=== PATIENT | male | born 1970 | race Caucasian/White ===

== ENCOUNTER → 2017-08-19 16:38 | Outpatient (CLI) | payer MEDICAID, SELFPAY ==
[2017-08-19 17:53] LABS: C-Reactive Protein < 0.2 mg/L (0.0-0.9)
[2017-08-19 19:29] LABS: Erythrocyte Sedimentation Rate 5 mm/hr (0-15)
== END ==
PROVIDERS: PCP Emergency Medicine; Visit Provider Orthopaedic Surgery
DX: T84.84XA Pain due to internal orthopedic prosthetic devices, implants and grafts, initial encounter (principal)
CPT/HCPCS: 36415; 85651; 86140

== ENCOUNTER → 2017-10-07 08:24 | Outpatient (CLI) | payer MEDICAID, SELFPAY ==
--- NOTE | 2017-10-07 08:23 | XR_ITS ---
XR shoulder RT min 2V HISTORY: ITS.REASON: Right shoulder pain ORDERING PHYSICIAN: Varinder Zazueta MD PATIENT AGE: 46 years COMPARISON: FINDINGS: No fracture or dislocation. No lytic or blastic change. There is normal mineralization. The joint spaces are well-preserved. No significant degenerative/arthritic changes. No erosive changes evident. No significant subacromial stenosis IMPRESSION: Negative, no acute finding
== END ==
PROVIDERS: Family Provider Nurse Practitioner Family; PCP Emergency Medicine; Visit Provider Orthopaedic Surgery
DX: M25.511 Pain in right shoulder (principal)
CPT/HCPCS: 73030

== ENCOUNTER 2017-11-03 15:00 | Outpatient (RCR) | payer MEDICAID, SELFPAY ==
--- NOTE | 2017-10-13 13:37 | HMH.PTOPEV ---
Rehab Outpatient Evaluation Rehab OP Evaluation Start: 10/13/17 13:19 Freq: Status: Active Protocol: Document 10/13/17 13:19 RMARSHALOlivia (Rec: 10/13/17 13:37 [id number] Electronically Signed By Shirley Oliva OT 10/13/17 13:19 Outpatient Therapy Subjective History Subjective History Pt is a 46 year old male who reports to therapy for initial evaluation to Right shoulder. Pt reports his pain began in July 2017 at right shoulder. However, pt does not recall a specific injury causing his pain. Pt does demonstrate with slight decrease of AROM and strength at right shoulder upon evaluation. Pt also informed therapist that last he did have an injection in the shoulder and since then the joint has been less painful. Pt will continue to be seen in order to address these deficits. Chief Complaint Pain Stiff Symptom Type Ache Throb Sharp Stabbing Shooting Symptoms Relieved By Nothing Symptoms Aggravated By Physical Activity Lifting Prior Functional Limitations None Current Functional Limitations Reaching Lifting Housework Driving Sleeping Recreation Activity Symptom Description Intermittent Activity Dependent Level of pain today (0-10) 1 Pain scale - at its best (0-10) 1 Pain scale - at its worst (0-10) 8 Shoulder/Elbow Eval Shoulder Objective Measurements Shoulder ROM Left Shoulder Abduction Active Range of 170 degrees Motion (degrees) Shoulder Flexion Active Range of Motion 162 degrees (degrees) Query Text: Shoulder External Rotation Active Range 85 degrees of Motion (degrees) Shoulder Internal Rotation Active Range 90 degrees of Motion (degrees) pain with active ROM shoulder exam left standard pain with passive ROM shoulder exam left
== END 2017-11-03 15:01 | disposition home or self-care (01) ==
LOC: OT 15:00
PROVIDERS: Family Provider Nurse Practitioner Family; PCP Emergency Medicine; Visit Provider Orthopaedic Surgery
DX: M75.41 Impingement syndrome of right shoulder (principal)
CPT/HCPCS: 97014; 97033; 97110; 97166; G0283

== ENCOUNTER 2018-02-17 11:00 | Outpatient (RCR) | payer MEDICAID, SELFPAY | END 2018-02-17 11:01 | disposition home or self-care (01) | LOC: OT 11:00 | PROVIDERS: Family Provider Nurse Practitioner Family; PCP Emergency Medicine; Visit Provider Orthopaedic Surgery | DX: M75.41 Impingement syndrome of right shoulder (principal) | CPT/HCPCS: 97033; 97110; 97165 ==

== ENCOUNTER → 2018-11-30 12:26 | Outpatient (CLI) | payer MEDICAID, SELFPAY ==
[2018-11-30 12:47] LABS: Basophils # 0.1 K/mm3 (0-0.2); Basophils % 1.3 % (0.1-2.0); Eosinophils # 0.3 K/mm3 (0.0-0.4); Eosinophils % 4.7 % (0.1-12.0); Hematocrit 49.7 % (42.0-52.0); Hemoglobin 15.6 g/dL (14.1-18.0); Lymphocytes # 1.9 K/mm3 (0.7-4.5); Lymphocytes % 26.4 % (10-50); Mean Corpuscular HGB Conc 31.3 g/dL (31.8-35.4); Mean Corpuscular Hemoglobin 28.7 pg (27.0-31.2); Mean Corpuscular Volume 91.6 fl (80-94); Mean Platelet Volume 8.5 fl (7.4-10.4); Monocytes # 0.5 K/mm3 (0.1-1.0); Monocytes % 6.8 % (1.7-9.3); Neutrophils # 4.4 K/mm3 (1.8-7.8); Neutrophils % 60.8 % (37.0-80.0); Platelet Count 257 K/mm3 (142-424); Red Blood Count 5.43 M/mm3 (4.60-6.20); Red Cell Distribution Width 13.4 % (11.5-17.5); White Blood Count 7.3 K/mm3 (4.8-10.8)
[2018-11-30 13:32] LABS: Amphetamine/Metha Screen,Urine Negative ng/mL (<1000); Barbiturates Screen,Urine Negative ng/mL (<200); Benzodiazepines Screen,Urine Negative ng/mL (<200); Cannabinoid Screen,Urine Negative ng/mL (<50); Cocaine Screen,Urine Negative ng/mL (<300); Methadone Screen,Urine Negative ng/mL (<300); Opiate Screen,Urine Positive ng/mL (<300); Phencyclidine Screen,Urine Negative ng/mL (<25)
[2018-11-30 14:40] LABS: Alanine Aminotransferase 79 U/L (12-78); Albumin Level 3.9 gm/dL (3.4-5.0); Alkaline Phosphatase 89 U/L (46-116); Anion Gap 16.7 mEq/L (5-15); Aspartate Amino Transferase 58 U/L (15-37); Bilirubin,Total 0.9 mg/dL (0.2-1.0); Blood Urea Nitrogen 16 mg/dL (7-18); Calcium 9.2 mg/dL (8.5-10.1); Carbon Dioxide 25 mmol/L (21.0-32.0); Chloride 102 mmol/L (98-107); Chol/HDL Ratio 7.6 (1-3.5); Cholesterol 242 mg/dL (140-200); Creatinine,Serum 1.17 mg/dL (0.70-1.30); Estimated Glomerular Filt Rate 67 ml/min (>60); Free Thyroxine Index 1.7 ug/dL (5.93-13.13); GFR (African American) 82 ML/MIN (>60); Globulin 3.8 gm/dl (1.3-3.2); Glucose 156 mg/dL (74-106); HDL Cholesterol 32 mg/dL (27-67); LDL Cholesterol 143 mg/dL (0-130); Potassium 4.7 mmoL/L (3.5-5.1); Sodium 139 mmol/L (136-145); T4 (Thyroxine) 5.8 ug/dl (4.7-13.3); Thyroid Stimulating Hormone 2.77 uIU/ml (0.358-3.740); Total Protein,Serum 7.7 gm/dL (6.4-8.2); Triglycerides 337 mg/dL (30-200); Triiodothryronine (T3) Uptake 30 % (31-39); VLDL Cholesterol 67 mg/dL (0-40)
== END ==
PROVIDERS: Visit Provider Nurse Practitioner Psychiatric/Mental Health
DX: F31.81 Bipolar II disorder (principal)
CPT/HCPCS: 36415; 80053; 80061; 80305; 84436; 84443; 84479; 85025

== ENCOUNTER → 2020-01-31 08:28 | Outpatient (CLI) | payer MEDICAID, SELFPAY ==
[2020-01-31 09:01] LABS: Basophils # 0.1 K/mm3 (0-0.2); Basophils % 1.1 % (0.1-2.0); Eosinophils # 0.5 K/mm3 (0.0-0.4); Eosinophils % 4.9 % (0.1-12.0); Hematocrit 42.7 % (42.0-52.0); Hemoglobin 14.9 g/dL (14.1-18.0); Lymphocytes # 2.1 K/mm3 (0.7-4.5); Lymphocytes % 22.2 % (10-50); Mean Corpuscular Hemoglobin 30.6 pg (27.0-31.2); Mean Corpuscular Volume 87.4 fl (80-94); Mean Platelet Volume 7.4 fl (7.4-10.4); Monocytes # 0.9 K/mm3 (0.1-1.0); Monocytes % 9.2 % (1.7-9.3); Neutrophils % 62.5 % (37.0-80.0); Platelet Count 343 K/mm3 (142-424); Red Blood Count 4.88 M/mm3 (4.60-6.20); Red Cell Distribution Width 13.6 % (11.5-17.5); White Blood Count 9.6 K/mm3 (4.8-10.8)
[2020-01-31 10:35] LABS: Chloride 103 mmol/L (98-107); Potassium 4.8 mmoL/L (3.5-5.1); Sodium 137 mmol/L (136-145)
[2020-01-31 10:38] LABS: Alanine Aminotransferase 36 U/L (12-78); Albumin Level 4.3 g/dl (3.5-5.0); Albumin/Globulin Ratio 1.5 (1.1-1.8); Alkaline Phosphatase 75 U/L (38-126); Anion Gap 15.8 mEq/L (5-15); Aspartate Amino Transferase 38 U/L (17-59); Bilirubin,Total 0.6 mg/dl (0.2-1.3); Blood Urea Nitrogen 19 mg/dl (9-20); Carbon Dioxide 23 mmol/L (22.0-30.0); Cholesterol 233 mg/dl (140-200); Estimated Glomerular Filt Rate 80 ml/min (>60); GFR (African American) 97 ML/MIN (>60); Globulin 2.8 g/dL (1.3-3.2); Total Protein,Serum 7.1 g/dl (6.3-8.2); Triglycerides 282 mg/dl (30-150); VLDL Cholesterol 56 mg/dL (0-40)
[2020-01-31 10:39] LABS: Calcium 10.1 mg/dl (8.4-10.2); Chol/HDL Ratio 7.8 (1-3.5); Glucose 132 mg/dl (74-100); HDL Cholesterol 30 mg/dl (40-60)
[2020-01-31 10:50] LABS: Direct LDL Cholesterol 154.86 mg/dL (100-129)
[2020-01-31 10:56] LABS: T4 (Thyroxine) 7.2 ug/dl (5.53-11.0)
[2020-01-31 11:09] LABS: Thyroid Stimulating Hormone 2.38 uIU/mL (0.465-4.68)
[2020-01-31 11:24] LABS: 25-OH Vitamin D, Total 28.2 ng/mL (30-100)
[2020-02-02 16:25] LABS: Hemoglobin A1C 6.6 % (4.0-6.0)
== END ==
PROVIDERS: Visit Provider Nurse Practitioner Family
DX: I10 Essential (primary) hypertension (principal); Z13.0 Encounter for screening for diseases of the blood and blood-forming organs and certain disorders involving the immune mechanism; Z13.21 Encounter for screening for nutritional disorder; Z13.29 Encounter for screening for other suspected endocrine disorder; R73.9 Hyperglycemia, unspecified; E55.9 Vitamin D deficiency, unspecified
CPT/HCPCS: 36415; 80053; 80061; 82306; 83036; 84436; 84443; 85025

== ENCOUNTER → 2020-03-13 13:51 | Outpatient (CLI) | payer MEDICAID, SELFPAY ==
[2020-03-13 14:31] LABS: Microalbumin/Creatinine Ratio 33.6
[2020-03-13 14:49] LABS: Creatinine,Urine Random 69 mg/dL (Not Estab.)
== END ==
PROVIDERS: Visit Provider Nurse Practitioner Family
DX: E11.9 Type 2 diabetes mellitus without complications (principal)
CPT/HCPCS: 82043; 82570

== ENCOUNTER → 2020-06-12 18:23 | Outpatient (CLI) | payer MEDICAID, SELFPAY ==
[2020-06-12 18:47] LABS: Basophils # 0.2 K/mm3 (0-0.2); Basophils % 2.8 % (0.1-2.0); Eosinophils # 0.4 K/mm3 (0.0-0.4); Eosinophils % 5.8 % (0.1-12.0); Hematocrit 48.7 % (42.0-52.0); Hemoglobin 16.4 g/dL (14.1-18.0); Lymphocytes # 1.5 K/mm3 (0.7-4.5); Lymphocytes % 23.6 % (10-50); Mean Corpuscular HGB Conc 33.7 g/dL (31.8-35.4); Mean Corpuscular Volume 86.1 fl (80-94); Mean Platelet Volume 11.5 fl (7.4-10.4); Monocytes # 0.5 K/mm3 (0.1-1.0); Monocytes % 8.2 % (1.7-9.3); Neutrophils # 3.8 K/mm3 (1.8-7.8); Neutrophils % 59.7 % (37.0-80.0); Platelet Count 313 K/mm3 (142-424); Red Blood Count 5.66 M/mm3 (4.60-6.20); Red Cell Distribution Width 15.8 % (11.5-17.5); White Blood Count 6.4 K/mm3 (4.8-10.8)
[2020-06-12 18:56] LABS: Alanine Aminotransferase 46 U/L (12-78); Albumin Level 4.7 g/dl (3.5-5.0); Albumin/Globulin Ratio 1.6 (1.1-1.8); Alkaline Phosphatase 84 U/L (38-126); Anion Gap 15.2 mEq/L (5-15); Aspartate Amino Transferase 36 U/L (17-59); Bilirubin,Total 0.9 mg/dl (0.2-1.3); Blood Urea Nitrogen 25 mg/dl (9-20); Calcium 10.2 mg/dl (8.4-10.2); Carbon Dioxide 23 mmol/L (22.0-30.0); Chloride 104 mmol/L (98-107); Chol/HDL Ratio 4.7 (1-3.5); Cholesterol 210 mg/dl (140-200); Estimated Glomerular Filt Rate 80 ml/min (>60); GFR (African American) 97 ML/MIN (>60); Globulin 2.9 g/dL (1.3-3.2); Glucose 124 mg/dl (74-100); HDL Cholesterol 45 mg/dl (40-60); Potassium 4.2 mmoL/L (3.5-5.1); Sodium 138 mmol/L (136-145); Total Protein,Serum 7.6 g/dl (6.3-8.2); Triglycerides 321 mg/dl (30-150); VLDL Cholesterol 64 mg/dL (0-40)
[2020-06-12 19:07] LABS: Direct LDL Cholesterol 112.44 mg/dL (100-129)
[2020-06-12 19:13] LABS: T4 (Thyroxine) 5.4 ug/dl (5.53-11.0)
[2020-06-12 19:27] LABS: Thyroid Stimulating Hormone 2.87 uIU/mL (0.465-4.68)
[2020-06-12 21:52] LABS: Hemoglobin A1C 5.7 % (4.0-6.0)
== END ==
PROVIDERS: PCP Nurse Practitioner Family; Visit Provider Nurse Practitioner Family
DX: E11.9 Type 2 diabetes mellitus without complications (principal); I10 Essential (primary) hypertension; Z79.899 Other long term (current) drug therapy
CPT/HCPCS: 80053; 80061; 82306; 83036; 84436; 84443; 85025

== ENCOUNTER → 2020-06-17 17:36 | Outpatient (CLI) | payer MEDICAID, SELFPAY | PROVIDERS: PCP Nurse Practitioner Family; Visit Provider Nurse Practitioner Family | DX: Z20.822 Contact with and (suspected) exposure to COVID-19 (principal); U07.1 COVID-19 | CPT/HCPCS: U0003 ==

== ENCOUNTER → 2020-09-23 15:31 | Outpatient (CLI) | payer MEDICAID, SELFPAY ==
[2020-09-23 16:32] LABS: Basophils # 0.1 K/mm3 (0-0.2); Basophils % 1.1 % (0.1-2.0); Eosinophils # 0.2 K/mm3 (0.0-0.4); Eosinophils % 3.2 % (0.1-12.0); Hematocrit 46.9 % (42.0-52.0); Hemoglobin 15.2 g/dL (14.1-18.0); Lymphocytes # 1.6 K/mm3 (0.7-4.5); Lymphocytes % 20.6 % (10-50); Mean Corpuscular HGB Conc 32.5 g/dL (31.8-35.4); Mean Corpuscular Hemoglobin 28.3 pg (27.0-31.2); Mean Corpuscular Volume 87.2 fl (80-94); Monocytes # 0.6 K/mm3 (0.1-1.0); Monocytes % 7.9 % (1.7-9.3); Neutrophils # 5.2 K/mm3 (1.8-7.8); Neutrophils % 67.4 % (37.0-80.0); Platelet Count 321 K/mm3 (142-424); Red Blood Count 5.38 M/mm3 (4.60-6.20); Red Cell Distribution Width 13.6 % (11.5-17.5); White Blood Count 7.7 K/mm3 (4.8-10.8)
[2020-09-23 16:39] LABS: Creatinine,Urine Random 135 mg/dL (Not Estab.)
[2020-09-23 16:44] LABS: Microalbumin/Creatinine Ratio 109.7
[2020-09-23 16:54] LABS: Hemoglobin A1C 5.8 % (4.0-6.0)
[2020-09-23 17:04] LABS: Alanine Aminotransferase 51 U/L (12-78); Albumin/Globulin Ratio 1.9 (1.1-1.8); Alkaline Phosphatase 86 U/L (38-126); Anion Gap 15.9 mEq/L (5-15); Aspartate Amino Transferase 39 U/L (17-59); Bilirubin,Total 0.7 mg/dl (0.2-1.3); Blood Urea Nitrogen 20 mg/dl (9-20); Calcium 10.2 mg/dl (8.4-10.2); Carbon Dioxide 22 mmol/L (22.0-30.0); Chloride 106 mmol/L (98-107); Chol/HDL Ratio 4.8 (1-3.5); Cholesterol 222 mg/dl (140-200); Estimated Glomerular Filt Rate 104 ml/min (>60); GFR (African American) 125 ML/MIN (>60); Globulin 2.6 g/dL (1.3-3.2); Glucose 115 mg/dl (74-100); HDL Cholesterol 46 mg/dl (40-60); Potassium 4.9 mmoL/L (3.5-5.1); Sodium 139 mmol/L (136-145); Total Protein,Serum 7.6 g/dl (6.3-8.2); Triglycerides 206 mg/dl (30-150); VLDL Cholesterol 41 mg/dL (0-40)
[2020-09-23 17:16] LABS: Direct LDL Cholesterol 124.95 mg/dL (100-129)
[2020-09-23 17:22] LABS: 25-OH Vitamin D, Total 121 ng/mL (30-100); T4 (Thyroxine) 5.7 ug/dl (5.53-11.0)
[2020-09-23 17:35] LABS: Prostate Specific Ag Screen 0.4 ng/ml (0.0-4.0); Thyroid Stimulating Hormone 0.99 uIU/mL (0.465-4.68)
== END ==
PROVIDERS: Visit Provider Nurse Practitioner Family
DX: E11.9 Type 2 diabetes mellitus without complications (principal); I10 Essential (primary) hypertension; E67.3 Hypervitaminosis D
CPT/HCPCS: 36415; 80053; 80061; 82043; 82306; 82570; 83036; 84436; 84443; 85025; G0103

== ENCOUNTER 2020-11-15 14:33 | Emergency (ER) | payer MEDICAID, SELFPAY ==
[2020-11-15 15:08] VITALS: BP 132/83; PULSE 84; RESP 19; TEMP 36.7; O2SAT 96; BMI 31.0
[2020-11-15 15:26] VITALS: BP 131/86; PULSE 75; RESP 16; TEMP 36.6; O2SAT 98; BMI 30.5
[2020-11-15 15:30] VITALS: BP 142/76; PULSE 85; RESP 20; O2SAT 97
--- NOTE | 2020-11-15 15:38 | CT_ITS ---
PROCEDURE INFORMATION: Exam: CT Right Lower Extremity Without Contrast; Lower Leg Exam date and time: 11/15/2020 3:38 PM Age: 49 years old Clinical indication: Pain; Lower leg; Right; Prior surgery; Additional info: Trauma. . . Log fell on leg 1 week ago; Severe bruising around calf area TECHNIQUE: Imaging protocol: CT of the Right lower extremity without contrast was performed. Exam focused on the lower leg. 3D rendering (Not supervised by radiologist): MIP and/or 3D reconstructed images were created by the technologist. Radiation optimization: All CT scans at this facility use at least one of these dose optimization techniques: automated exposure control; mA and/or kV adjustment per patient size (includes targeted exams where dose is matched to clinical indication); or iterative reconstruction. COMPARISON: No relevant prior studies available. FINDINGS: Bones/joints: No fracture. Postoperative changes in the knee. Soft tissues: 4.1 by 2.2 by 8 cm hematoma in the subcutaneous fat closely applied to the medial border of the mid tibia. IMPRESSION: 1. 4.1 by 2.2 by 8 cm hematoma in the subcutaneous fat closely applied to the medial border of the mid tibia. 2. No fracture.
--- NOTE | 2020-11-15 15:59 | HMH.EDGENADL ---
ED Disposition Clinical Impression: Crushing injury of right leg Qualifiers: Encounter type: initial encounter Qualified Code(s): S87.81XA - Crushing injury of right lower leg, initial encounter Disposition: Home, Self-Care Condition on Discharge: Good Instructions: DI for Crush Injury Referrals: Imani Peña APRN [Primary Care Provider] - - Critical Care Critical Care Time: No Attestation: On 11/15/20, the high probability of a clinically significant, sudden or life threatening deterioration of the following system(s) required my full and direct attention, intervention and personal management. The time I documented below is in addition to time spent performing reported procedures but includes the following listed in this critical care notation. Medical Decision Making - Medical Records Medical records reviewed: Yes: I reviewed the patient's medical records. - [place] Inquiry Pt receiving controlled substance: No Vital Signs: 11/15/20 15:08 11/15/20 15:26 11/15/20 15:30 Temperature 98.1 F 98 F Temperature Source Oral Oral Pulse Rate 85 Pulse Rate [Left] 84 75 Respiratory Rate 19 16 20 Blood Pressure 142/76 H Blood Pressure [Right Arm] 132/83 131/86 Blood Pressure Mean 98 Blood Pressure Mean [Right Arm] 99 101 02 Sat by Pulse Oximetry 96 98 97 Orders (Tests/Meds): ED MEDICATIONS Discontinued Medications Generic Name Dose Route Start Last Admin Trade Name Freq PRN Reason Stop Dose Admin Ibuprofen 800 mg 11/15/20 15:38 11/15/20 15:56 Ibuprofen 400 Mg Tablet PO 11/15/20 15:39 Not Given ONCE ONE - CT Data CT Scan: Other (right lower extremity) Time Received: 16:[address] Reviewed: Yes: I have reviewed the patient's CT results, I have viewed the radiologist's interpretation Findings Narrative: IMPRESSION: 1. 4.1 by 2.2 by 8 cm hematoma in the subcutaneous fat closely applied to the medial border of the mid tibia. 2. No fracture. - Reevaluation(s) Time: 16:28 Reevaluation #1: On reevaluation, patient is feeling much better. CT scan showed a large hematoma, however no fracture. Repeat neurologic exam is normal. Patient will follow with PCP. Given strict return precautions. Verbalized understanding. Medical Decision Narrative: 49-year-old male presented to the emergency department with a crush injury to the right leg. Patient is ambulatory at this time. Imaging will be obtained. General Adult HPI - General Chief complaint: Extremity Injury, Lower Stated complaint: ao rt leg pain 11/08 Time Seen by Provider: 11/15/20 15:15 Mode of Arrival: Ambulatory Limitations: No Limitations Description of Symptoms (Recalled from ER Triage Doc. by RN): pt was dragging a log and dropped it on his R leg last Wed. pt now has purple bruising down to his foot. on the inside of his lower leg he has a softball size hematoma. the log also clipped his L leg below the knee with a bruise about the size of a half dollar. - History of Present Illness HPI narrative: 49-year-old male presented to the emergency department with some pain in his right lower leg. Patient states that a week ago he had a log fall on his leg. He did not seek medical attention at that time. States that the swelling has been progressing throughout the week. However the ecchymosis has actually been improving. The patient did have some bruising from the upper knee all the way down to his ankle. Patient states that it is starting to lighten up a bit. States the pain is mostly located in the medial aspect of his lower leg. Is worse when the patient bears weight. He denies any new trauma to the injury. No other injuries were sustained. Denies any chest pain or shortness of breath. Abdominal pain or vomiting. Headache or change in vision. No focal weakness. - Related Data Home Medications Medication Instructions Recorded Confirmed bupropion HCl 300 mg 24 hr tablet, 300 mg PO DAILY tab
[2020-11-15 16:39] VITALS: BP 114/67; PULSE 68; RESP 19; TEMP 36.8
== END 2020-11-15 16:39 | disposition home or self-care (01) ==
LOC: UTC 14:36 → ER 15:22
PROVIDERS: Emergency Provider Physician Assistant; PCP Nurse Practitioner Family
DX: S87.81XA Crushing injury of right lower leg, initial encounter (principal); W22.8XXA Striking against or struck by other objects, initial encounter; Y92.89 Other specified places as the place of occurrence of the external cause; E11.9 Type 2 diabetes mellitus without complications; E78.5 Hyperlipidemia, unspecified; K21.9 Gastro-esophageal reflux disease without esophagitis; I10 Essential (primary) hypertension
CPT/HCPCS: 73700; 99282

== ENCOUNTER → 2020-12-05 12:57 | Outpatient (POV) | payer MEDICAID, SELFPAY | PROVIDERS: Visit Provider Internal Medicine Nephrology | DX: Z00.00 Encounter for general adult medical examination without abnormal findings (principal) ==

== ENCOUNTER → 2020-12-27 13:05 | Outpatient (CLI) | payer MEDICAID, SELFPAY ==
--- NOTE | 2020-12-27 13:09 | XR_ITS ---
PROCEDURE: XR HAND LT MIN 3V CLINICAL INDICATION: BL thumb pain COMPARISON: CR [id number] XR hand RT min 3V from 07/09/2018 FINDINGS: No fracture or dislocation. No lytic or blastic change. There is normal mineralization. The joint spaces are well-preserved. Minor degenerative changes of the 1st CMC joint. No erosive changes evident. Other: No significant soft tissue abnormality. IMPRESSION: No acute findings. Dictated by: Aspen Mosquera 12/27/2020 13:39 Aspen Mosquera in [place] 12/27/2020 13:39
--- NOTE | 2020-12-27 13:09 | XR_ITS ---
PROCEDURE: XR HAND RT MIN 3V CLINICAL INDICATION: BL thumb pain COMPARISON: CR [id number] XR hand RT min 3V from 07/09/2018 FINDINGS: Deformity of the right 5th metacarpal is noted, likely sequela of prior injury. No interval change. Healed fracture at the base of the middle phalanx of the right 4th digit. The rest of the carpals, metacarpals and phalanges are unremarkable. No acute fractures or dislocations. Bone density is normal. The joint spaces are well-preserved. No significant degenerative/arthritic changes. No erosive changes evident. Other findings:No significant soft tissue abnormality. IMPRESSION: Deformity of the right 5th metacarpal. Otherwise unremarkable study. Dictated by: Aspen Mosquera 12/27/2020 13:38 Aspen Mosquera in [facility] 12/27/2020 13:38
== END ==
PROVIDERS: PCP Nurse Practitioner Family; Visit Provider Orthopaedic Surgery
DX: M79.644 Pain in right finger(s) (principal); M79.645 Pain in left finger(s)
CPT/HCPCS: 73130

== ENCOUNTER → 2021-01-22 07:53 | Outpatient (CLI) | payer MEDICAID, SELFPAY ==
--- NOTE | 2021-01-22 08:03 | XR_ITS ---
PROCEDURE: XR CHEST 2V CLINICAL HISTORY: rib pain COMPARISON: No exams were available for comparison FINDINGS: The cardiomediastinal silhouette and pulmonary vascularity are within normal limits. The lungs are clear without infiltrates, suspicious nodules, or pleural effusions. No acute bony abnormalities. IMPRESSION: No acute findings. Dictated by: Jacob Cerrato MD 01/22/2021 08:13 Jacob Cerrato MD in [facility] 01/22/2021 08:13
== END ==
PROVIDERS: PCP Nurse Practitioner Family; Visit Provider Nurse Practitioner Family
DX: R10.9 Unspecified abdominal pain (principal)
CPT/HCPCS: 71046

== ENCOUNTER 2021-01-29 11:42 | Outpatient (RCR) | payer MEDICAID, SELFPAY | END 2021-01-29 13:00 | disposition home or self-care (01) | LOC: OT 11:42 | PROVIDERS: Visit Provider Orthopaedic Surgery | DX: G56.03 Carpal tunnel syndrome, bilateral upper limbs (principal) | CPT/HCPCS: 97763 ==

== ENCOUNTER 2021-01-31 08:16 | Outpatient (RCR) | payer MEDICAID, SELFPAY ==
--- NOTE | 2021-01-31 09:20 | HMH.PTOPEV ---
PT Outpatient Evaluation Rehab PT Outpatient Evaluation Start: 01/31/21 08:24 Freq: Status: Active Protocol: Document 01/31/21 09:09 TRISHA (Rec: 01/31/21 09:20 PHOROBERT [id number]) Electronically Signed By Emre Reagan, PT 01/31/21 09:09 Outpatient Therapy Subjective History Subjective History Pt is 50 yowm who presents with c/o intermittent pain in posterior side of his left flank x ~ 2-3 mos with insidious onset. He reports pain is sharp and can last anywhere from 5 mins to many hours. He reports no particular activity, movement, or time of day that exacerbates his symptoms. He reports trying ice, heat, and topical creams with no relief. He reports no numbness or tingling in the area. He states, It about the size of my fist right below my shoulder blade on my ribs. He does have hx of donating a kidney to a family member in the past, but he is unsure which side the kidney was removed from. Chief Complaint Pain Symptom Type Sharp Symptoms Relieved By Nothing Prior Functional Limitations None Current Functional Limitations Sleeping Symptom Description Intermittent Level of pain today (0-10) 0 Pain scale - at its worst (0-10) 7 Lumbopelvic Eval Posture Thoracic Spine Posture Standing Position Neutral Lumbar Spine Posture Standing Position Neutral Range of Motion Lumbar Spine ROM Reason Not Measured Within Functional Limits Outpatient Therapy Assessment Impairments Problems/Impairmments Impaired Recreational Activities,Subjective C/O Pain ,Impaired Self Care/Self Management Prognosis Rehab Potential Good Clinical Impression Consistent with Diagnosis Yes Short Term Goals Number of Weeks 4 Decrease Subjective C/O Pain Yes: 4/10 at worst Patient to be Ind w/ HEP Yes Longterm Goals Number of Weeks 8 Return to Recreational Activities Yes: without pain Decrease Subjective C/O Pain Yes: 2/10 at worst Patient to be Ind w/ Advanced HEP Yes Outpatient Therapy Plan of Care Treatment Plan May Include Therapeutic Exercise Including Home
== END 2021-01-31 08:20 | disposition home or self-care (01) ==
LOC: PT 08:16
PROVIDERS: Visit Provider Nurse Practitioner Family
DX: R10.9 Unspecified abdominal pain (principal)
CPT/HCPCS: 97163

== ENCOUNTER → 2021-03-04 09:53 | Outpatient (CLI) | payer MEDICAID, SELFPAY ==
--- NOTE | 2021-03-04 09:55 | XR_ITS ---
PROCEDURE: XR ANKLE WT BEARING RT MIN 3V CLINICAL INDICATION: ankle pain COMPARISON: No exams were available for comparison FINDINGS: Bones: No fracture or dislocation. No lytic or blastic change. There is normal mineralization. Joints: The joint spaces are well-preserved. No significant degenerative/arthritic changes. No erosive changes evident. Other findings:There is a small calcaneal spur IMPRESSION: No acute findings. Dictated by: Jacob Cerrato MD 03/04/2021 11:53 Jacob Cerrato MD in [place] 03/04/2021 11:53
== END ==
PROVIDERS: PCP Emergency Medicine; Visit Provider Orthopaedic Surgery
DX: M25.571 Pain in right ankle and joints of right foot (principal)
CPT/HCPCS: 73610

== ENCOUNTER → 2021-06-03 18:27 | Outpatient (CLI) | payer MEDICAID, SELFPAY ==
[2021-06-03 20:05] LABS: Alanine Aminotransferase 38 U/L (12-78); Albumin Level 4.3 g/dl (3.5-5.0); Albumin/Globulin Ratio 1.5 (1.1-1.8); Alkaline Phosphatase 70 U/L (38-126); Anion Gap 14.2 mEq/L (5-15); Aspartate Amino Transferase 65 U/L (17-59); Bilirubin,Total 1.1 mg/dl (0.2-1.3); Blood Urea Nitrogen 27 mg/dl (9-20); Calcium 9.1 mg/dl (8.4-10.2); Carbon Dioxide 18 mmol/L (22.0-30.0); Chloride 107 mmol/L (98-107); Estimated Glomerular Filt Rate 103 ml/min (>60); GFR (African American) 125 ML/MIN (>60); Globulin 2.8 g/dL (1.3-3.2); Glucose 131 mg/dl (74-100); Potassium 5.2 mmoL/L (3.5-5.1); Sodium 134 mmol/L (136-145); Total Protein,Serum 7.1 g/dl (6.3-8.2)
[2021-06-03 20:20] LABS: T4 (Thyroxine) 4.7 ug/dl (5.53-11.0)
[2021-06-03 20:33] LABS: Thyroid Stimulating Hormone 1.04 uIU/mL (0.465-4.68)
== END ==
PROVIDERS: Visit Provider Nurse Practitioner Family
DX: R23.2 Flushing (principal)
CPT/HCPCS: 80053; 84403; 84436; 84443

== ENCOUNTER → 2021-07-24 07:35 | Outpatient (CLI) | payer MEDICAID, SELFPAY ==
[2021-07-24 09:37] LABS: Chloride 103 mmol/L (98-107); Sodium 132 mmol/L (136-145)
[2021-07-24 09:38] LABS: Potassium 4.6 mmoL/L (3.5-5.1)
[2021-07-24 09:40] LABS: Alanine Aminotransferase 25 U/L (12-78); Albumin Level 4.2 g/dl (3.5-5.0); Albumin/Globulin Ratio 1.8 (1.1-1.8); Alkaline Phosphatase 65 U/L (38-126); Anion Gap 7.6 mEq/L (5-15); Aspartate Amino Transferase 25 U/L (17-59); Bilirubin,Total 0.6 mg/dl (0.2-1.3); Blood Urea Nitrogen 21 mg/dl (9-20); Carbon Dioxide 26 mmol/L (22.0-30.0); Cholesterol 194 mg/dl (140-200); Estimated Glomerular Filt Rate 103 ml/min (>60); GFR (African American) 125 ML/MIN (>60); Globulin 2.4 g/dL (1.3-3.2); Total Protein,Serum 6.6 g/dl (6.3-8.2); Triglycerides 134 mg/dl (30-150); VLDL Cholesterol 27 mg/dL (0-40)
[2021-07-24 09:41] LABS: Calcium 8.7 mg/dl (8.4-10.2); Chol/HDL Ratio 3.9 (1-3.5); Glucose 112 mg/dl (74-100); HDL Cholesterol 50 mg/dl (40-60)
[2021-07-24 09:52] LABS: Direct LDL Cholesterol 119.07 mg/dL (100-129)
[2021-07-24 10:12] LABS: Thyroid Stimulating Hormone 2.06 uIU/mL (0.465-4.68)
[2021-07-24 11:40] LABS: Hemoglobin A1C 5.9 % (4.0-6.0)
== END ==
PROVIDERS: PCP Emergency Medicine; Visit Provider Nurse Practitioner Psychiatric/Mental Health
DX: F31.81 Bipolar II disorder (principal)
CPT/HCPCS: 36415; 80053; 80061; 83036; 84443

== ENCOUNTER → 2021-07-31 14:10 | Outpatient (CLI) | payer MEDICAID, SELFPAY ==
--- NOTE | 2021-07-31 14:13 | XR_ITS ---
FINAL REPORT CLINICAL HISTORY: injury with bruising, pt fell through a wood trailer floor last , bruising all over his left lower leg. FINDINGS: LEFT TIBIA FIBULA 2 views were obtained. There is no acute fracture or dislocation. The joint spaces are intact. There is a moderate plantar spur. There is no soft tissue abnormality. IMPRESSION: No acute bony abnormality. Reviewed, Interpreted and Dictated by Ayaan Gonzáles MD Transcribed by Kavita Dill Authenticated by Ayaan Gonzáles MD on 07/31/2021 03:58:34 PM [facility]
== END ==
PROVIDERS: PCP Physician Assistant; Visit Provider Physician Assistant
DX: S89.92XA Unspecified injury of left lower leg, initial encounter (principal)
CPT/HCPCS: 73590

== ENCOUNTER → 2021-11-13 09:28 | Outpatient (CLI) | payer MEDICAID, SELFPAY ==
--- NOTE | 2021-11-13 09:31 | XR_ITS ---
FINAL REPORT CLINICAL HISTORY: shoulder pain, no injury COMPARISON: October 07, 2017. FINDINGS: RIGHT SHOULDER: Four views of the right shoulder were obtained. There is no acute fracture or dislocation. There is mild acromioclavicular degenerative change. There is no soft tissue abnormality. IMPRESSION: No significant change with no acute fracture. Reviewed, Interpreted and Dictated by Cassius Andrade III, MD Transcribed by Ana Flores Authenticated and [facility]
--- NOTE | 2021-11-13 09:31 | XR_ITS ---
FINAL REPORT CLINICAL HISTORY: shoulder pain, no injury FINDINGS: LEFT SHOULDER Three views demonstrate no acute fracture or dislocation. There is mild acromioclavicular and mild glenohumeral joint degenerative change. The visualized bony structures are well aligned. There is a 3.6 cm lytic area in the humeral head which may represent a cyst. No soft tissue abnormality is seen. IMPRESSION: Mild degenerative change with no acute process. Probable cyst in the humeral head. Reviewed, Interpreted and Dictated by Cassius Andrade III, MD Transcribed by Ana Flores Authenticated and [facility]
== END ==
PROVIDERS: PCP Nurse Practitioner Family; Visit Provider Orthopaedic Surgery
DX: M25.512 Pain in left shoulder (principal); M25.511 Pain in right shoulder
CPT/HCPCS: 73030

== ENCOUNTER → 2021-12-06 08:20 | Outpatient (CLI) | payer MEDICAID, SELFPAY ==
[2021-12-06 08:47] LABS: Microscopic, Urine URINE MICROSCOPIC (MICROSCOPIC)
[2021-12-06 09:15] LABS: Hematocrit 46.7 % (42.0-52.0); Hemoglobin 14.7 g/dL (14.1-18.0); Mean Corpuscular HGB Conc 31.5 g/dL (31.8-35.4); Mean Corpuscular Hemoglobin 29.2 pg (27.0-31.2); Mean Corpuscular Volume 92.8 fl (80-94); Platelet Count 251 K/mm3 (142-424); Red Blood Count 5.03 M/mm3 (4.60-6.20); Red Cell Distribution Width 13.8 % (11.5-17.5); White Blood Count 7.3 K/mm3 (4.8-10.8)
[2021-12-06 09:48] LABS: Albumin Level 4.2 g/dl (3.5-5.0); Anion Gap 9.2 mEq/L (5-15); Blood Urea Nitrogen 22 mg/dl (9-20); Calcium 9.7 mg/dl (8.4-10.2); Carbon Dioxide 28 mmol/L (22.0-30.0); Chloride 103 mmol/L (98-107); Estimated Glomerular Filt Rate 103 ml/min (>60); GFR (African American) 125 ML/MIN (>60); Glucose 144 mg/dl (74-100); Phosphorous 3.9 mg/dl (2.5-4.5); Potassium 4.2 mmoL/L (3.5-5.1); Sodium 136 mmol/L (136-145)
[2021-12-06 09:55] LABS: Creatinine,Urine Random 104 mg/dL (Not Estab.)
[2021-12-06 09:56] LABS: Appearance,Urine CLEAR (Clear); Bilirubin,Urine Negative (Negative); Blood, Urine Negative (Negative); Color,Urine YELLOW (Yellow); Glucose,Urine (UA) Negative (Negative); Ketones,Urine Negative (Negative); Leukocyte Esterase,Urine Negative (Negative); Nitrate,Urine Negative (Negative); PH,Urine 5.5 (5.0-8.5); Protein,Urine 1+ (Negative); Specific Gravity, Urine >= 1.030 (1.005-1.030); Urobilinogen,Urine 0.2 EU/dl (0.2)
[2021-12-06 09:59] LABS: Intact Parathyroid Hormone 26.9 pg/mL (7.5-53.5)
[2021-12-06 10:06] LABS: 25-OH Vitamin D, Total 37.2 ng/mL (30-100)
[2021-12-06 10:25] LABS: Bacteria,Urine Trace /lpf; Squamous Epithelial Cell,Urine Occasional #/hpf (0-5)
== END ==
PROVIDERS: PCP Physician Assistant; Visit Provider Internal Medicine Nephrology
DX: N18.1 Chronic kidney disease, stage 1 (principal)
CPT/HCPCS: 80069; 81001; 82306; 82570; 83970; 84155; 85014; 85018; 85048; 85049

== ENCOUNTER → 2021-12-11 13:09 | Outpatient (POV) | payer MEDICAID, SELFPAY | PROVIDERS: Visit Provider Internal Medicine Nephrology | DX: Z00.00 Encounter for general adult medical examination without abnormal findings (principal) ==

== ENCOUNTER 2021-12-26 08:00 | Outpatient (RCR) | payer MEDICAID, SELFPAY ==
--- NOTE | 2021-11-18 09:26 | HMH.OTOPEV ---
OT Inpatient Evaluation Rehab OT Outpatient Eval Start: 11/18/21 09:02 Freq: Status: Active Protocol: Document 11/18/21 09:02 ABADESHAUN (Rec: 11/18/21 09:26 DIRK [id number]) Electronically Signed By Josefina Ng OT 11/18/21 09:02 Outpatient Therapy Subjective History Subjective History 50 year old male referred to skilled OP OT services for B UE pain. Patient stated having pain in B shoulders over the past year. On 11/13/21 Patient recieved x-rays on B shoulders with no acute changes. Mild degenerative changes noted in B shoulders. Chief Complaint Pain,Weakness Symptom Type Ache,Throb Symptoms Relieved By Nothing Symptoms Aggravated By Physical Activity Prior Functional Limitations None Current Functional Limitations Reaching,Lifting,Recreation Activity Symptom Description Intermittent Level of pain today (0-10) 0 Pain scale - at its best (0-10) 8 Pain scale - at its worst (0-10) 8 Shoulder/Elbow Eval Shoulder Objective Measurements Shoulder ROM Right Shoulder Abduction Active Range of 105 Motion (degrees) Shoulder Flexion Active Range of Motion 108 (degrees) Query Text: Shoulder External Rotation Active Range 45 of Motion (degrees) Shoulder Internal Rotation Active Range 45 of Motion (degrees) pain with active ROM shoulder exam right standard Left Shoulder Abduction Active Range of 152 Motion (degrees) Shoulder Flexion Active Range of Motion 140 (degrees) Query Text: Shoulder External Rotation Active Range 50 of Motion (degrees) Shoulder Internal Rotation Active Range 50 of Motion (degrees) pain with active ROM shoulder exam left standard Shoulder MMT Bilateral Shoulder Extension Strength Grade 3- Fair- Shoulder Flexion Strength Grade 3- Fair- Shoulder Horizontal Abduction Strength 3- Fair- Grade Shoulder Horizontal Adduction Strength 3- Fair- Grade Infraspinatus/Teres Minor Strength Grade 3- Fair- Shoulder External Rotation Strength 3- Fair- Grade Shoulder Internal Rotation Strength 3- Fair- Grade Shoulder Special Tests impingement sign present shoulder exam bilateral standard Shoulder Empty Can (Supraspinatus) Test Positive Left,Positive Right Shoulder Hawk
== END 2021-12-26 09:00 | disposition home or self-care (01) ==
LOC: OT 08:00
PROVIDERS: PCP Nurse Practitioner Family; Visit Provider Orthopaedic Surgery
DX: M25.512 Pain in left shoulder (principal); M25.511 Pain in right shoulder
CPT/HCPCS: 97010; 97014; 97035; 97110; 97140; 97165; 97530; G0283

== ENCOUNTER → 2022-01-01 07:03 | Outpatient (CLI) | payer MEDICAID, SELFPAY ==
--- NOTE | 2022-01-01 07:04 | MR_ITS ---
PROCEDURE INFORMATION: Exam: MR Right Upper Extremity Joint Without Contrast; Shoulder Exam date and time: 01/01/2022 8:11 AM Age: 51 years old Clinical indication: Pain; Shoulder; Right; Additional info: Shoulder pain. Right shoulder pain for 1 year. No recent injury or trauma. Limited rom. TECHNIQUE: Imaging protocol: Magnetic resonance imaging of the Right upper extremity without contrast. Exam focused on the shoulder. COMPARISON: 1. CR XR SHOULDER RT MIN 2V 11/13/2021 10:01 AM 2. CR SHOULDCMRT XR shoulder RT min 2V 10/07/2017 8:42 AM FINDINGS: Limitations: Motion artifact. Bones and cartilage: Minimal subchondral cystic changes involve the superolateral humeral head. There is no acute fracture or dislocation. No aggressive bone lesions are present. The undersurface of the acromion has a normal curvature, consistent with a type II acromion. Joint spaces: There is mild primary osteoarthritis of the acromioclavicular joint. Glenoid labrum: Assessment of the labrum is significantly limited on this study. Supraspinatus tendon: Moderate tendinosis involves the supraspinatus tendon. Infraspinatus tendon: An intermediate grade partial thickness tear involves approximately a 4 mm region of the infraspinatus tendon bursal surface estimated to involve 50% of the tendon diameter although assessment is limited by the tear being obliquely oriented and partially seen on 2 image slices (series 5/images 11-12). Moderate tendinosis involves adjacent intact fibers of the infraspinatus tendon. Subscapularis tendon: Moderate tendinosis involves the subscapularis tendon. Teres minor tendon: No tear or significant tendinosis involves the teres minor tendon. Tendon of biceps brachii: Moderate tendinosis involves the intra-articular portion of the long head of the biceps tendon. Glenohumeral ligaments: Unremarkable as visualized. Muscles: The rotator cuff musculature demonstrates no significant edema or atrophy. Soft tissues: No focal fluid collection or suspicious mass. IMPRESSION: 1. Focal 4 mm, intermediate grade, partial-thickness tear of the infraspinatus tendon bursal surface. 2. Moderate tendinosis of the supraspinatus, subscapularis and long head of the biceps tendons. 3. Minimal subchondral cystic changes involving the humeral head without suspicious bone lesion. 4. 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 5. Study limited by motion artifact.
== END ==
PROVIDERS: PCP Physician Assistant; Visit Provider Orthopaedic Surgery
DX: M25.511 Pain in right shoulder (principal)
CPT/HCPCS: 73221

== ENCOUNTER → 2022-01-08 08:01 | Outpatient (CLI) | payer MEDICAID, SELFPAY ==
[2022-01-08 08:54] LABS: Chloride 103 mmol/L (98-107); Sodium 135 mmol/L (136-145)
[2022-01-08 08:55] LABS: Albumin Level 4.4 g/dl (3.5-5.0); Potassium 4.4 mmoL/L (3.5-5.1)
[2022-01-08 08:57] LABS: Blood Urea Nitrogen 26 mg/dl (9-20); Estimated Glomerular Filt Rate 103 ml/min (>60); GFR (African American) 124 ML/MIN (>60)
[2022-01-08 08:58] LABS: Anion Gap 13.4 mEq/L (5-15); Calcium 10.3 mg/dl (8.4-10.2); Carbon Dioxide 23 mmol/L (22.0-30.0); Glucose 119 mg/dl (74-100); Phosphorous 4.5 mg/dl (2.5-4.5)
== END ==
PROVIDERS: PCP Physician Assistant; Visit Provider Internal Medicine Nephrology
DX: N18.1 Chronic kidney disease, stage 1 (principal)
CPT/HCPCS: 36415; 80069

== ENCOUNTER 2022-02-04 06:05 | Emergency (ER) | payer MEDICAID, SELFPAY ==
[2022-02-04 06:16] VITALS: BP 154/89; PULSE 103; RESP 16; TEMP 37.8; O2SAT 97; BMI 42.0
--- NOTE | 2022-02-04 06:21 | XR_ITS ---
FINAL REPORT CLINICAL HISTORY: PAIN COMPARISON: November 13, 2021 FINDINGS: RIGHT SHOULDER Two views demonstrate no acute fracture or dislocation. There is mild degenerative change of the acromioclavicular joint. The visualized bony structures are well aligned. No soft tissue abnormality is seen. IMPRESSION: Mild degenerative change of the acromioclavicular joint. Reviewed, Interpreted and Dictated by Cassius Andrade III, MD Transcribed by Kavita Dill Authenticated and [facility]
--- NOTE | 2022-02-04 06:25 | HMH.EDGENADL ---
Discharge Plan Disposition Patient Disposition: Home, Self-Care Prescriptions Prescriptions: New prednisone [prednisone] 20 mg tablet 20 mg PO BID Qty: 10 0RF No Action fluoxetine 40 mg capsule 40 mg PO BID Label Comments: TAKE 1 CAPSULE BY MOUTH ONCE DAILY oxcarbazepine 600 mg tablet 600 mg PO BID (DME) Blood Glucose Test Strip See Rx Instructions MISCELLANEOUS Rx Instructions: Test sugar twice daily or as directed aspirin 81 mg tablet,delayed release (DR/EC) 81 mg PO DAILY Rx Instructions: Take 1 tablet by mouth once daily (DME) blood-glucose meter [Blood Glucose Monitoring] Kit See Rx Instructions MISCELLANEOUS Rx Instructions: As directed simvastatin 20 mg tablet 20 mg PO DAILY omeprazole 20 mg capsule,delayed release(DR/EC) 20 mg PO DAILY Rx Instructions: Take 1 capsule by mouth once daily hydrochlorothiazide 25 mg tablet 12.5 mg PO DAILY (DME) lancets [OneTouch Delica Plus Lancet] 33 gauge misc See Rx Instructions MISCELLANEOUS Rx Instructions: Test sugar twice daily or as directed loratadine 10 mg PO DAILY Rx Instructions: Take 1 tablet by mouth once daily morphine 15 mg tablet extended release 15 mg PO BID Referrals Follow up/Referrals: Aura Camejo PA [Primary Care Provider] - See instructions Clinical Impressions Clinical Impression: Right shoulder pain Instructions Patient Instructions: DI for Shoulder Pain Discharge ED Provider: Hieu Francois General Adult HPI General Chief complaint: PAIN Stated complaint: Right shoulder to elbow pain Time Seen by Provider: 02/04/22 06:26 Mode of Arrival: Ambulatory Source of Information: Patient and Medical Record Limitations: No Limitations Description of Symptoms (Recalled from ER Triage Doc. by RN): PT STATES HE WAS LIFTING AIR CONDITIONER ON WEDNESDAY AND HEARD A POP IN HIS RIGHT SHOULDER AND IS NOW HAVING RIGHT SHOULDER PAIN AND RIGHT UPPER AND MID BACK PAIN TO THE RIGHT OF HIS SPINE, IN THE MUSCLE. PT REPORTS HE IS A PATIENT AT THE PAIN CLINIC AT . History of Present Illness HPI narrative: acute injury to rt shoulder and post scaapular pain after lifting Onset (ago): day(s) Location: upper extremity Severity: moderate Quality: sharp Consistency: intermittent Associated symptoms: denies other symptoms Related Data Home Medications Medication Instructions Recorded Confirmed morphine 15 mg tablet,extended 15 mg PO BID knee 01/26/20 02/04/22 release fluoxetine 40 mg capsule 40 mg PO BID Depression 10/10/20 02/04/22 oxcarbazepine 600 mg tablet 600 mg PO BID neuropathic pain 04/14/21 02/04/22 aspirin 81 mg tablet,delayed 81 mg PO DAILY heart health 02/04/22 02/04/22 release blood sugar diagnostic (Blood 02/04/22 02/04/22 Glucose Test strips) blood-glucose meter (Blood Glucose 02/04/22 02/04/22 Monitoring kit) hydrochlorothiazide 25 mg tablet 12.5 mg PO DAILY htn 02/04/22 02/04/22 lancets 33 gauge (OneTouch Delica 02/04/22 02/04/22 Plus Lancet) loratadine 10 mg PO DAILY allergies 02/04/22 02/04/22 omeprazole 20 mg capsule,delayed 20 mg PO DAILY GERD 02/04/22 02/04/22 release simvastatin 20 mg tablet 20 mg PO DAILY hld 02/04/22 02/04/22 Previous Rx's Medication Instructions Recorded prednisone 20 mg tablet 20 mg PO BID #10 tabs 02/04/22 Allergies Allergy/AdvReac Type Severity Reaction Status Date / Time No Known Drug Allergies Allergy Unknown Verified 12/25/21 11:14 [facility] Medical History (Updated 02/04/22 @ 08:09 by Hieu Francois MD) Hypertension Right knee pain Social History Smoking Status: Former smoker second hand exposure: No alcohol intake: never substance use type: denies use current occupational status: other household members: family caffeine: No ROS Obtained: Yes All systems reviewed & no additional complaints e
[2022-02-04 06:30] VITALS: BP 136/83; PULSE 98; RESP 16; O2SAT 99
[2022-02-04 07:01] VITALS: BP 182/105; PULSE 95; O2SAT 98
[2022-02-04 07:50] VITALS: BP 142/107; PULSE 90; O2SAT 92
[2022-02-04 08:00] VITALS: BP 155/77; PULSE 85; O2SAT 100
[2022-02-04 08:24] VITALS: BP 155/77; PULSE 85; RESP 16; TEMP 37.3; O2SAT 100
[2022-02-04 08:41] LABS: Influenza A, PCR Not Detected (NotDetected); Influenza B, PCR Not Detected (NotDetected)
[2022-02-04 09:04] LABS: Coronavirus 19, PCR Detected (NotDetected)
== END 2022-02-04 08:25 | disposition home or self-care (01) ==
PROVIDERS: Emergency Provider Emergency Medicine; PCP Physician Assistant
DX: M25.511 Pain in right shoulder (principal); U07.1 COVID-19
CPT/HCPCS: 73030; 96372; 99283; C9803; U0003; U0005

== ENCOUNTER 2022-04-24 08:00 | Outpatient (RCR) | payer MEDICAID, SELFPAY ==
--- NOTE | 2022-03-10 10:55 | HMH.PTOPEV ---
PT Outpatient Evaluation Rehab PT Outpatient Evaluation Start: 03/10/22 08:33 Freq: Status: Active Protocol: Document 03/10/22 08:33 JANENE (Rec: 03/10/22 08:55 JANENE [id number]) E-signed By Jeovanny Guadarrama, PT Outpatient Therapy Subjective History Subjective History Patient is a 51 year old male presenting to outpatient PT with reports of B foot/ankle pain starting approximately 1 year ago. Symptoms of insidious onset. No recent imaging to report. Patient referred for B plantar fasciitis. Comorbidities include hx of R knee sx x 9, HTN, HL, diabetes and kideny donation. Chief Complaint Pain,Stiff Symptom Type Sharp Symptoms Relieved By Rest/Positioning,Prescription Meds Symptoms Aggravated By Standing,Physical Activity, Walking Prior Functional Limitations Housework,Standing,Walking Current Functional Limitations Housework,Standing,Walking Symptom Description Intermittent Level of pain today (0-10) 0 Pain scale - at its best (0-10) 0 Pain scale - at its worst (0-10) 8 Ankle/Foot Eval Gait Observation General Gait Pattern Observation Antalgic Gait,Decrease Weight Bear (R),Decrease Weight Bear (L) Palpation Tenderness bilateral Ankle/Foot Palpation Findings Tenderness Ankle/Foot Palpation Overall Comment calcaneal tubercle 3/4 ROM left Ankle/Foot Dorsiflexion w/Knee Extended 11 Active Range Motion (degrees) Ankle/Foot Plantar Flexion Active Range WNL of Motion (degrees) Ankle/Foot Eversion Active Range of 17 Motion (degrees) Ankle/Foot Inversion Active Range of WNL Motion (degrees) Ankle/Foot ROM Limitations Soft Tissue Tightness Great Toe ROM Limitations Soft Tissue Tightness Great Toe ROM Reason Not Measured Within Functional Limits right Ankle/Foot Dorsiflexion w/Knee Extended 10 Active Range Motion (degrees) Ankle/Foot Plantar Flexion Active Range WNL of Motion (degrees) Ankle/Foot Eversion Active Range of 19 Motion (degrees) Ankle/Foot Inversion Active Range of WNL Motion (degrees) Ankle/Foot ROM Limitations Soft Tissue Tightness MMT bilateral Ankle Dorsiflexion Strength Grade 5 Normal Ankle Plantarflexion Strength Grade 5 Normal Foot Eversion Strength Grade 5 Normal Foot Inversion Strength Grade 5 Normal
== END 2022-04-24 08:05 | disposition home or self-care (01) ==
LOC: PT 08:00
PROVIDERS: PCP Physician Assistant; Visit Provider Nurse Practitioner Family
DX: M72.2 Plantar fascial fibromatosis (principal); M79.672 Pain in left foot; M79.671 Pain in right foot
CPT/HCPCS: 97010; 97014; 97035; 97110; 97140; 97163; G0283

== ENCOUNTER → 2022-07-29 10:50 | Outpatient (CLI) | payer MEDICAID, SELFPAY ==
[2022-07-29 15:46] LABS: Basophils # 0.1 K/mm3 (0-0.2); Basophils % 1.7 % (0.1-2.0); Eosinophils # 0.3 K/mm3 (0.0-0.4); Eosinophils % 3.9 % (0.1-12.0); Hematocrit 44.3 % (42.0-52.0); Hemoglobin 14.8 g/dL (14.1-18.0); Lymphocytes # 1.8 K/mm3 (0.7-4.5); Lymphocytes % 23.2 % (10-50); Mean Corpuscular HGB Conc 33.4 g/dL (31.8-35.4); Mean Corpuscular Hemoglobin 29.9 pg (27.0-31.2); Mean Corpuscular Volume 89.4 fl (80-94); Mean Platelet Volume 8.4 fl (7.4-10.4); Monocytes # 0.8 K/mm3 (0.1-1.0); Monocytes % 9.6 % (1.7-9.3); Neutrophils # 4.8 K/mm3 (1.8-7.8); Neutrophils % 61.6 % (37.0-80.0); Platelet Count 381 K/mm3 (142-424); Red Blood Count 4.96 M/mm3 (4.60-6.20); Red Cell Distribution Width 13.4 % (11.5-17.5); White Blood Count 7.8 K/mm3 (4.8-10.8)
[2022-07-29 16:41] LABS: Alanine Aminotransferase 44 U/L (12-78); Albumin Level 4.5 g/dl (3.5-5.0); Albumin/Globulin Ratio 1.7 (1.1-1.8); Alkaline Phosphatase 102 U/L (38-126); Anion Gap 10.3 mEq/L (5-15); Aspartate Amino Transferase 40 U/L (17-59); Bilirubin,Total 0.5 mg/dl (0.2-1.3); Blood Urea Nitrogen 19 mg/dl (9-20); Calcium 9.3 mg/dl (8.4-10.2); Carbon Dioxide 22 mmol/L (22.0-30.0); Chloride 104 mmol/L (98-107); Chol/HDL Ratio 6.2 (1-3.5); Cholesterol 253 mg/dl (140-200); Estimated Glomerular Filt Rate 103 ml/min (>60); GFR (African American) 124 ML/MIN (>60); Globulin 2.7 g/dL (1.3-3.2); Glucose 135 mg/dl (74-100); HDL Cholesterol 41 mg/dl (40-60); Potassium 4.3 mmoL/L (3.5-5.1); Sodium 132 mmol/L (136-145); Total Protein,Serum 7.2 g/dl (6.3-8.2); Triglycerides 288 mg/dl (30-150); VLDL Cholesterol 58 mg/dL (0-40)
[2022-07-29 16:52] LABS: Direct LDL Cholesterol 145.54 mg/dL (100-129)
[2022-07-29 17:43] LABS: Hemoglobin A1C 6.4 % (4.0-6.0)
== END ==
PROVIDERS: PCP Nurse Practitioner Family; Visit Provider Nurse Practitioner Family
DX: R53.83 Other fatigue (principal); E11.9 Type 2 diabetes mellitus without complications; I10 Essential (primary) hypertension
CPT/HCPCS: 80053; 80061; 83036; 84443; 85025

== ENCOUNTER 2022-08-19 08:00 | Outpatient (RCR) | payer MEDICAID, SELFPAY | END 2022-08-19 08:05 | disposition home or self-care (01) | LOC: OT 08:00 | PROVIDERS: PCP Physician Assistant; Visit Provider Orthopaedic Surgery | DX: M25.511 Pain in right shoulder (principal); Z98.890 Other specified postprocedural states; S46.011D Strain of muscle(s) and tendon(s) of the rotator cuff of right shoulder, subsequent encounter | CPT/HCPCS: 97010; 97014; 97035; 97110; 97140; 97164; 97165; 97530; G0283 ==

== ENCOUNTER 2022-09-19 17:11 | Emergency (ER) | payer MEDICAID, SELFPAY ==
[2022-09-19 17:22] VITALS: BP 125/83; PULSE 129; RESP 18; TEMP 37.3; O2SAT 95; BMI 32.3
[2022-09-19 17:30] VITALS: BP 125/83; PULSE 129; RESP 18; TEMP 37; O2SAT 96; BMI 28.7
--- NOTE | 2022-09-19 17:44 | EXP.UTC ---
Discharge Plan Disposition Patient Disposition: Home, Self-Care Condition: Good Prescriptions Prescriptions: New doxycycline hyclate 100 mg capsule 100 mg PO BID Qty: 20 0RF methylprednisolone [Medrol (Robinson)] 4 mg tablets,dose pack 4 mg PO DIRECTED 6 Days Qty: 6 0RF Rx Instructions: 4 mg orally ;Medrol dose taper robinson No Action amlodipine [Norvasc] 5 mg tablet 5 mg PO DAILY Qty: 30 2RF lisinopril 40 mg tablet 40 mg PO DAILY Qty: 30 2RF fluoxetine 40 mg capsule 40 mg PO BID Label Comments: TAKE 1 CAPSULE BY MOUTH ONCE DAILY oxcarbazepine [Trileptal] 600 mg tablet 600 mg PO BID Vraylar 1.5 mg capsule 1.5 mg PO DAILY quetiapine [Seroquel] 25 mg tablet 25 mg PO DAILY Qty: 30 2RF omeprazole 20 mg capsule,delayed release(DR/EC) See Rx Instructions .ROUTE .COMPLEX Qty: 90 0RF Dose Instruction: Take 1 capsule by mouth once daily Rx Instructions: Take 1 capsule by mouth once daily (DME) Blood Glucose Test Strip See Rx Instructions MISCELLANEOUS Rx Instructions: Test sugar twice daily or as directed aspirin 81 mg tablet,delayed release (DR/EC) 81 mg PO DAILY Rx Instructions: Take 1 tablet by mouth once daily (DME) blood-glucose meter [Blood Glucose Monitoring] Kit See Rx Instructions MISCELLANEOUS Rx Instructions: As directed (DME) lancets [OneTouch Delica Plus Lancet] 33 gauge misc See Rx Instructions MISCELLANEOUS Rx Instructions: Test sugar twice daily or as directed loratadine 10 mg PO DAILY Rx Instructions: Take 1 tablet by mouth once daily morphine 15 mg tablet extended release 15 mg PO BID Referrals Follow up/Referrals: Brian Morris APRN [Primary Care Provider] - See instructions Clinical Impressions Clinical Impression: Acute maxillary sinusitis Qualifiers: Recurrence: not specified as recurrent Qualified Code(s): J01.00 - Acute maxillary sinusitis, unspecified Instructions Patient Instructions: DI for Sinusitis, Sinus Headache Discharge ED Provider: Stephanie High [facility] General Stated complaint: possible sinus infection/ face swollen Time Seen by Provider: 09/19/22 17:44 Description of Symptoms (Recalled from Triage Doc. by RN): c/o left face swelling that started this morning and has moved into the right side of his face, some jaw pain. [ End ] HEENT Symptoms (Recalled from RN notes): No Resp Symptoms (Recalled from RN notes): No Skin Symptoms (Recalled from RN notes): No MS Symptoms (Recalled from RN notes): Yes Functional Status (Recalled from RN notes): wnl History of Present Illness Provider Complaint: Pt relates that he has had some sinus issues for the past couple of days and noticed swelling on the left side of his face this morning and then moved to include the right side of his face as the day went on. He reports that he has been coughing up neon green mucous. Related Data Home Medications Medication Instructions Recorded Confirmed morphine 15 mg tablet,extended 15 mg PO BID knee 01/26/20 09/10/22 release fluoxetine 40 mg capsule 40 mg PO BID Depression 10/10/20 09/10/22 aspirin 81 mg tablet,delayed 81 mg PO DAILY heart health 02/04/22 09/10/22 release blood sugar diagnostic (Blood 02/04/22 09/10/22 Glucose Test strips) blood-glucose meter (Blood Glucose 02/04/22 09/10/22 Monitoring kit) lancets 33 gauge (OneTouch Delica 02/04/22 09/10/22 Plus Lancet) loratadine 10 mg PO DAILY allergies 02/04/22 09/10/22 cariprazine 1.5 mg capsule 1.5 mg PO DAILY 07/29/22 09/10/22 (Vraylar) oxcarbazepine 600 mg tablet 600 mg PO BID 07/29/22 09/10/22 (Trileptal) Previous Rx's Medication Instructions Recorded omeprazole 20 mg capsule,delayed See Rx Instructions .Route 06/15/22 release .COMPLEX #90 caps quetiapine 25 mg tablet (Seroquel) 25 mg PO DAILY #30 tabs 07/29/22 amlodipine 5 mg tablet (Norvas
[2022-09-19 18:00] VITALS: BP 125/83; PULSE 129; RESP 18; TEMP 37; O2SAT 96
== END 2022-09-19 18:02 | disposition home or self-care (01) ==
LOC: ER 17:22 → UTC 17:26
PROVIDERS: Emergency Provider Nurse Practitioner Family; PCP Nurse Practitioner Family
DX: J01.00 Acute maxillary sinusitis, unspecified (principal); Z87.891 Personal history of nicotine dependence
CPT/HCPCS: 99204; 99212; G0463

== ENCOUNTER → 2022-09-23 07:52 | Outpatient (CLI) | payer MEDICAID, SELFPAY ==
--- NOTE | 2022-09-23 07:57 | CA_ITS ---
FINAL REPORT TECHNIQUE: Grayscale, color Doppler and duplex Doppler ultrasound of the kidneys, aorta and renal arteries was performed. Multiple velocities were measured. 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 No evidence of hydronephrosis or mass. Right intrarenal RI: .55 Right renal artery velocity: 238 cm/sec. There are increased velocities but the aorta is 216 cm/sec which may be due to hypertension. Right RAR (Renal artery-Aortic Ratio): 1.1 The left kidney is not visualized. IMPRESSION: No evidence of right renal artery stenosis. CT angiogram or postcontrast MR angiogram would be more sensitive for evaluation of possible renal artery stenosis. Reviewed, Interpreted and Dictated by Cassius Andrade III, MD Transcribed by Heaven Hunt Authenticated and [facility]
--- NOTE | 2022-09-23 08:51 | US_ITS ---
FINAL REPORT TECHNIQUE: Ultrasound images of the kidneys were obtained. CLINICAL HISTORY: I10 - Essential (primary) hypertension FINDINGS: US RETROPERITONEAL The right kidney measures 11.4 cm in length. There is a 7 mm right renal cyst. The left kidney is surgically absent. The spleen measures 13 mm which is borderline enlarged. Incidental note is made of fatty infiltrated liver. IMPRESSION: 7 mm right renal cyst. Left nephrectomy. Borderline splenomegaly and incidental note of fatty liver. Reviewed, Interpreted and Dictated by Cassius Andrade III, MD Transcribed by Kavita Dill Authenticated and [facility]
== END ==
PROVIDERS: PCP Nurse Practitioner Family; Visit Provider Nurse Practitioner
DX: I10 Essential (primary) hypertension (principal)
CPT/HCPCS: 76770; 93306; 93976

== ENCOUNTER → 2023-01-21 09:45 | Outpatient (CLI) | payer MEDICAID, SELFPAY ==
[2023-01-21 11:28] LABS: Ferritin 154 ng/ml (17.9-464)
== END ==
PROVIDERS: PCP Nurse Practitioner Family; Visit Provider Nurse Practitioner Family
DX: E83.10 Disorder of iron metabolism, unspecified (principal); G25.81 Restless legs syndrome
CPT/HCPCS: 36415; 82728

== ENCOUNTER → 2023-02-15 15:20 | Outpatient (CLI) | payer MEDICAID, SELFPAY ==
[2023-02-15 15:28] LABS: Microscopic, Urine URINE MICROSCOPIC (MICROSCOPIC)
[2023-02-15 16:10] LABS: Creatinine,Urine Random 105 mg/dL (Not Estab.)
[2023-02-15 16:23] LABS: Appearance,Urine CLEAR (Clear); Bilirubin,Urine Negative (Negative); Blood, Urine Negative (Negative); Color,Urine YELLOW (Yellow); Glucose,Urine (UA) Negative (Negative); Ketones,Urine Negative (Negative); Leukocyte Esterase,Urine Negative (Negative); Nitrate,Urine Negative (Negative); PH,Urine 6.5 (5.0-8.5); Protein,Urine 2+ (Negative); Specific Gravity, Urine 1.025 (1.005-1.030); Urobilinogen,Urine 0.2 EU/dl (0.2)
[2023-02-15 16:26] LABS: Hematocrit 47.3 % (42.0-52.0); Hemoglobin 15.4 g/dL (14.1-18.0); Mean Corpuscular HGB Conc 32.5 g/dL (31.8-35.4); Mean Corpuscular Hemoglobin 28.5 pg (27.0-31.2); Mean Corpuscular Volume 87.6 fl (80-94); Platelet Count 297 K/mm3 (142-424); Red Cell Distribution Width 13.5 % (11.5-17.5); White Blood Count 9.1 K/mm3 (4.8-10.8)
[2023-02-15 16:28] LABS: Squamous Epithelial Cell,Urine Occasional #/hpf (0-5); WBC,Urine Occasional #/hpf (0-3)
[2023-02-15 17:25] LABS: Albumin Level 4.6 g/dl (3.5-5.0); Anion Gap 15.6 mEq/L (5-15); Blood Urea Nitrogen 21 mg/dl (9-20); Calcium 9.7 mg/dl (8.4-10.2); Carbon Dioxide 26 mmol/L (22.0-30.0); Chloride 103 mmol/L (98-107); Estimated Glomerular Filt Rate 79 ml/min (>60); GFR (African American) 96 ML/MIN (>60); Glucose 122 mg/dl (74-100); Phosphorous 3.8 mg/dl (2.5-4.5); Potassium 4.6 mmoL/L (3.5-5.1); Sodium 140 mmol/L (136-145)
== END ==
PROVIDERS: PCP Nurse Practitioner Family; Visit Provider Internal Medicine Nephrology
DX: N18.1 Chronic kidney disease, stage 1 (principal); E11.29 Type 2 diabetes mellitus with other diabetic kidney complication; R80.9 Proteinuria, unspecified; Z79.899 Other long term (current) drug therapy
CPT/HCPCS: 36415; 80069; 81001; 82570; 84155; 85014; 85018; 85048; 85049

== ENCOUNTER 2023-02-23 14:00 | Outpatient (RCR) | payer MEDICAID, SELFPAY | END 2023-02-23 14:05 | disposition home or self-care (01) | LOC: OT 14:00 | PROVIDERS: PCP Nurse Practitioner Family; Visit Provider Orthopaedic Surgery | DX: M75.102 Unspecified rotator cuff tear or rupture of left shoulder, not specified as traumatic (principal); Z98.890 Other specified postprocedural states | CPT/HCPCS: 97010; 97014; 97110; 97140; 97164; 97165; 97530; G0283 ==

== ENCOUNTER → 2023-05-05 11:14 | Outpatient (CLI) | payer MEDICAID, SELFPAY ==
--- NOTE | 2023-05-05 11:15 | CT_ITS ---
FINAL REPORT TECHNIQUE: Axial CT images were performed through the head. Coronal reformatted images were submitted. This study was performed with techniques to keep radiation doses as low as reasonably achievable (ALARA). Individualized dose reduction techniques using automated exposure control or adjustment of mA and/or kV according to the patient's size were employed. CLINICAL HISTORY: seizure protocol FINDINGS: The ventricles are normal in size. There is no evidence of hemorrhage. There is no mass or edema identified. There is no abnormal extra-axial fluid seen. The sinuses are well aerated. IMPRESSION: No acute intracranial process. MRI could better evaluate structural abnormalities such as mesial temporal sclerosis. Reviewed, Interpreted and Dictated by Aayan Gonzáles MD Transcribed by Heaven Hunt Authenticated and [facility]
== END ==
PROVIDERS: PCP Nurse Practitioner Family; Visit Provider Nurse Practitioner Family
DX: H51.9 Unspecified disorder of binocular movement (principal)
CPT/HCPCS: 70450

== ENCOUNTER 2023-05-08 21:41 | Emergency (ER) | payer MEDICAID, SELFPAY ==
[2023-05-08 21:43] VITALS: BP 176/112; PULSE 86; RESP 20; TEMP 36.6; O2SAT 97; BMI 35.5
--- NOTE | 2023-05-08 22:26 | HMH.EDGENADL ---
Discharge Plan Disposition Patient Disposition: Home, Self-Care Prescriptions Prescriptions: No Action lisinopril 40 mg tablet 40 mg PO DAILY Qty: 30 2RF fluoxetine 40 mg capsule 40 mg PO BID Patient Comments: TAKE 1 CAPSULE BY MOUTH ONCE DAILY morphine 15 mg tablet extended release 15 mg PO ONCE Vraylar 4.5 mg capsule 4.5 mg PO DAILY Patient Comments: TAKE 1 CAPSULE BY MOUTH ONCE DAILY quetiapine [Seroquel] 100 mg tablet 200 mg PO DAILY Qty: 180 1RF naloxone 4 mg/actuation spray,non-aerosol intranasal Horizant 300 mg tablet extended release 300 mg PO DAILY Qty: 30 2RF ondansetron 4 mg tablet,disintegrating 4 mg PO Q8H PRN (Reason: nausea and vomiting) Qty: 30 0RF metoprolol succinate 25 mg tablet extended release 24 hr See Rx Instructions .ROUTE .COMPLEX Qty: 90 2RF Dose Instruction: Take 1 tablet by mouth once daily Rx Instructions: Take 1 tablet by mouth once daily omeprazole 20 mg capsule,delayed release(DR/EC) See Rx Instructions .ROUTE .COMPLEX Qty: 90 0RF Dose Instruction: Take 1 capsule by mouth once daily Rx Instructions: Take 1 capsule by mouth once daily amlodipine 5 mg tablet See Rx Instructions .ROUTE .COMPLEX Qty: 90 0RF Dose Instruction: Take 1 tablet by mouth once daily Rx Instructions: Take 1 tablet by mouth once daily (DME) Blood Glucose Test Strip See Rx Instructions MISCELLANEOUS Rx Instructions: Test sugar twice daily or as directed (DME) blood-glucose meter [Blood Glucose Monitoring] Kit See Rx Instructions MISCELLANEOUS Rx Instructions: As directed (DME) lancets [OneTouch Delica Plus Lancet] 33 gauge misc See Rx Instructions MISCELLANEOUS Rx Instructions: Test sugar twice daily or as directed loratadine 10 mg PO DAILY Rx Instructions: Take 1 tablet by mouth once daily Referrals Follow up/Referrals: Brian Morris APRN [Primary Care Provider] - See instructions Activity Restrictions/Add. Instructions Additional Instructions/Restrictions: The Steri-Strip and Dermabond apparatus will fall off your hand in 7 to 10 days. If you notice any spreading redness or pus coming from wound please seek reevaluation. Clinical Impressions Clinical Impression: Laceration of hand, left Instructions Patient Instructions: DI for Laceration Repair Discharge ED Provider: Sylvie Flores General Adult HPI General Chief complaint: Wound/Laceration Stated complaint: AO12/@2120 LT hand lac Time Seen by Provider: 05/08/23 22:19 Mode of Arrival: Ambulatory Source of Information: Patient Limitations: No Limitations Description of Symptoms (Recalled from ER Triage Doc. by RN): pt was cutting something loose with his pocket knife and cut into left palm between thumb and index finger. edges are approx and and bleeding is controlled History of Present Illness HPI narrative: Patient is a 52-year-old male presenting today with a laceration over the palmar aspect of his left hand. States that he was fiddling with a pocket knife and accidentally cut his hand. States that he had a difficult time controlling the bleeding which is why came to the emergency department. Is not on any anticoagulants and states that the wound was cleaned prior to arrival. Unknown from a tetanus standpoint but his vaccination status is. Related Data Home Medications Medication Instructions Recorded Confirmed fluoxetine 40 mg capsule 40 mg PO BID Depression 10/10/20 04/14/23 blood sugar diagnostic (Blood 02/04/22 04/14/23 Glucose Test strips) blood-glucose meter (Blood Glucose 02/04/22 04/14/23 Monitoring kit) lancets 33 gauge (OneTouch Delica 02/04/22 04/14/23 Plus Lancet) loratadine 10 mg PO DAILY allergies 02/04/22 04/14/23 cariprazine 4.5 mg capsule 4.5 mg PO DAILY 01/21/23 04/14/23 (Vraylar) morphine 15 mg tablet,extended 15 mg PO ON
[2023-05-08 22:35] VITALS: BP 168/105; PULSE 70; RESP 20; TEMP 36.9; O2SAT 99
== END 2023-05-08 22:37 | disposition home or self-care (01) ==
PROVIDERS: Emergency Provider Student in an Organized Health Care Education/Training Program; PCP Nurse Practitioner Family
DX: S61.412A Laceration without foreign body of left hand, initial encounter (principal); W26.0XXA Contact with knife, initial encounter; I10 Essential (primary) hypertension
CPT/HCPCS: 12001; 90471; 90715; 96372; 99282; 99283

== ENCOUNTER → 2023-06-02 11:14 | Outpatient (CLI) | payer MEDICAID, SELFPAY ==
[2023-06-02 12:38] LABS: Thyroid Stimulating Hormone 0.96 uIU/mL (0.465-4.68)
[2023-06-02 13:13] LABS: Vitamin B12 657 pg/mL (239-931)
== END ==
LOC: LAB 11:15
PROVIDERS: PCP Nurse Practitioner Family; Visit Provider Nurse Practitioner Family
DX: I10 Essential (primary) hypertension (principal); G47.33 Obstructive sleep apnea (adult) (pediatric); H51.9 Unspecified disorder of binocular movement; E66.9 Obesity, unspecified; Z68.35 Body mass index [BMI] 35.0-35.9, adult
CPT/HCPCS: 36415; 82607; 82746; 84443

== ENCOUNTER 2023-09-06 16:23 | Outpatient (CLI) | payer MEDICAID, SELFPAY ==
[2023-09-06 16:29] LABS: Microscopic, Urine URINE MICROSCOPIC (MICROSCOPIC)
[2023-09-06 16:43] LABS: Hematocrit 43.4 % (42.0-52.0); Hemoglobin 14.3 g/dL (14.1-18.0); Mean Corpuscular Volume 91.1 fl (80-94); Platelet Count 352 K/mm3 (142-424); Red Blood Count 4.77 M/mm3 (4.60-6.20); Red Cell Distribution Width 13.6 % (11.5-17.5); White Blood Count 10.5 K/mm3 (4.8-10.8)
[2023-09-06 16:58] LABS: Appearance,Urine CLEAR (Clear); Bilirubin,Urine Negative (Negative); Blood, Urine Negative (Negative); Color,Urine YELLOW (Yellow); Glucose,Urine (UA) 3+ (Negative); Ketones,Urine Negative (Negative); Leukocyte Esterase,Urine Negative (Negative); Nitrate,Urine Negative (Negative); PH,Urine 5.5 (5.0-8.5); Protein,Urine TRACE (Negative); Specific Gravity, Urine 1.025 (1.005-1.030); Urobilinogen,Urine 0.2 EU/dl (0.2)
[2023-09-06 17:08] LABS: Creatinine,Urine Random 116 mg/dL (Not Estab.)
[2023-09-06 17:10] LABS: Albumin Level 4.5 g/dl (3.5-5.0); Anion Gap 13.6 mEq/L (5-15); Blood Urea Nitrogen 21 mg/dl (9-20); Calcium 9.9 mg/dl (8.4-10.2); Carbon Dioxide 22 mmol/L (22.0-30.0); Chloride 104 mmol/L (98-107); Estimated Glomerular Filt Rate 58 ml/min (>60); GFR (African American) 71 ML/MIN (>60); Glucose 319 mg/dl (74-100); Phosphorous 4.3 mg/dl (2.5-4.5); Potassium 4.6 mmoL/L (3.5-5.1); Sodium 135 mmol/L (136-145)
[2023-09-06 17:14] LABS: Squamous Epithelial Cell,Urine Occasional #/hpf (0-5)
== END 2023-09-06 23:59 ==
LOC: LAB 16:24
PROVIDERS: PCP Nurse Practitioner Family; Visit Provider Internal Medicine Nephrology
DX: N18.1 Chronic kidney disease, stage 1 (principal); Z90.5 Acquired absence of kidney
CPT/HCPCS: 36415; 80069; 81001; 82570; 84156; 85014; 85018; 85048; 85049

== ENCOUNTER 2023-09-09 13:05 | Outpatient (POV) | payer MEDICAID, SELFPAY | END 2023-09-09 23:59 | disposition home or self-care (01) | LOC: SC 13:05 | PROVIDERS: Visit Provider Internal Medicine Nephrology | DX: Z00.00 Encounter for general adult medical examination without abnormal findings (principal) ==

== ENCOUNTER 2023-10-12 11:57 | Outpatient (CLI) | payer MEDICAID, SELFPAY ==
[2023-10-12 13:07] VITALS: BMI 36.6
== END 2023-10-12 23:59 | disposition home or self-care (01) ==
LOC: DIETICIAN 11:57
PROVIDERS: PCP Nurse Practitioner Family; Visit Provider Nurse Practitioner Family
DX: E11.9 Type 2 diabetes mellitus without complications (principal); Z71.3 Dietary counseling and surveillance
CPT/HCPCS: 97802

== ENCOUNTER 2023-11-10 10:01 | Outpatient (CLI) | payer MEDICAID, SELFPAY ==
[2023-11-10 10:40] VITALS: PULSE 80; PULSE 86
[2023-11-10] MEDS: ALBUTEROL 0.083% 2.5 MG/3 ML NEB IH (10:40)
== END 2023-11-10 23:59 | disposition home or self-care (01) ==
LOC: RT 10:01
PROVIDERS: PCP Nurse Practitioner Family; Visit Provider Nurse Practitioner Family
DX: R06.02 Shortness of breath (principal); Z87.891 Personal history of nicotine dependence
CPT/HCPCS: 94060; 94618; 94640; 94726; 94729

== ENCOUNTER 2024-01-18 10:39 | Outpatient (CLI) | payer MEDICAID, SELFPAY ==
--- NOTE | 2024-01-18 10:42 | XR_ITS ---
FINAL REPORT CLINICAL HISTORY: R Knee Pain COMPARISON: None FINDINGS: RIGHT KNEE: 4 views of the right knee obtained. There is a patellofemoral compartment arthroplasty present. There is no acute fracture or dislocation. Mild degenerative change is present. A small joint effusion is noted. . There is no soft tissue abnormality. IMPRESSION: Patellofemoral compartment arthroplasty. Mild degenerative change and small joint effusion without acute bony abnormality. Reviewed, Interpreted and Dictated by Cassius Andrade III, MD Transcribed by Awilda Cota Authenticated and [facility]
== END 2024-01-18 23:59 | disposition home or self-care (01) ==
PROVIDERS: PCP Nurse Practitioner Family; Visit Provider Nurse Practitioner Family
DX: M25.561 Pain in right knee (principal); G89.29 Other chronic pain
CPT/HCPCS: 73564

== ENCOUNTER 2024-02-23 15:35 | Outpatient (CLI) | payer MEDICAID, SELFPAY ==
--- NOTE | 2024-02-23 15:42 | XR_ITS ---
FINAL REPORT CLINICAL HISTORY: low pain x 5 days..no trauma FINDINGS: LUMBAR SPINE: AP and lateral views of the lumbar spine were obtained. There is no prior exam for comparison. There is no acute fracture or malalignment. A spinal stimulator device is present posterior to the sacrum with leads at the L3 and L4 levels. Vertebral body height is preserved. Disc space height is preserved. No acute paraspinal abnormality. IMPRESSION: Stimulator device is present as described, without acute bony abnormality identified. Reviewed, Interpreted and Dictated by Ayaan Gonzáles MD Transcribed by Awilda Cota Authenticated and [facility]
--- NOTE | 2024-02-23 15:46 | XR_ITS ---
FINAL REPORT CLINICAL HISTORY: NEW KNEE PAIN COMPARISON: 01/18/2024 FINDINGS: 3 views of the right knee were obtained. There is no acute fracture or dislocation. There is a prosthesis at the patellofemoral joint. The medial and lateral compartment joint spaces are preserved. There is no acute soft tissue abnormality. IMPRESSION: No acute abnormality identified. Reviewed, Interpreted and Dictated by Ayaan Gonzáles MD Transcribed by Ana Flores Authenticated and [facility]
== END 2024-02-23 23:59 | disposition home or self-care (01) ==
PROVIDERS: PCP Nurse Practitioner Family; Visit Provider Anesthesiology
DX: M25.561 Pain in right knee (principal); G89.29 Other chronic pain
CPT/HCPCS: 72100; 73562

== ENCOUNTER 2024-05-26 09:19 | Outpatient (CLI) | payer MEDICAID, SELFPAY ==
[2024-05-26 09:44] LABS: Hematocrit 44.7 % (42.0-52.0); Hemoglobin 14.6 g/dL (14.1-18.0); Lymphocytes % 17.3 % (10-50); Mean Corpuscular HGB Conc 32.7 g/dL (31.8-35.4); Mean Corpuscular Hemoglobin 28.2 pg (27.0-31.2); Mean Corpuscular Volume 86.5 fl (80-94); Mean Platelet Volume 9.7 fl (7.4-10.4); Monocytes % 10.7 % (1.7-9.3); Neutrophils % 65.7 % (37.0-80.0); Platelet Count 255 K/mm3 (142-424); Red Blood Count 5.17 M/mm3 (4.60-6.20); Red Cell Distribution Width 12.9 % (11.5-17.5)
[2024-05-26 09:45] LABS: Basophils # 0.1 K/mm3 (0-0.2); Basophils % 1.3 % (0.1-2.0); Eosinophils # 0.2 K/mm3 (0.0-0.4); Eosinophils % 2.7 % (0.1-12.0); Lymphocytes # 1.6 K/mm3 (0.7-4.5); Neutrophils # 5.9 K/mm3 (1.8-7.8)
[2024-05-26 10:07] LABS: Chloride 105 mmol/L (98-107)
[2024-05-26 10:08] LABS: Albumin Level 4.2 g/dl (3.5-5.0); Potassium 4.9 mmoL/L (3.5-5.1); Sodium 134 mmol/L (136-145)
[2024-05-26 10:11] LABS: Anion Gap 7.9 mEq/L (5-15); Blood Urea Nitrogen 20 mg/dl (9-20); Calcium 9.6 mg/dl (8.4-10.2); Carbon Dioxide 26 mmol/L (22.0-30.0); Estimated Glomerular Filt Rate 89 ml/min (>60); GFR (African American) 108 ML/MIN (>60); Glucose 114 mg/dl (74-100); Phosphorous 3.3 mg/dl (2.5-4.5)
== END 2024-05-26 23:59 | disposition home or self-care (01) ==
PROVIDERS: PCP Nurse Practitioner Family; Visit Provider Student in an Organized Health Care Education/Training Program
DX: N28.9 Disorder of kidney and ureter, unspecified (principal)
CPT/HCPCS: 36415; 80069; 85025

== ENCOUNTER 2024-07-14 07:43 | Day surgery (SDC) | payer MEDICAID, SELFPAY ==
[2024-02-10 10:16] VITALS: BMI 32.1
[2024-07-14] MEDS: LACTATED RINGERS 1000ML 1,000 ML 50 ML IV (07:45)
[2024-07-14 08:05] VITALS: BP 156/110; PULSE 78; RESP 19; TEMP 36.3; O2SAT 99
[2024-07-14 08:12] LABS: POC Glucose,Bedside 158 (70-110)
[2024-07-14 08:23] VITALS: O2SAT 99
--- NOTE | 2024-07-14 08:45 | HMH.SCOPE ---
Procedure: Date: 07/14/24 Patient Date of :: 1970 Procedure Performed:: Colonoscopy Indications:: Patient is a 53-year-old male who presents for initial screening colonoscopy Performing Provider:: Cassius Vega MD Referring Provider:: Brian Morris Sedation:: MAC sedation Procedure:: Patient history was obtained and appropriate physical examination was performed. Patient's medications and allergies were reviewed. Informed consent was obtained after explaining the benefits, alternatives, and risks of the procedure including, but not limited to, bleeding, perforation, missed lesions, and adverse reaction to anesthesia medications. Patient was transported to endoscopy procedure room. Patient was connected to monitoring devices. Throughout the procedure the patient's blood pressure, pulse, and oxygen saturations were monitored continuously. Patient identification and planned procedure were verified by the staff. Patient was positioned in lateral decubitus position. Digital anorectal exam was performed. Variable stiffness Olympus colonoscope was inserted and advanced under direct visualization to the cecum. There were no obstructing polyps or masses obviously noted. Adequacy of the colonic preparation was noted. The colonoscope was then slowly withdrawn while carefully examining the color, texture, anatomy, and integrity of the mucosoa circumferentially. Within the rectum retroflexion was performed. Colonoscope was then withdrawn. Impression: Colonoscope was inserted and pasty particulate stool was encountered. Colonoscope was slowly advanced and stool became somewhat thicker. It was ultimately able to be advanced to the cecum. However, prep was quite poor. There was undigested vegetable matter and opaque thick pasty stool. Attempt was made at clearance with high-volume irrigation but due to the undigested vegetable matter this was unable to be cleared. Colonoscope was withdrawn. There was noted to be some possible small sigmoid polyps but these were unable to be removed due to becoming immediately obscured with opaque liquid stool. . Findings:: Extremely poor prep with opaque thick stool and undigested vegetable matter Possible sigmoid polyps, not removed Recommendations:: Repeat colonoscopy with multi day maximum prep and actual low residue diet Complications:: None immediately apparent Estimated blood obtained (mL): 0 Colonoscopy Component Colonoscopy Component Was a colonoscopy performed during today's procedure?: Yes Recommended follow up colonoscopy of at least 10 years?: No If no, follow up colonoscopy recommended in ___ years?: See above Reason for not recommending >/= 10 yr follow-up interval?: See above
[2024-07-14 08:47] VITALS: BP 105/76; PULSE 92; RESP 18; TEMP 36.3; O2SAT 97
--- NOTE | 2024-07-14 08:56 | P.PNANES_ITS ---
[facility] Disclaimer: The information contained in this section may have been updated after the patient was seen, as this information can be updated by other users. Medical History History of trigger finger Neurostimulator device in situ Kidney function abnormal Acute insomnia Family history of asthma Allergic rhinitis KARLEY (obstructive sleep apnea) Diabetes HLD (hyperlipidemia) BMI 33.0-33.9,adult Right knee pain Hypertension Surgical History History of kidney donation History of carpal tunnel release of both wrists History of partial knee replacement Hx of cholecystectomy Hx of repair of right rotator cuff Family History Other Cancer Coronary artery disease Diabetes Heart attack Stroke Substance abuse Social History (Updated 07/14/24 @ 08:01 by Lizett Austin RN) Smoking Status: Former smoker second hand exposure: No alcohol intake: never substance use type: former substance user and marijuana current occupational status: employed and disabled Travel in the last 8 weeks: None household members: spouse and family housing: house marital status: caffeine: Yes [facility] Anesthesia Checklist Patient Identification Patient Identification: Arm Band and Verbal (Name & ) Structural Data Admitted From: Home Planned Operative Procedure/s: colonoscopy Consent for Planned Operative Procedure(s) Verified: Yes Verified Documents: Surgical Consent NPO Status Verified Time NPO: 00:00 Additional verifications Fingerstick Blood Glucose: 75 Patient : No Anesthesia Reactions: No Cardiovascular Assessment Heart Sounds: S1 & S2 Pulse Strength: Baseline Pulse Rhythm: Regular Peripheral Edema: No Airway Assessment Mallampati Score:: Class I C-Spine Mobility Assessed: Yes TMJ Mobility Assessed: Yes Dentition: Edentulous Neurological Assessment Level of Consciousness: Awake and Alert Hx Seizures: No Anesthesia Plan Anesthesia Risk discussed: Yes ASA Class: III Anesthesia Type: MAC
[2024-07-14 08:57] VITALS: BP 125/70; PULSE 94; RESP 16; O2SAT 97
[2024-07-14 09:07] VITALS: BP 123/73; PULSE 91; RESP 18; O2SAT 98
[2024-07-14 09:17] VITALS: BP 146/74; PULSE 89; RESP 18; O2SAT 98
== END 2024-07-14 09:17 | disposition home or self-care (01) ==
PROVIDERS: PCP Nurse Practitioner Family; Visit Provider Surgery
PROC: 0DJD8ZZ Inspection of Lower Intestinal Tract, Via Natural or Artificial Opening Endoscopic (ICD-10-PCS; CPT 45378; principal; 2024-07-14 08:35)
DX: Z12.11 Encounter for screening for malignant neoplasm of colon (principal)
CPT/HCPCS: 45378; 82962; J0360; J7120

== ENCOUNTER 2024-09-11 08:58 | Outpatient (CLI) | payer MEDICAID, SELFPAY ==
--- NOTE | 2024-09-11 09:04 | XR_ITS ---
FINAL REPORT TECHNIQUE: Left hand 3 views CLINICAL HISTORY: anterior left hand pain near 1st digit COMPARISON: None FINDINGS: LEFT HAND: 3 images of the left hand were obtained. There is no evidence of fracture or dislocation. Mild hypertrophic change of the basilar joint is present. There is no soft tissue abnormality identified. IMPRESSION: Mild hypertrophic change of the basilar joint, without acute bony abnormality. Reviewed, Interpreted and Dictated by Ayaan Gonzáles MD Transcribed by Awilda Cota Authenticated and [facility]
== END 2024-09-11 23:59 | disposition home or self-care (01) ==
LOC: RAD 08:59
PROVIDERS: PCP Nurse Practitioner Family; Visit Provider Physician Assistant Surgical
DX: M79.642 Pain in left hand (principal)
CPT/HCPCS: 73130

== ENCOUNTER 2024-09-14 08:54 | Outpatient (CLI) | payer MEDICAID, SELFPAY ==
[2024-09-14 15:48] LABS: Adenovirus F 40/41, stool Not Detected (NotDetected); Astrovirus Not Detected (NotDetected); Campylobacter Not Detected (NotDetected); Clostridium Difficile A/B, PCR Not Detected (NotDetected); Cryptosporidium Not Detected (NotDetected); Cyclospora Cayetanesis Not Detected (NotDetected); Entamoeba histolytica Not Detected (NotDetected); Enteroaggregative E coli Not Detected (NotDetected); Enteropathogenic E coli Not Detected (NotDetected); Enterotoxigenic E coli Not Detected (NotDetected); Giardia lamblia Not Detected (NotDetected); Norovirus Not Detected (NotDetected); Plesimonas Shigalloides, PCR Not Detected (NotDetected); Rotavirus A Not Detected (NotDetected); Salmonella, PCR Not Detected (NotDetected); Sapovirus Not Detected (NotDetected); Shiga-like toxin E coli Not Detected (NotDetected); Shigella Enterovasive E coli Not Detected (NotDetected); Vibrio Cholerae Not Detected (NotDetected); Vibrio, PCR Not Detected (NotDetected); Yersinia Entercolitica, PCR Not Detected (NotDetected)
== END 2024-09-14 23:59 | disposition home or self-care (01) ==
LOC: LAB 08:55
PROVIDERS: PCP Nurse Practitioner Family; Visit Provider Nurse Practitioner Family
DX: R19.7 Diarrhea, unspecified (principal)
CPT/HCPCS: 87506

== ENCOUNTER 2024-09-22 06:33 | Day surgery (SDC) | payer MEDICAID, SELFPAY ==
[2024-09-19 10:46] VITALS: BMI 35.6
[2024-09-22] MEDS: LACTATED RINGERS 1000ML 1,000 ML 50 ML IV (06:52)
[2024-09-22 07:01] VITALS: BP 159/96; PULSE 86; RESP 18; TEMP 36.5; O2SAT 97
--- NOTE | 2024-09-22 07:27 | HMH.SCOPE ---
Procedure: Date: 09/22/24 Patient Date of :: 1970 Procedure Performed:: Total colonoscopy with multiple Indications:: Patient is a 53-year-old male with history of diabetes, obstructive sleep apnea, hypertension, on trazodone, oxycodone, morphine, semaglutide. He presents for screening colonoscopy. He had presented for initial screening colonoscopy in July and colonic preparation was poor. There was noted to be a possible sigmoid polyp but this was immediately obscured at the time of his attempted colonoscopy. Performing Provider:: Cassius Vega MD Referring Provider:: Brian Morris Sedation:: MAC sedation Procedure:: Patient history was obtained and appropriate physical examination was performed. Patient's medications and allergies were reviewed. Informed consent was obtained after explaining the benefits, alternatives, and risks of the procedure including, but not limited to, bleeding, perforation, missed lesions, and adverse reaction to anesthesia medications. Patient was transported to endoscopy procedure room. Patient was connected to monitoring devices. Throughout the procedure the patient's blood pressure, pulse, and oxygen saturations were monitored continuously. Patient identification and planned procedure were verified by the staff. Patient was positioned in lateral decubitus position. Digital anorectal exam was performed. Variable stiffness Olympus colonoscope was inserted and advanced under direct visualization to the cecum. Adequacy of the colonic preparation was noted. The colonoscope was then slowly withdrawn while carefully examining the color, texture, anatomy, and integrity of the mucosoa circumferentially. Within the rectum retroflexion was performed. Colonoscope was then withdrawn. Impression: Colonic preparation was good. Within the cecum there were a couple of polyps which appeared small and adenomatous and removed in their entirety with cold biopsy forceps. In the ascending colon there was a small adenomatous appearing polyp removed with cold snare. In the sigmoid colon there was an adenomatous polyp removed with cold snare. In the distal sigmoid colon there were a couple polyps 1 of which appeared small and adenomatous and one appeared hyperplastic removed with cold snare. In the rectosigmoid region there multiple hyperplastic appearing polyps. Larger of these were sampled with biopsy forceps. . Findings:: Polyps as noted above Recommendations:: Repeat colonoscopy pending pathology. Likely 2 or 3 years. If any of the rectosigmoid polyps are adenomatous may consider 1 to 2 years Complications:: None immediately apparent Estimated blood obtained (mL): 1 Colonoscopy Component Colonoscopy Component Was a colonoscopy performed during today's procedure?: Yes Recommended follow up colonoscopy of at least 10 years?: No If no, follow up colonoscopy recommended in ___ years?: See above Reason for not recommending >/= 10 yr follow-up interval?: See above
--- NOTE | 2024-09-22 07:29 | P.PNANES_ITS ---
[facility] Disclaimer: The information contained in this section may have been updated after the patient was seen, as this information can be updated by other users. Medical History History of trigger finger Neurostimulator device in situ Kidney function abnormal Acute insomnia Family history of asthma Allergic rhinitis KARLEY (obstructive sleep apnea) Diabetes HLD (hyperlipidemia) BMI 33.0-33.9,adult Right knee pain Hypertension Surgical History History of kidney donation History of carpal tunnel release of both wrists History of partial knee replacement Right Knee Hx of cholecystectomy Hx of repair of right rotator cuff Family History Other Cancer Coronary artery disease Diabetes Heart attack Stroke Substance abuse Social History Smoking Status: Former smoker second hand exposure: No alcohol intake: never substance use type: former substance user and marijuana current occupational status: employed and disabled Travel in the last 8 weeks: None household members: spouse and family housing: house marital status: caffeine: Yes Have you lived/traveled outside US in past 30 days?: No Contact w/someone who lives/traveled outside US past 30 days?: No Exposure to someone with infectious disease in past 14 days?: No Do you have a fever (greater than 100.4 F or 38 C)?: No Have you tested positive for COVID-19: No Exposed to someone with COVID-19 in past 14 days?: No Do you have a sore throat?: No Do you have a cough?: No Do you have any weakness?: No Do you have any diarrhea?: No Are you experiencing any unusual bleeding?: No Do you have any muscle aches/pain?: No Do you have any abdominal pain?: No Are you experiencing loss of taste or smell?: No [facility] Anesthesia Checklist Patient Identification Patient Identification: Arm Band Structural Data Admitted From: Home Planned Operative Procedure/s: Colonoscopy Consent for Planned Operative Procedure(s) Verified: Yes Verified Documents: Surgical Consent and History and Physical NPO Status Verified Time NPO: 00:00 Additional verifications Anesthesia Reactions: No Airway Assessment Mallampati Score:: Class II C-Spine Mobility Assessed: Yes TMJ Mobility Assessed: Yes Dentition: Edentulous Neurological Assessment Level of Consciousness: Awake, Alert and Appropriate Anesthesia Plan Anesthesia Risk discussed: Yes Anesthesia Plan: Verified ASA Class: II Anesthesia Type: MAC
[2024-09-22 07:34] VITALS: O2SAT 97
[2024-09-22 08:15] VITALS: BP 87/62; PULSE 80; RESP 16; TEMP 36.6; O2SAT 96
[2024-09-22 08:25] VITALS: BP 113/84; PULSE 81; RESP 16; O2SAT 93
[2024-09-22 08:34] VITALS: BP 127/84; PULSE 81; RESP 16; O2SAT 95
[2024-09-22 14:52] LABS: POC Glucose,Bedside 123 (70-110)
== END 2024-09-22 08:35 | disposition home or self-care (01) ==
PROVIDERS: PCP Nurse Practitioner Family; Visit Provider Surgery
PROC: 0DJD8ZZ Inspection of Lower Intestinal Tract, Via Natural or Artificial Opening Endoscopic (ICD-10-PCS; CPT 45380; principal; 2024-09-22 08:00)
DX: K63.5 Polyp of colon (principal); Z12.11 Encounter for screening for malignant neoplasm of colon
CPT/HCPCS: 45380; 45385; 82962; J2704; J7120

== ENCOUNTER 2024-09-22 08:53 | Outpatient (CLI) | payer MEDICAID, SELFPAY ==
[2024-09-22 09:00] LABS: Microscopic, Urine URINE MICROSCOPIC (MICROSCOPIC)
[2024-09-22 09:32] LABS: Basophils # 0.1 K/mm3 (0-0.2); Eosinophils # 0.4 Kmm3 (0.0-0.4); Eosinophils % 5.4 % (0.1-12.0); Hematocrit 42.4 % (42.0-52.0); Hemoglobin 14.1 g/dL (14.1-18.0); Lymphocytes % 30.6 % (10-50); Mean Corpuscular HGB Conc 33.3 g/dL (31.8-35.4); Mean Corpuscular Hemoglobin 28.3 pg (27.0-31.2); Mean Platelet Volume 9.5 fl (7.4-10.4); Monocytes # 0.8 K/mm3 (0.1-1.0); Neutrophils % 45.8 % (37.0-80.0); Nucleated Red Blood Cells # 0 10^3/uL; Nucleated Red Blood Cells % 0 %; Platelet Count 282 K/mm3 (142-424); Red Blood Count 4.99 M/mm3 (4.60-6.20); Red Cell Distribution Width 13.3 % (11.5-17.5); Red Cell Distribution Width-SD 40.6 fL; White Blood Count 6.5 K/mm3 (4.8-10.8)
[2024-09-22 09:35] LABS: Appearance,Urine CLEAR (Clear); Bilirubin,Urine Negative (Negative); Blood, Urine Negative (Negative); Color,Urine YELLOW (Yellow); Glucose,Urine (UA) Negative (Negative); Ketones,Urine Negative (Negative); Leukocyte Esterase,Urine Negative (Negative); Nitrate,Urine Negative (Negative); Protein,Urine Negative (Negative); Urobilinogen,Urine 0.2 EU/dl (0.2)
[2024-09-22 09:47] LABS: Creatinine,Urine Random 30 mg/dL (Not Estab.)
[2024-09-22 09:53] LABS: Blood Urea Nitrogen 10 mg/dl (9-20); Calcium 9.2 mg/dl (8.4-10.2); Carbon Dioxide 26 mmol/L (22.0-30.0); Chloride 102 mmol/L (98-107); Estimated Glomerular Filt Rate 102 ml/min (>60); GFR (African American) 123 ML/MIN (>60); Glucose 110 mg/dl (74-100); Sodium 137 mmol/L (136-145)
[2024-09-22 09:59] LABS: Bacteria,Urine Trace /lpf; Squamous Epithelial Cell,Urine Occasional #/hpf (0-5)
== END 2024-09-22 23:59 | disposition home or self-care (01) ==
LOC: LAB 08:55
PROVIDERS: PCP Nurse Practitioner Family; Visit Provider Student in an Organized Health Care Education/Training Program
DX: I12.9 Hypertensive chronic kidney disease with stage 1 through stage 4 chronic kidney disease, or unspecified chronic kidney disease (principal); N18.9 Chronic kidney disease, unspecified
CPT/HCPCS: 36415; 80069; 81001; 82043; 82570; 84156; 85025

== ENCOUNTER 2024-12-20 13:01 | Outpatient (CLI) | payer MEDICAID, SELFPAY ==
--- OUTSIDE RECORDS SUMMARY | 2024-11-07 10:00 | XMS_ITS | Encounter Summary ---
Author Organization Healthcare Address [address] [place] [address] Care Team Providers Care Factory Superintendent Name Role Phone Brian Morris APRN Primary Care Provider [phone] Reason for Visit * Reason Comments Med Refill Encounter Details Date Type Department Care Team (Late st Contact Info) Description 11/07/2024 10:00 AM EDT Office Visit [facility] Interventional Pain Medicine [address] [place] [address] Michi Skelton MD [address] [place] [address] Chronic pain of left knee (Primary Dx); Chronic use of opiate for therapeutic purpose Social History Tobacco Use Types Packs/Day Years Used Date Smoking Tobacco: Former Cigarettes Q uit: 2002 Passive Smoke Exposure: Never Smokeless Tobacco: Never Alcohol Use Standard Drinks/Week Comments Not Currently 0 (1 standard drink = 0.6 oz pure alcohol) Alcoholic Drinks/day: Stopped Drinking Alcohol PHQ-2 Answer Date Recorded Patient Health Questionnaire-2 Score 0 09/09/2023 PHQ-2A Answer Date Recorded Patient Health Questionnaire-2 Score 0 06/04/2022 Sex and Gender Information Value Date Recorded Sex Assigned at Male 01/14/2021 10:44 AM EDT Legal Sex Male 8:24 PM EDT Gender Identity Male 01/14/2021 10:44 AM EDT Sexual Orientation Straight 01/14/2021 10 :44 AM EDT documented as of this encounter Last Filed Vital Signs Vital Sign Reading Time Taken Comments Blood Pressure 135/89 11/07/2024 10:03 AM EDT Pulse 90 11/07/2024 10:03 AM EDT Temperature 36.4 C (97.6 F) 11/07/2024 10:03 AM EDT Respiratory Rate 18 11/07/2024 10:03 AM EDT Oxygen Saturation - - Inhaled Oxygen Concentration - - Weight 93.9 kg (207 lb) 11/07/2024 10:03 AM EDT Height 167.6 cm (5' 6 ) 11/07/2024 10:03 AM EDT Body Mass Index 33.41 11/07/2024 10:03 AM EDT documented in this encounter Miscellaneous Notes * Clinician Note - Ottoniel Jacobsen - 11/07/2024 10:00 AM EDT Morphine 11/07/24 0900 * Progress Notes - Kellie Leach APRN - 11/07/2024 10:00 AM EDT Images from the original note were not included. Interventional Pain Medicine Follow Up Note Subjective: Interval History: 11/07/2024 Juanjose presents today for medication follow up refill and re-evaluation of chronic right knee pain. He continues to utilize Morphine 15mg ER BID for right knee pain. Patient reports >50% pain relief and derives functional drive from utilization of Morphine. Patient is able to do his ADLs. Patient is taking adjunct CBD gummies which helps with pain as well. CBD receipts present. Patient denies any side effects including constipation, oversedation, or mood changes. Patient reports that he stores his medications in a secure location. SCS (Yo) was reprogrammed 09/07/2024 and he is reporting 30-50% relief. GPS: 44 History of Present Illness: Juanjose Borden is a 53 y.o. male presents for Chronic right knee pain s/p multiple surgeries inpast s/p right L3/L4 DRG. Other hx includes sleep apnea (uses CPAP) and HTN Pain Site: right knee Onset: years Severity: /10 Descriptors: Dull, aching Aggravating Factors: Walking, standing Relieving Factors: pain medication, DRG Associated Symptoms: None Current GPS 50 Past GPS 46 Current medication ASA Prozac Trazodone Morphine 15 mg ER BID No longer taking temazepam Previous Pain Medications NSAIDs, tylenol, voltaren gel, diclofenac tablets, compound cream Previous Non-Interventional Treatments physical therapy, > 6 weeks HEP -at present For knee Failed ice Previous Interventional Treatments DRG Right L3 and L4 08/26/22 Genicular ablations- most recent 12/30/21- marginal benefit 09/06/23: S/p Genicular artery embolization outside provider; not noticed any difference in pain at this time Review of Systems: CONSTITUTIONAL: denies fevers, chills HEENT: denies swallowing difficulties, sore throat CARDIOVASCULAR: denies chest pain, palpitations, syncope, continues to follow with PCP for BP manangement RESPIRATORY: denies shortness of breath, cough, wheezing GI: denies change in bowel habits, nausea, vomiting : denies change in bladder function, frequency, dysuria SKIN: denies rash, skin changes MSK: Per HPI NEURO: no paresthesias PSYCH: depression and anxiety managed; denies any suicidal or homicidal ideation General Physical Exam: Constitutional NAD; well nourished; conversant Head Normocephalic and atraumatic. Neck Neck supple Cardiovascular Well perfused Pulmonary/Chest Effort normal, no shortness of breath noted Neurological Alert and oriented to person, place, and time Skin Skin is warm and dry Psychiatric A & O X 4; mood/affect congruent with situation; denies suicidal ideation; no signsof impairment Musculoskeletal Exam Lower Extremity Motor Strength Right Left L2: 5/5 5/5 L3: 5/5 5/5 L4: 5/5 5/5 L5: 5/5 5/5 S1: 5/5 5/5 Knee - right Exam Right Palpation tender + Effusion - Pain with ROM with right knee Imaging: XR of the right knee from 02-24-24 shows intact patellofemoral arthoplasty with OA Assessment & Plan: Juanjose Borden is a 53 y.o. male with persistent right knee pain. We will continue a multimodaltreatment approach and involve interventional technique where indicated. He is responding favorablyto SCS (Oy with last reprogramming 09/07/2024) and oral medication maintenance (MSER). He is otherwise stable on current regimen. Questions answered to his satisfaction, verbalized understanding. Anticoagulation: ASA 81mg daily #Chronic right knee pain, Chronic worsening requiring opioid - s/p multiple right knee surgeries 9 total surgeries - (most recent was patellofemoral arthroplasty and tibial tubercle transfer) -s/p Genicular artery embolization with no noticeable pain relief -s/p Right L3 and 4 DRG implant with 30-50% improvement with pain -s/p right IA knee injection with steroid with 50% improvement - requiring to take Morphine ER 15 mg every 12 hours for pain last fill 10/17 -continue Morphine regimen #Chronic prescription opioid use -Rx Morphine ER 15mg BID #60 (2) 30 day prescriptions given today - Patient purchased CBD gummies; receipt present and will scan in chart A Controlled substance/opioid agreement: Signed 09/07/24 B Last LCMS was 03/14/24: appropriate; UDS appropriate today for opioid and THC and sent for confirmation C PDMP/TEDDY reviewed today: appropriate D As documented in the signed controlled substance/opioid agreement, the patient is aware of the risks associated with the administration of chronic opioids, including the risk of overdose and ,the risk of developing misuse, abuse, and addiction to the prescribed medications, as well as the other risks associated with chronic opioid administration Routine assessment for mental health conditions have been assessed during this visit, and the patient has been properly screened for substance use disorders (risk of developing and presence of these conditions) In addition, reports functional improvement from opioids and stores medication in safe place Susie Has Narcan for emergency use Follow up in 2 months for medication reevaluation Cosigned by Michi Skelton MD at 11/07/2024 10:29 AM EDT Associated attestation - Michi Skelton MD - 11/07/2024 10:29 AM EDT I attest to being involved in more than half the total time in patient care. documented in this encounter Plan of Treatment Upcoming Encounters Date Type Department Care Team (Late st Contact Info) Description 01/03/2025 2:40 PM EDT Office Visit [facility] Interventional Pain Medicine [facility] [place] [address] Michi Skelton MD [address] [facility] [address] [place] [address] 10/05/2025 10:40 AM EDT Office Visit [facility] [address] [place] [address] Kaiden Geiger MD [address] [place] [address] documented as of this encounter Visit Diagnoses Diagnosis Chronic pain of left knee- Primary Chronic use of opiate for therapeutic purpose documented in this encounter Additional Health Concerns Infection Onset Date Last Indicated Resolved Time MRSA 07/15/2022 07/15/2022 Assessment Noted Time A fall risk assessment has been complete d for the patient 11/07/2024 10:03 AM EDT A Body Mass Index follow-up plan has been documented for the patient 11/07/2024 11:05 AM EDT documented as of this encounter Care Teams Factory Superintendent Relationship Specialty Start Date End Date Brian Morris APRN [address] [place] [address] PCP - General 09/23/22 documented as of this encounter
--- NOTE | 2024-12-20 13:04 | XR_ITS ---
FINAL REPORT CLINICAL HISTORY: right knee pain COMPARISON: 02/23/2024 FINDINGS: Three views of the right knee were obtained. There is no acute fracture or dislocation. There are surgical changes from patellofemoral arthroplasty. Mild degenerative changes of the tibial fibular joint are noted. There is no joint effusion. There is no acute soft tissue abnormality. IMPRESSION: Postoperative changes without acute bony abnormality. Reviewed, Interpreted and Dictated by Jaclyn Mcnulty MD Transcribed by Ana Flores Authenticated and [facility]
--- OUTSIDE RECORDS SUMMARY | 2024-12-20 13:04 | XMS_ITS | Encounter Summary ---
Author Organization Healthcare Address [address] [place] [address] Care Team Providers Care Collator Operator Name Role Phone Alexandra Brian Johnson APRN Primary Care Provider [phone] Encounter Details Date Type Department Care Team (Late st Contact Info) Description 10/17/2024 Orders Only [facility] Interventional Pain Medicine [facility][note 3][address] [place] [address] Sanjay Mae [address] [place] [address] Social History Tobacco Use Types Packs/Day Years [...] AM EDT documented as of this encounter Plan of Treatment Upcoming Encounters Date Type Department Care Team (Late st Contact Info) Description 01/03/2025 2:40 PM EDT Office Visit [facility] Interventional Pain Medicine [facility][note 3][address] [place] [address] Michi Skelton MD [address] [facility] [address] [place] [address] 10/05/2025 10:40 AM EDT Office Visit [facility] [address] [place] [address] Kaiden Geiger MD [address] [place] [address] documented as of this encounter Visit Diagnoses Not on filedocumented in this encounter Additional Health Concerns Infection Onset Date Last Indicated Resolved Time MRSA 07/15/2022 07/15/2022 Assessment Noted Time A fall risk assessment has been complete d for the patient 09/07/2024 10:39 AM EDT A Body Mass Index follow-up plan has been documented for the patient 09/22/2024 2:06 PM EDT documented as of this encounter Care Teams Collator Operator Relationship Specialty Start Date End Date Brian Morris APRN [address] [place] [address] PCP - General 09/23/22 documented as of this encounter
--- OUTSIDE RECORDS SUMMARY | 2024-12-20 13:04 | XMS_ITS | Encounter Summary ---
Author Organization [facility] Address [address] [place] [address] Care Team Providers Care Design Assistant Name Role Phone Brian Morris APRN Primary Care Provider [phone] Reason for Visit * Reason Onset Date Comments HCN Patient Medication Refill Request 12/18/2024 Encounter Details Date Type Department Care Team (Late st Contact Info) Description 12/18/[address] [facility] Interventional Pain Medicine [address] [place] [address] Michi Skelton MD [address] [facility] [address] [place] [address] HCN Patient Medication Refill Request Social History Tobacco Use Types Packs/Day Years [...] AM EDT documented as of this encounter Miscellaneous Notes * Telephone Encounter - Janet Franco LPN - 12/19/2024 11:05 AM EDT Spoke with patient concerning med refills. * Telephone Encounter - Emily Garrido - 12/18/2024 3:06 PM EDT Medication Refill Request Medication Name: Morphine Dosage: 15 mg two times daily Preferred Pharmacy & Location: Other: - [facility] - [place], [place] - [address] [id number] Days of medication remaining (if under 3 days please john as urgent): 0 Best contact number: [phone] (mobile) Optimal time of day to reach caller: ANYTIME Additional comments/information from caller: Patient stated that he is out and his next appointmentis not until 01/03/2025.Please call to advise, thanks Note: Please do not reply to this message. Follow-up communication and further actions as a result of this message need to be communicated with the patient directly, if the patient is not active onMyChart. If the patient is active on MyChart, they will receive notification of the communication/outcome via [employer]. documented in this encounter Plan of Treatment Upcoming Encounters Date Type Department Care Team (Late st Contact Info) Description 01/03/2025 2:40 PM EDT Office Visit [facility] Interventional Pain Medicine [address] [place] [address] Michi Skelton MD [address] [facility] [address] [place] [address] 10/05/2025 10:40 AM EDT Office Visit [facility] [address] [facility] [address] [place] [address] John Geiger MD [address] [place] [address] documented as of this encounter [...] documented as of this encounter Care Teams Design Assistant Relationship Specialty Start Date End Date Brian Morris APRN [address] [place] [address] PCP - General 09/23/22 documented as of this encounter
--- OUTSIDE RECORDS SUMMARY | 2024-12-20 13:04 | XMS_ITS | Encounter Summary ---
Author Organization [facility] Address [address] [place] [id number] Care Team Providers Care Manager Personnel Selection Name Role Phone Alexandra Brian Johnson APRN Primary Care Provider [phone] Reason for Visit * Reason Comments Med Refill Encounter Details Date Type Department Care Team (Late st Contact Info) Description 06/18/2023 Refill [facility] Interventional Pain Medicine [address] [place] [address] Tony Priest, DO [address] [place] [address] Chronic pain of right knee; Chronic pain syndrome; Neuropathic pain Social History Tobacco Use Types Packs/Day Years Used Date Smoking Tobacco: Former Cigarettes Q uit: 2002 Smokeless Tobacco: Never Comments:Former smoker, stop ped smoking in distant past Alcohol Use Standard Drinks/Week Comments Not Currently 0 (1 standard drink = 0.6 oz pure alcohol) Alcoholic Drinks/day: Stopped Drinking Alcohol PHQ-2 Answer Date Recorded Patient Health Questionnaire-2 Score 0 06/04/2022 PHQ-2A Answer Date Recorded Patient Health Questionnaire-2 [...] Description 01/03/2025 2:40 PM EDT Office Visit [facility] Interventional Pain Medicine [address] [facility] [place] [address] Michi Skelton MD [address] [facility] [address] [place] [address] 10/05/2025 10:40 AM EDT Office Visit [address] [place] [address] Kaiden Geiger MD [address] [place] [address] documented as of this encounter Visit Diagnoses Diagnosis Chronic pain of right knee Chronic pain syndrome Neuropathic pain documented in this encounter Additional Health Concerns Infection Onset Date Last Indicated Resolved Time MRSA 07/15/2022 07/15/2022 Assessment Noted Time A fall risk assessment has been complete d for the patient 06/14/2023 9:54 AM EST A Body Mass Index follow-up plan has been documented for the patient 06/14/2023 2:51 PM EST documented as of this encounter Care Teams Manager Personnel Selection Relationship Specialty Start Date End Date Brian Morris APRN [address] [place] [address] PCP - General 09/23/22 documented as of this encounter
--- OUTSIDE RECORDS SUMMARY | 2024-12-20 13:04 | XMS_ITS | Clinical Summary ---
Author Organization [employer] ([place], [place], [place], [place]) Address [address] [place] [address] Care Team Providers Care Refrigeration Engineer Name Role Phone CorinaBrian hein MAT Primary Care Provider [phone] Allergies No known active allergies Medications FLUoxetine (PROzac) 40 MG capsule Take 2 capsules (80 mg total) by mouth daily. 4 Active morphine (MS CONTIN) 15 MG 12 hr tablet Take 1 tablet (15 mg total) by mouth every 12 (twelve) hours as needed for pain. 4 Active omeprazole (PriLOSEC) 20 MG capsule Take 1 capsule (20 mg total) by mouth daily. 4 Active QUEtiapine (SEROquel) 100 MG tablet Take 2 tablets (200 mg total) by mouth nightly. 4 Active hydrALAZINE (APRESOLINE) 25 MG tablet Take 1 tablet (25 mg total) by mouth 3 (three) times daily as needed (for Hypertension). 4 Active lisinopriL (PRINIVIL,ZEST RIL) 40 MG tablet Take 1 tablet (40 mg total) by mouth daily. 4 Active metoprolol succinate (TOPROL-XL) 50 MG 24 hr tablet Take 1 tablet (50 mg total) by mouth daily. 4 Active amLODIPine (NORVASC) 10 MG tablet Take 1 tablet (10 mg total) by mouth daily. Active gabapentin enacarbil (Horizant) 300 mg TbER Take 1 tablet by mouth nightly. Max Daily Amount: 1 tablet Active simvastatin (ZOCOR) 10 MG tablet Take 1 tablet (10 mg total) by mouth nightly. Active fluticasone propionate (FLONASE) 50 mcg/actuation nasal spray 2 sprays by each nostril route daily as needed for rhinitis. Active cariprazine (Vraylar) 3 mg capsule Take 1 capsule (3 mg total) by mouth daily. Active semaglutide (Ozempic) 0.25 mg or 0.5 mg (2 mg/3 mL) pnij Inject 0.5 mg subcutaneously every 7 days. Active metFORMIN (GLUCOPHAGE) 500 MG tablet Take 1 tablet (500 mg total) by mouth 2 (two) times daily with breakfast and dinner. Active aspirin 81 MG EC tablet Take 1 tablet (81 mg total) by mouth daily. Active Active Problems Problem Noted Date Diagnosed Date Partial seizures 02/19/2024 Simple partial seizure 02/17/2024 Nonepileptic episode 08/19/2023 Abnormal electroencephalogram (EEG) 08/19/2023 Focal and partial seizures 08/16/2023 Family History Medical History Relation Name Comments No Known Problem Father Migraines Mother Relation Name Status Comments Father Mother Alive Social History Tobacco Use Types Packs/Day Years Used Date Smoking Tobacco: Former Cigarettes Smokeless Tobacco: Former Tobacco Cessation:Counseling Given: Not Answered Alcohol Use Standard Drinks/Week Comments Never 0 (1 standard drink = 0.6 oz pur e alcohol) PRAPARE - Transportation Answer Date Re corded In the past 12 months, has l ack of transportation kept you from medical appointments or from getting medications? Yes 08/16/2023 Lack of Transportation (Non-Medical) Not on file 08/16/2023 Utilities Answer Date Recorded In the past 12 months, has t he [employer], [employer], [employer], or water [employer] threatened to shut off services in your home? No 08/16/2023 Food Insecurity Answer Date Recorded Within the past 12 months, y ou worried that your food would run out before you got money to buy more. Never true 08/16/2023 Within the past 12 months, t he food you bought just didn't last and you didn't have money to get more. Never true 08/16/2023 Transportation Needs Answer Date Record ed In the past 12 months, has l ack of reliable transportation kept you from medical appointments, meetings, work or from getting things needed for daily living? No 08/16/2023 Financial Resource Strain Answer Date R ecorded How hard is it for you to pa y for the very basics like food, housing, medical care, and heating? Would you say it is: Not hard at all 08/16/2023 Employment Answer Date Recorded Do you want help finding or keeping work or a job? I do not need or want help 08/16/2023 Family and Community Support Answer Adán e Recorded If for any reason you need h elp with day-to-day activities such as bathing, preparing meals, shopping, managing finances, etc., do you get the help you need? I don't need any help 08/16/2023 Feeling Lonely or Isolated 0 08/15 Educational Attainment Answer Date Dread rded Do you speak a language other than Mongolian at [facility]? No 08/16/2023 Do you want help with school or training? For example, starting or completing job training or getting a high school diploma, GED or equivalent. No 08/16/2023 Physical Activity Answer Date Recorded Number of minutes of exercise per week 120 08/16/2023 Substance Use Answer Date Recorded How many times in the past y ear have you used prescription drugs for non-medical reasons? Never 08/16/2023 How many times in the past year have you used [place] legal drugs? Never 08/16/2023 Sex and Gender Information Value Date Recorded Sex Assigned at Not on file Legal Sex Male 12:50 PM CDT Gender Identity Not on file Sexual Orientation Not on file Last Filed Vital Signs Vital Sign Reading Time Taken Comments Blood Pressure 137/95 02/20/2024 8:32 AM EDT Pulse 79 02/20/2024 8:32 AM EDT Temperature 36.5 C (97.7 F) 02/20/2024 8:32 AM EDT Respiratory Rate 16 02/20/2024 8:32 AM EDT Oxygen Saturation 98% 02/19/2024 9:25 PM EDT Inhaled Oxygen Concentration - - Weight 96.6 kg (213 lb) 02/01/2024 10:03 AM EDT Height 167.6 cm (5' 6 ) 02/01/2024 10:03 AM EDT Body Mass Index 34.38 02/01/2024 10:03 AM EDT Plan of Treatment Health Maintenance Due Date Last Done Comments CT Colonography 1972 Colonoscopy 1972 Colorectal Cancer Screening 1972 FOBT/FIT 1972 Fit-DNA (Cologuard) 1972 Sigmoidoscopy 1972 Depression Screening (12+) 1984 HIV Screening 12/18/1987 Hepatitis C Screening 1990 Lipid Panel 12/18/2007 Pneumococcal 50+ years (1 of 1 - PCV) 2022 Shingles Vaccine (Zoster) (1 of 2) 2022 COVID-19 VACCINE (1 - 2023- season) 2024 Tobacco Cessation Counseling and Screening (12+) 01/31/2025 02/01/2024 Influenza Vaccine (#1) 2025 DTAP/TDAP/TD VACCINES (4 - T d or Tdap) 05/08/2033 05/08/2023, 12/31/2016, 09/17/2011 Insurance [facility] Advance Directives For more information, please contact: [phone] * Full Code (Latest Code Status on File) Date Activated Date Inactivated Comments 02/17/2024 9:05 AM 02/20/2024 1:44 PM * Full Code Date Activated Date Inactivated Comments 08/16/2023 8:46 AM 08/19/2023 3:09 PM Care Teams Refrigeration Engineer Relationship Specialty Start Date End Date Brian Morris APRN [address] [place] [address] PCP - General Nurse Practitioner 08/16/23
--- OUTSIDE RECORDS SUMMARY | 2024-12-20 13:04 | XMS_ITS | Encounter Summary ---
Author Organization Healthcare Address [address] [place] [address] Care Team Providers Care Content Developer Name Role Phone Brian Morris Alex MAT Primary Care Provider [phone] Encounter Details Date Type Department Care Team (Latest Contact Info) Description 11/07/2024 Travel Social History Tobacco Use Types Packs/Day Years [...] Description 01/03/2025 2:40 PM EDT Office Visit [facility] Interventional Pain Medicine [address] [place] [address] Michi Skelton MD [address] [facility] [address] [place] [address] 10/05/2025 10:40 AM EDT Office Visit [facility] [address] [place] [address] Kaiden Geiger MD [address] [place] [address] documented as of this encounter Visit [...] documented as of this encounter Care Teams Content Developer Relationship Specialty Start Date End Date Brian Morris APRN [address] [place] [address] PCP - General 09/23/22 documented as of this encounter
--- OUTSIDE RECORDS SUMMARY | 2024-12-20 13:04 | XMS_ITS | Encounter Summary ---
Author Organization [facility] Address [address] [place] [address] Care Team Providers Care Motor Vehicle Assembler Name Role Phone Brian Morris APRN Primary Care Provider [phone] Reason for Visit * Reason Onset Date Comments Med Refill 11/17/2024 Encounter Details Date Type Department Care Team (Late st Contact Info) Description 11/17/2024 [facility] Interventional Pain Medicine [address] [facility] [place] [address] Michi Skelton MD [address] [facility] [address] [place] [address] Med Refill Social History Tobacco Use Types Packs/Day Years [...] Telephone Encounter - Janet Franco LPN - 11/17/2024 1:10 PM EDT Spoke with patient concerning message. Advised him that PA on med has and it has been sent to he Pa team. IT is 11.07 if he wants to pay for it out of pocket and that he could potentially be reimbursed if PA is completed iona timely manner, Patient voiced understanding. documented in this encounter Plan of Treatment Upcoming Encounters Date Type Department Care Team (Late st Contact Info) Description 01/03/2025 2:40 PM EDT Office Visit [facility] Interventional Pain Medicine [address] [place] [address] Michi Skelton MD [address] [facility] [address] [place] [address] 10/05/2025 10:40 AM EDT Office Visit [facility] [address] [facility] [address] [place] [address] Kaiden Geiger MD [address] [place] [address] documented as of this encounter [...] documented as of this encounter Care Teams Motor Vehicle Assembler Relationship Specialty Start Date End Date Brian Morris APRN [address] [place] [address] PCP - General 09/23/22 documented as of this encounter
--- OUTSIDE RECORDS SUMMARY | 2024-12-20 13:04 | XMS_ITS | Encounter Summary ---
Author Organization Healthcare Address [address] [place] [address] Care Team Providers Care Resource Protection Specialist Name Role Phone Aura Camejo Primary Care Provider [phone] Brian Morris APRN Primary Care Provider [phone] Encounter Details Date Type Department Care Team (Late Contact Info) Description 01/01/2022 Orders Only External Location [address] [place] [address] Provider, External Social History Tobacco Use Types Packs/Day Years Used Date Smoking Tobacco: Former Cigarettes Smokeless Tobacco: Never Comments:Former smoker, stop ped smoking in distant past Alcohol Use Standard Drinks/Week Comments Not Currently 0 (1 standard drink = 0.6 oz pure alcohol) Alcoholic Drinks/day: Stopped Drinking Alcohol Sex and Gender Information Value Date Recorded Sex Assigned at Male 01/14/2021 10:44 AM EDT Legal Sex Male 8:24 PM EDT Gender Identity Male 01/14/2021 10:44 AM EDT Sexual Orientation Straight 01/14/2021 10 :44 AM EDT COVID-19 Exposure Response Date Recorded In the last 10 days, have yo u been in contact with someone who was confirmed or suspected to have Coronavirus/COVID-19? No / Unsure 12/30/2021 8:33 AM EDT documented as of this encounter Plan of Treatment Upcoming Encounters Date Type Department Care Team (Late st Contact Info) Description 01/03/2025 2:40 PM EDT Office Visit [facility] Interventional Pain Medicine [address] [place] [address] Michi Skelton MD [address] [facility] [address] [place] [address] 10/05/2025 10:40 AM EDT Office Visit [facility] [address] [place] [address] Kaiden Geiger MD [address] [place] [address] documented as of this encounter Procedures Procedure Name Priority Date/Time Associated Diagnosis Comments MR MSK OUTSIDE IMAGES 01/01/2022 8:11 AM EDT documented in this encounter Results * MR MSK OUTSIDE IMAGES (01/01/2022 8:11 AM EDT) Anatomical Region Laterality Modality Magnetic Resonan ce 01/01/2022 8:11 AM EDT us External Provider IMG MRI PROCEDURES Final Resul t documented in this encounter Visit Diagnoses Not on filedocumented in this encounter Additional Health Concerns Infection Onset Date Last Indicated Resolved Time MRSA 07/15/2022 07/15/2022 Assessment Noted Time A fall risk assessment has been complete d for the patient 12/30/2021 8:35 AM EDT documented as of this encounter Care Teams Resource Protection Specialist Relationship Specialty Start Date End Date Aura Camejo PA [address] [place] [address] PCP - General 12/11/21 09/22/22 Brian Morris APRN [address] [place] [address] PCP - General 09/23/22 documented as of this encounter
--- OUTSIDE RECORDS SUMMARY | 2024-12-20 13:04 | XMS_ITS | Encounter Summary ---
Author Organization Healthcare Address [address] [place] [address] Care Team Providers Care Pocket Setter Name Role Phone Brian Morris APRN Primary Care Provider [phone] Encounter Details Date Type Department Care Team (Late st Contact Info) Description 01/18/2024 Orders Only External Location [address] [place] [phone] Brian Morris APRN [address] [place] [id number] Social History Tobacco Use Types Packs/Day Years [...] Description 01/03/2025 2:40 PM EDT Office Visit [facility] Interventional Pain Medicine [address] [place] [address] Michi Skelton MD [address] [facility] [address] [place] [address] 10/05/2025 10:40 AM EDT Office Visit [facility] [address] [place] [address] Kaiden Geiger MD [address] [place] [address] documented as of this encounter Procedures Procedure Name Priority Date/Time Associated Diagnosis Comments XR MSK OUTSIDE IMAGES 01/18/2024 10:56 AM EDT documented in this encounter Results * XR MSK OUTSIDE IMAGES (01/18/2024 10:56 AM EDT) Anatomical Region Laterality Modality Radiographic Amalia ging 01/18/2024 10:5 6 AM EDT Brian Morris APRN IMG XR PROCEDURES Final Res ult documented in this encounter Visit Diagnoses Not on filedocumented in this encounter Additional Health Concerns Infection Onset Date Last Indicated Resolved Time MRSA 07/15/2022 07/15/2022 Assessment Noted Time A fall risk assessment has been complete d for the patient 01/11/2024 11:04 AM EDT A Body Mass Index follow-up plan has been documented for the patient 01/11/2024 1:20 PM EDT documented as of this encounter Care Teams Pocket Setter Relationship Specialty Start Date End Date Brian Morris APRN [address] [place] [address] [place] [address] PCP - General 09/23/22 documented as of this encounter
--- OUTSIDE RECORDS SUMMARY | 2024-12-20 13:04 | XMS_ITS | Encounter Summary ---
Author Organization [facility] Address [address] [place] [address] Care Team Providers Care Coconut Jelly Roller Name Role Phone Alexandra Brian Alex RIVERO Primary Care Provider [phone] Encounter Details Date Type Department Care Team (Late st Contact Info) Description 12/19/2024 Orders Only [facility] Interventional Pain Medicine [facility] [place] [address] Michi Skelton MD [address] [place] [address] [address] [place] [address] Social History Tobacco Use Types Packs/Day Years [...] Description 01/03/2025 2:40 PM EDT Office Visit [facility] Interventional Pain Medicine [facility] [place] [address] Michi Skelton MD [address] [facility] [address] [place] [address] 10/05/2025 10:40 AM EDT Office Visit [facility] [address] [place] [address] Kaiden Geiger MD [address] [place] [address] documented as of this encounter [...] documented as of this encounter Care Teams Coconut Jelly Roller Relationship Specialty Start Date End Date Brian Morris APRN [address] [place] [address] PCP - General 09/23/22 documented as of this encounter
--- OUTSIDE RECORDS SUMMARY | 2024-12-20 13:04 | XMS_ITS | Referral Summary ---
Author Organization [employer] ([place], [place], [place], [place]) Address [address] [place] [address] Care Team Providers Care Internet Marketing Director Name Role Phone Alexandra Brian MAT Primary Care Provider Allergies No known active allergies Medications FLUoxetine [...] (EEG) 08/19/2023 Focal and partial seizures 08/16/2023 Social History Tobacco Use Types Packs/Day Years [...] the past 12 months, has t he [employer], [employer], or water [employer] threatened to shut off services in your [...] Do you speak a language other than Panamanian at [facility]? No 08/16/2023 Do you want help [...] 02/01/2024 10:03 AM EDT Plan of Treatment Not on file Insurance [facility] Advance Directives For more information, please contact: [phone] * Full Code (Latest Code Status on File) Date Activated Date Inactivated Comments 02/17/2024 9:05 AM 02/20/2024 1:44 PM * Full Code Date Activated Date Inactivated Comments 08/16/2023 8:46 AM 08/19/2023 3:09 PM Care Teams Internet Marketing Director Relationship Specialty Start Date End Date Brian Morris, MAT [address] [facility] [place] [address] PCP - General Nurse Practitioner 08/16/23
--- OUTSIDE RECORDS SUMMARY | 2024-12-20 13:04 | XMS_ITS | Clinical Summary ---
Author Organization [facility] Address [address] [place] [address] Care Team Providers Care Elephant Keeper Name Role Phone Brian Morris APRN Primary Care Provider [phone] Allergies No known active allergies Medications FLUoxetine (PROzac) 40 MG capsule Take by mouth 2 (two) times a day. 018 Active omeprazole (PriLOSEC) [address] capsule 021 Active lisinopril 40 MG tablet Take 1 tablet (40 mg) by mouth 1 (one) time each day. 023 Active QUEtiapine (SEROquel) 100 MG tablet Take 2 tablets (200 mg) by mouth 1 (one) time each day. 023 Active ondansetron ODT (Zofran-ODT) 4 MG disintegrating tablet DISSOLVE 1 TABLET IN MOUTH EVERY 8 HOURS NEEDED FOR NAUSEA AND VOMITING 023 Active montelukast (Singulair) 10 MG tablet Take 1 tablet (10 mg) by mouth every night. 024 Active promethazine (Phenergan) 12.5 MG tablet 023 Active amLODIPine (Norvasc) 10 MG tablet Take 1 tablet (10 mg) by mouth 1 (one) time each day. 024 Active lamoTRIgine (LaMICtal) 100 MG disintegrating tablet TAKE 1 TABLET BY MOUTH TWICE DAILY FOR 30 DAYS Active metFORMIN (Glucophage) 500 MG tablet TAKE 1 TABLET BY MOUTH ONCE DAILY FOR 5 DAYS, THEN 1 TAB TWICE DAILY 024 Active Ozempic, 0.25 or 0.5 MG/DOSE, 2 MG/3ML solution pen-injector INJECT 0.25 MG SUBCUTANEOUSLY ONCE A WEEK Active Blood Glucose Monitoring Suppl (FreeStyle freedom lite monitor) w/Device kit USE DIRECTED Active FREESTYLE LITE test strip USE 1 STRIP TWICE DAILY TO TEST SUGAR OR DIRECTED Active FreeStyle Lancets USE DIRECTED Active EQ Aspirin Adult Low Dose 81 MG EC tablet Take 1 tablet (81 mg) by mouth 1 (one) time each day. Active simvastatin (Zocor) 10 MG tablet Take 1 tablet (10 mg) by mouth 1 (one) time each day. Active Vraylar 3 MG capsule Take 1 capsule (3 mg) by mouth 1 (one) time each day. Active fluticasone (Flonase) 50 MCG/ACT nasal spray Administer 2 sprays into each nostril. Active traZODone (Desyrel) 50 MG tablet Active metoprolol succinate XL (Toprol-XL) 100 MG 24 hr tablet Take 1 tablet (100 mg) by mouth 1 (one) time each day. Active diclofenac (Voltaren) 75 MG EC tablet Active naloxone (Narcan) 4 mg/0.1 mL nasal spray 1. Give 1 spray in nostril for no/slow breathing or cannot wake after opioid use 2. Call 911 3. Repeat in other nostril if symptoms continue Call 911. Give 4 mg (1 spray) into one nostril. Repeat every 2-3 minutes as needed, alternating nostrils, until medical assistance arrives. 2 each 1 2025 Active Vraylar 4.5 MG capsule Take 1 capsule by mouth daily. Active metFORMIN, MOD, (Glumetza) 500 MG 24 hr tablet Take 1 tablet by mouth 2 (two) times a day with meals. Do not crush, chew, or split. Active metoprolol tartrate (Lopressor) 100 MG tablet Take 1 tablet by mouth daily. Active lisinopril 40 MG tablet Take 1 tablet by mouth daily. Active hydroCHLOROthiazi de (HYDRODiuril) 25 MG tabletIndications :Hypertensive chronic kidney disease with stage 1 through stage 4 chronic kidney disease, or unspecified chronic kidney disease Take 1 tablet by mouth daily. 90 tablet 3 025 Active morphine CR (MS Contin) 15 MG 12 hr tablet Take 1 tablet by mouth 2 times a day for 14 days. Do not crush, chew, or split. 28 tablet 025 2024 Active morphine (MSIR) 15 MG tablet Take 1 tablet by mouth 2 (two) times a day. 2024 Discontinued morphine CR (MS Contin) 15 MG 12 hr tablet Take 1 tablet by mouth 2 times a day. Do not crush, chew, or split. 60 tablet 025 2024 Discontinued morphine CR (MS Contin) 15 MG 12 hr tablet Take 1 tablet by mouth 2 times a day. Do not crush, chew, or split. 60 tablet 025 2024 Discontinued Hospital, Clinic, or Other Facility Administered Medication Ordered Dose Route Frequency Start Date End Date Status NS IVFIndications:Chronic pain of right knee 100 mL/hr IV Once 04/29/2021 Active sodium chloride 0.9 % infusionIndications:Chronic pain of right knee 100 mL/hr IV Continuous 12/30/2021 Active Active Problems Problem Noted Date Diagnosed Date CKD (chronic kidney disease) stage 1, GFR 90 ml/min or greater 09/22/2024 CKD (chronic kidney disease) stage 2, GFR 60-89 ml/min 05/26/2024 Hypertensive chronic kidney disease with stage 1 through stage 4 chronic kidney disease, or unspecified chronic kidney disease 05/26/2024 Persistent proteinuria 05/26/2024 Chronic kidney disease-mineral and bone disorder (CKD-MBD) 05/26/2024 Obesity (BMI 35.0-39.9 without comorbidity) 09/2023 Complete tear of left rotator cuff 08/18/2022 Overview (08/18/2022): Added automatically from request for surgery [id number] Nontraumatic incomplete tear of right rotator cu ff 04/24/2022 Overview (04/24/2022): Added automatically from request for surgery [id number] Solitary kidney, acquired 12/11/2021 Chronic pain of right knee 11/25/2020 Chronic, continuous use of opioids 11/25/2020 Pain management contract signed 06/10/2020 Chronic pain syndrome 12/28/2018 [facility] prescription opiate use 12/28/2018 Acute meniscal tear, medial 08/11/2016 Post-traumatic osteoarthritis of knee 05/14/2015 Osteochondral defect 04/18/2015 Hyperlipemia 10/28/2012 Anxiety disorder 10/28/2012 Gastro-esophageal reflux disease without esophag itis 05/16/2012 Knee internal derangement 05/16/2012 Osteoarthritis of right knee 05/16/2012 Mood disorder 05/16/2012 Neuralgia 05/16/2012 Encounters Date Type Department Care Team Description 12/19/2024 Orders Only [facility] Interventional Pain Medicine [address] [place] [address] Michi Skelton MD 12/18/2024 Telephone [facility] Interventional Pain Medicine [address] [place] [address] Michi Skelton MD [facility] Patient Medication Refill Request 11/17/2024 Telephone [facility] Interventional Pain Medicine [address] [place] [address] Michi Skelton MD Med Refill 11/07/2024 10:00 AM EDT Office Visit [facility] Interventional Pain Medicine [address] [place] [address] Michi Skelton MD Chronic pain of left knee (Primary Dx); Chronic use of opiate for therapeutic purpose 11/07/2024 Travel 10/17/2024 Orders Only [facility] Interventional Pain Medicine [address] [place] [address] Sanjay Mae 10/17/2024 Telephone [facility] Interventional Pain Medicine [address] [place] [address] Michi Skelton MD [facility] - Patient Message 09/22/2024 1:40 PM EDT Office Visit [facility] [address] [place] [address] Kaiden Geiger MD Hypertensive chronic kidney disease with stage 1 through stage 4 chronic kidney disease, or unspecified chronic kidney disease (Primary Dx); Solitary kidney, acquired; Persistent proteinuria; Chronic kidney disease-mineral and bone disorder (CKD-MBD); CKD (chronic kidney disease) stage 1, GFR 90 ml/min or greater 09/22/2024 Travel from Last 3 Months Immunizations Immunization Administration Dates Next Due Hep B, adult 12/27/2007, 8,06/28/2007,2006,07/30/2006,06/29/2006 Influenza, injectable, quadr ivalent, preservative free 04/05/2019,03/29/2017 Influenza, seasonal, injectable 04/16/2016 Tdap 05/08/2023,12/31/2016,09/17/2011 Family History Medical History Relation Name Comments no known history Father pt adoped by stepfather Lung cancer Maternal Grandfather Heart attack Other 1 Heart failure Other 2 Diabetes Other 3 Heart disease Other 4 Hypertension Other 5 Conversions - Other Other 6 Reported Family History Of Mental Illness (Not Retardation) Stroke Other 7 Anesthesia problems Neg Hx Malig Hyperthermia Neg Hx Relation Name Status Comments Father pt adoped by stepfather Maternal Grandfather Other 1 Other 2 Other 3 Other 4 Other 5 Other 6 Other 7 Social History Tobacco Use Types Packs/Day Years Used Date Smoking Tobacco: Former Cigarettes Q uit: 2002 Passive Smoke Exposure: Never Smokeless Tobacco: Never Tobacco Cessation:Counseling Given: Not Answered Alcohol Use Standard Drinks/Week Comments Not Currently [...] Orientation Straight 01/14/2021 10 :44 AM EDT Last Filed Vital Signs Vital Sign Reading Time Taken Comments Blood Pressure 135/89 11/07/2024 10:03 AM EDT Pulse 90 11/07/2024 10:03 AM EDT Temperature 36.4 C (97.6 F) 11/07/2024 10:03 AM EDT Respiratory Rate 18 11/07/2024 10:03 AM EDT Oxygen Saturation 96% 09/22/2024 1:25 PM EDT Inhaled Oxygen Concentration - - Weight 93.9 kg (207 lb) 11/07/2024 10:03 AM EDT Height 167.6 cm (5' 6 ) 11/07/2024 10:03 AM EDT Body Mass Index 33.41 11/07/2024 10:03 AM EDT Plan of Treatment Upcoming Encounters Date Type Department Care Team (Late st Contact Info) Description 01/03/2025 2:40 PM EDT Office Visit [facility] Interventional Pain Medicine [address] [place] [address] Michi Skelton MD [address] [facility] [address] [place] [address] 10/05/2025 10:40 AM EDT Office Visit [facility] [address] [place] [address] Kaiden Geiger MD [address] [place] [address] Health Maintenance Due Date Last Done Comments [facility]-HIV Screening 1972 [facility]-Hepatitis C Screening 1972 [facility]-Infant/Child/Adol SDOH Screenings 1972 [facility]- SDOH Screenings 1990 [facility]-Adult SDOH Screenings 1990 CT Colonography 2017 Colonoscopy 2017 FIT-DNA 2017 FIT 2017 FOBT 2017 Sigmoidoscopy 2017 [facility]-Colorectal Cancer Screening 2017 [facility]-Pneumococcal Vaccine: 50+ Years (1 of 1 - PCV) 2022 [facility]-Zoster Vaccines (1 of 2) 2022 SMV-SYNAX-40 Vaccine (1 - 2024-25 season) 2024 [facility]-Depression Screening 09/08/2024 09/09/2023 [facility]-Influenza Vaccine (#1) 02/05/202504/05, 03/29/2017, 04/16/2016 [facility]-DTaP,Tdap,and Td Vaccines (4 - Td or Tdap) 05/08/2033 05/08/2023, 12/31/2016, 09/17/2011 [facility]-Hepatitis B Vaccines Completed 008, 07/29/2007, 06/28/2007, Additional history exists [facility]-Obesity Intervention Completed 025, 09/22/2024, 09/07/2024, Additional history exists HPV Vaccines Aged Out No longer eligi ble based on patient's age to complete this topic [facility]-HIB Vaccines Aged Out No longer e ligible based on patient's age to complete this topic [facility]-Hepatitis A Vaccines Aged Out No longer eligible based on patient's age to complete this topic [facility]-IPV Vaccines Aged Out No longer e ligible based on patient's age to complete this topic [facility]-Rotavirus Vaccines Aged Out No lo nger eligible based on patient's age to complete this topic Medical Devices Implanted Type Area [employer] Device Identifier Shelf Expiration Date Model / Serial / Lot [place] Ultra Twinfix 5.5 - [id number] Implanted:Qt y: 1 on 05/27/2022 by Dragan Kathleen MD at [facility] Implant Right: Shoulder [employer] (Acufex)-[id number] 07/19/2026 [id number] / / [id number] Spinal Cord Stimulator- Implanted: (Quantity not on file) Spinal Cord Stimulator Left: Hip Description:pt states he could turn this off if needed for surgery, will take to staff am of OR [place] All Suture Qfix 2.8mm - [id number] Implanted:Qt y: 1 on 12/04/2022 by Dragan Kathleen MD at [facility] Left: Shoulder [employer] (Acufex)-[id number] 10/02/2025 [id number] / / [id number] Additional Health Concerns Infection Onset Date Last Indicated MRSA 07/15/2022 07/15/2022 Insurance [employer] Care Teams Elephant Keeper Relationship Specialty Start Date End Date Brian Morris APRN NPI: [id number] [place] [address] PCP - General 09/23/22
--- OUTSIDE RECORDS SUMMARY | 2024-12-20 13:04 | XMS_ITS | Encounter Summary ---
Author Organization [facility] Address [address] [place] [address] Care Team Providers Care Associate Property Manager Name Role Phone Brian Morris APRN Primary Care Provider [phone] Reason for Visit * Reason Comments Med Refill Encounter Details Date Type Department Care Team (Late st Contact Info) Description 05/03/2024 Refill [facility] Interventional Pain Medicine [address] [place] [phone] Sylvie Rico [address] [place], [place] [id number] Social History Tobacco Use Types Packs/Day Years [...] Description 01/03/2025 2:40 PM EDT Office Visit [facility] Interventional Pain Medicine [address] [place] [phone] Michi Skelton MD [address] [facility] [address] [place] [phone] 10/05/2025 10:40 AM EDT Office Visit [facility] [address] [place] [address] Kaiden Geiger MD [address] [place] [address] documented as of this encounter Visit Diagnoses Not on filedocumented in this encounter Additional Health Concerns Infection Onset Date Last Indicated Resolved Time MRSA 07/15/2022 07/15/2022 Assessment Noted Time A fall risk assessment has been complete d for the patient 03/14/2024 10:39 AM EDT A Body Mass Index follow-up plan has been documented for the patient 03/14/2024 11:05 AM EDT documented as of this encounter Care Teams Associate Property Manager Relationship Specialty Start Date End Date Brian Morris APRN [address] [place] [address] [place] [address] PCP - General 09/23/22 documented as of this encounter
--- OUTSIDE RECORDS SUMMARY | 2024-12-20 13:04 | XMS_ITS | Encounter Summary ---
Author Organization Healthcare Address [address] [place] [address] Care Team Providers Care Cyber Policy And Strategy Planner Name Role Phone Brian Morris APRN Primary Care Provider [phone] Encounter Details Date Type Department Care Team (Late st Contact Info) Description 09/10/2024 Results Follow-Up [facility] Interventional Pain Medicine [address] [facility] [place] [address] Renita San APRN [address] [facility] [address] [place] [address] Social History Tobacco Use Types [...] as of this encounter Miscellaneous Notes * Result Encounter Note - Renita San APRN - 09/10/2024 11:10 AM EDT Will you contact lab and have them look at LCMS -positive for codeine documented in this encounter Plan of Treatment Upcoming Encounters Date Type Department Care Team (Late st Contact Info) Description 01/03/2025 2:40 PM EDT Office Visit [facility] Interventional Pain Medicine [address] [facility] [place] [address] Michi Skelton MD [address] [facility] [address] [place] [address] 10/05/2025 10:40 AM EDT Office Visit [facility] [address] [facility] [address] [place] [address] Kaiden Geiger MD [address] [place] [address] documented as of this encounter Visit Diagnoses Not on filedocumented in this encounter Additional Health Concerns Infection Onset Date Last Indicated Resolved Time MRSA 07/15/2022 07/15/2022 Assessment Noted Time A fall risk assessment has been complete d for the patient 09/07/2024 10:39 AM EDT A Body Mass Index follow-up plan has been documented for the patient 09/08/2024 9:18 AM EDT documented as of this encounter Care Teams Cyber Policy And Strategy Planner Relationship Specialty Start Date End Date Brian Morris APRN [address] [place] [address] PCP - General 09/23/22 documented as of this encounter
== END 2024-12-20 23:59 | disposition home or self-care (01) ==
LOC: RAD 13:02
PROVIDERS: PCP Nurse Practitioner Family; Visit Provider Physician Assistant
DX: M25.561 Pain in right knee (principal); Z98.890 Other specified postprocedural states
CPT/HCPCS: 73562

== ENCOUNTER 2025-02-24 12:46 | Emergency (ER) | payer MEDICAID, SELFPAY ==
--- OUTSIDE RECORDS SUMMARY | 2025-01-03 14:40 | XMS_ITS | Encounter Summary ---
Author Organization [facility] Address [address] [place] [address] Care Team Providers Care Sequins Spooler Name Role Phone Brian Morris APRN Primary Care Provider [phone] Reason for Visit * Reason Comments Med Refill Encounter Details Date Type Department Care Team (Late st Contact Info) Description 01/03/2025 2:40 PM EDT Office Visit [facility] Interventional Pain Medicine [address] [facility] [place] [address] Michi Skelton MD [address] [facility] [address] [place] [address] Chronic pain of right knee (Primary Dx) Social History Tobacco Use Types Packs/Day Years [...] Sign Reading Time Taken Comments Blood Pressure 126/90 01/03/2025 2:30 PM EDT Pulse 73 01/03/2025 2:30 PM EDT Temperature 36.4 C (97.5 F) 01/03/2025 2:30 PM EDT Respiratory Rate 18 01/03/2025 2:30 PM EDT Oxygen Saturation - - Inhaled Oxygen Concentration - - Weight 90.7 kg (200 lb) 01/03/2025 2:30 PM EDT Height 167.6 cm (5' 6 ) 01/03/2025 2:30 PM EDT Body Mass Index 32.28 01/03/2025 2:30 PM EDT documented in this encounter Miscellaneous Notes * Clinician Note - Ottoniel Jacobsen - 01/03/2025 2:40 PM EDT Morphine 01/03/25 1000 * Progress Notes - Michi Skelton MD - 01/03/2025 2:40 PM EDT Images from the original note were not included. Interventional Pain Medicine Follow Up Note Subjective: Interval History: 01/03/2025 Juanjose presents today for medication follow up [...] stores his medications in a secure location. He does report over the last 2 and half weeks and increasing right knee pain that is more midline along the joint line than his typical medial sided knee pain. He reports having a follow-up appointment with Dr. Fairbanks on the of this month Current GPS: 52.5 Previous GPS: 44 History of Present Illness: Juanjose Borden is a 54 y.o. male presents for Chronic right knee pain s/p multiple surgeries inpast s/p right L3/L4 DRG. Other hx includes sleep apnea (uses CPAP) and HTN Pain Site: right knee Onset: years Severity: 5/10 Descriptors: Dull, aching Aggravating Factors: Walking, standing Relieving Factors: pain medication, DRG Associated Symptoms: None Current medication Current Pain Medications ARIPiprazole (Abilify) 10 MG tablet ARIPiprazole (Abilify) 5 MG tablet diclofenac (Voltaren) 75 MG EC tablet EQ Aspirin Adult Low Dose 81 MG EC tablet Take 1 tablet (81 mg) by mouth 1 (one) time each day. FLUoxetine (PROzac) 40 MG capsule Take by mouth 2 (two) times a day. lamoTRIgine (LaMICtal) 100 MG disintegrating tablet TAKE 1 TABLET BY MOUTH TWICE DAILY FOR 30 DAYS morphine CR (MS Contin) 15 MG 12 hr tablet Take 1 tablet by mouth 2 times a day for 14 days. Do notcrush, chew, or split. morphine CR (MS Contin) 15 MG 12 hr tablet Take 1 tablet by mouth 2 times a day. Do not crush, chew, or split. traZODone (Desyrel) 50 MG tablet Vraylar 4.5 MG capsule Take 1 capsule by mouth daily. QUEtiapine (SEROquel) 100 MG tablet Take 2 tablets (200 mg) by mouth 1 (one) time each day. Vraylar 3 MG capsule Take 1 capsule (3 mg) by mouth 1 (one) time each day. Previous Pain Medications NSAIDs, tylenol, voltaren gel, diclofenac tablets, compound cream temazepam Previous Non-Interventional Treatments physical therapy, > 6 [...] Assessment & Plan: Juanjose Borden is a 54 y.o. male with persistent right knee pain. We will continue a multimodaltreatment approach and involve interventional technique where indicated. He is responding favorablyto SCS (Yo with last reprogramming 09/07/2024) and oral medication [...] given today - Patient purchased CBD gummies; receipts have been scanned into chart A Controlled substance/opioid agreement: Signed 09/07/24 B Last LCMS was 09/07/24 appropriate; POC UDS appropriate today for opioid and THC C PDMP/TEDDY reviewed today: appropriate D As [...] up in 2 months for medication reevaluation documented in this encounter Plan of Treatment Upcoming Encounters Date Type Department Care Team (Late st Contact Info) Description 02/27/2025 9:20 AM EDT Office Visit [facility] Interventional Pain Medicine [address] [place] [address] Michi Skelton MD [address] 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
--- OUTSIDE RECORDS SUMMARY | 2025-01-11 14:31 | XMS_ITS | Encounter Summary ---
Author Organization Healthcare Address [address] [place] [address] Care Team Providers Care Sample Preparation Supervisor Name Role Phone Brian Morris APRN Primary Care Provider [phone] Encounter Details Date Type Department Care Team (Latest Contact Info) Description 01/11/2025 2:31 PM EDT - 01/11/2025 11:59 PM EDT Hospital Encounter Medical Office Building Radiology [facility] [place] [address] Chronic pain of right knee Discharge Disposition: Home or Self Care Social History Tobacco Use Types Packs/Day Years [...] AM EDT documented as of this encounter Medications at Time of Discharge amLODIPine (Norvasc) 10 MG tablet Take 1 tablet (10 mg) by mouth 1 (one) time each day. 4 ARIPiprazole (Abilify) 10 MG tablet 5 ARIPiprazole (Abilify) 5 MG tablet 5 Blood Glucose Monitoring Suppl (FreeStyle freedom lite monitor) w/Device kit USE DIRECTED 4 diclofenac (Voltaren) 75 MG EC tablet 4 EQ Aspirin Adult Low Dose 81 MG EC tablet Take 1 tablet (81 mg) by mouth 1 (one) time each day. 4 FLUoxetine (PROzac) 40 MG capsule Take by mouth 2 (two) times a day. 8 fluticasone (Flonase) 50 MCG/ACT nasal spray Administer 2 sprays into each nostril. 4 FreeStyle Lancets USE DIRECTED 02 4 FREESTYLE LITE test strip USE 1 STRIP TWICE DAILY TO TEST SUGAR OR DIRECTED 4 hydroCHLOROthiazide (HYDRODiuril) 25 MG tabletIndications:H ypertensive chronic kidney disease with stage 1 through stage 4 chronic kidney disease, or unspecified chronic kidney disease Take 1 tablet by mouth daily. 90 tablet 3 5 lamoTRIgine (LaMICtal) 100 MG disintegrating tablet TAKE 1 TABLET BY MOUTH TWICE DAILY FOR 30 DAYS lisinopril 40 MG tablet Take 1 tablet (40 mg) by mouth 1 (one) time each day. 3 lisinopril 40 MG tablet Take 1 tablet by mouth daily. metFORMIN (Glucophage) 500 MG tablet TAKE 1 TABLET BY MOUTH ONCE DAILY FOR 5 DAYS, THEN 1 TAB TWICE DAILY 4 metFORMIN, MOD, (Glumetza) 500 MG 24 hr tablet Take 1 tablet by mouth 2 (two) times a day with meals. Do not crush, chew, or split. metoprolol succinate XL (Toprol-XL) 100 MG 24 hr tablet Take 1 tablet (100 mg) by mouth 1 (one) time each day. 4 metoprolol tartrate (Lopressor) 100 MG tablet Take 1 tablet by mouth daily. montelukast (Singulair) 10 MG tablet Take 1 tablet (10 mg) by mouth every night. 4 morphine CR (MS Contin) 15 MG 12 hr tablet Take 1 tablet by mouth 2 times a day. Do not crush, chew, or split. 60 tablet 5 morphine CR (MS Contin) 15 MG 12 hr tablet Take 1 tablet by mouth 2 times a day. Do not crush, chew, or split. 60 tablet 5 03/02/20 25 naloxone (Narcan) 4 mg/0.1 mL nasal spray 1. Give 1 spray in nostril for no/slow breathing or cannot wake after opioid use 2. Call 911 3. Repeat in other nostril if symptoms continue Call 911. Give 4 mg (1 spray) into one nostril. Repeat every 2-3 minutes as needed, alternating nostrils, until medical assistance arrives. 2 each 1 5 07/10/19 26 omeprazole (PriLOSEC) [address] capsule 1 ondansetron ODT (Zofran-ODT) 4 MG disintegrating tablet DISSOLVE 1 TABLET IN MOUTH EVERY 8 HOURS NEEDED FOR NAUSEA AND VOMITING 3 Ozempic, 0.25 or 0.5 MG/DOSE, 2 MG/3ML solution pen-injector INJECT 0.25 MG SUBCUTANEOUSLY ONCE A WEEK 4 promethazine (Phenergan) 12.5 MG tablet 3 QUEtiapine (SEROquel) 100 MG tablet Take 2 tablets (200 mg) by mouth 1 (one) time each day. 3 simvastatin (Zocor) 10 MG tablet Take 1 tablet (10 mg) by mouth 1 (one) time each day. 4 traZODone (Desyrel) 50 MG tablet 4 Vraylar 3 MG capsule Take 1 capsule (3 mg) by mouth 1 (one) time each day. 4 Vraylar 4.5 MG capsule Take 1 capsule by mouth daily. 5 documented as of this encounter Plan of Treatment Upcoming Encounters Date Type Department Care Team (Late st Contact Info) Description 02/27/2025 9:20 AM EDT Office Visit [facility] Interventional Pain Medicine [address] [place] [address] Michi Skelton MD [address] [facility] [address] [place] [address] 10/05/2025 10:40 AM EDT Office Visit [facility] [address] [place] [address] Kaiden Geiger MD [address] [place] [id number] documented as of this encounter Procedures Procedure Name Priority Date/Time Associated Diagnosis Comments XR KNEE RIGHT 4+ VIEWS Routine 01/11/2025 2:36 PM EDT Chronic pain of right knee documented in this encounter Results * New Patient: XR Knee (Lateral / [place] / Tunnel / AP Standing with Marker) (01/11/2025 2:36 PM EDT) Anatomical Region Laterality Modality Lower Extremities, Knee Right Digital Radiography Impressions 01/11/2025 2:42 PM EDT 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 CRITICAL RESULT: No. COMMUNICATION: Per this written report. Drafted by Melvin Gómez MD on 01/11/2025 2:40 PM Final report signed by Melvin Gómez MD on 01/11/2025 2:42 PM Narrative 01/11/2025 2:42 PM EDT CLINICAL INDICATION: knee pain TECHNIQUE: XR KNEE RIGHT 4+ VIEWS COMPARISON: February 24, 2024. FINDINGS: 4 views of the right knee show patellofemoral unicompartmental joint replacement without periprosthetic lucency. Small effusion. Joint alignment is normal. No fracture or osteonecrosis. Postoperative changes in the tibial tuberosity. Standing AP view of the left knee shows normal joint space and alignment. Procedure Note Melvin Gómez MD - 01/11/2025 CLINICAL INDICATION: knee pain TECHNIQUE: XR KNEE RIGHT 4+ VIEWS COMPARISON: February 24, 2024. FINDINGS: 4 views of the right knee show patellofemoral unicompartmental jointreplacement without periprosthetic lucency. Small effusion. Jointalignment is normal. No fracture or osteonecrosis. Postoperative changesin the tibial tuberosity. Standing AP view of the left knee shows normaljoint space and alignment. IMPRESSION: Right patellofemoral unicompartmental joint replacement withoutcomplication. CRITICAL RESULT: No. COMMUNICATION: Per this written report. 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
--- OUTSIDE RECORDS SUMMARY | 2025-01-11 15:30 | XMS_ITS | Encounter Summary ---
Author Organization Healthcare Address [address] [place] [address] Care Team Providers Care Supervisor Boiler Repair Name Role Phone Brian Morris APRN Primary Care Provider [phone] Reason for Referral * Other Medical (Routine) - Pending Review Specialty Diagnoses / Procedures Referred By Jason guadalupe Referred To Contact Diagnoses Chronic pain of right knee Procedures Injection - Large Joint: R knee David Fairbanks MD [address] [place] [address] Phone: tel: fax: Referral ID Status Reason Start Date Expiration Date V isits Requested Visits Authorized [id number] Pending Review 01/11/2025 07/13/2026 1 1 Reason for Visit * Reason Comments Follow-up Encounter Details Date Type Department Care Team (Late st Contact Info) Description 01/11/2025 3:30 PM EDT Office Visit Medical Office Building [facility] [address], [address] [place] [address] David Fairbanks MD [address] [place] [address] Chronic pain of right knee (Primary Dx) [...] Sign Reading Time Taken Comments Blood Pressure 106/78 01/11/2025 2:45 PM EDT Pulse 89 01/11/2025 2:45 PM EDT Temperature - - Respiratory Rate - - Oxygen Saturation 98% 01/11/2025 2:45 PM EDT Inhaled Oxygen Concentration - - Weight 91.3 kg (201 lb 4.5 oz) 01/11/2025 2:45 P M EDT Height - - Body Mass Index 32.49 01/03/2025 2:30 PM EDT documented in this encounter Miscellaneous Notes * Progress Notes - David Fairbanks MD - 01/11/2025 3:30 PM EDTAssociated Order(s): Injection - Large Joint: R knee Post-Procedure Diagnose(s): Chronic pain of right knee Images from the original note were not included. Subjective: Juanjose Borden is a 54 y.o. y/o male who comes in today for right knee pain. Patient has a history of multiple right knee surgeries, genicular artery embolization, and L3/L4 SCS. The patient localizes the pain/problem to the anterior/medial aspect of the right knee. The patient has had the problem for several years. The patient reports the pain as Dull, Aching, and Sharp. The patient reports the pain as getting progressively worse to where he is having to use opioid medication to help with pain. He states that he is not finding much relief from any conservative treatment with Dr. Skelton at [facility] at this time. The pain/problem is worse with all activity. The pain is Continuous. The following treatments have been attempted: Anti-inflammatories, Narcotic Pain Medications, Physical Therapy, and Injections Past Medical History[1] Surgical History[2] Social History Socioeconomic History Marital status: Spouse name: Not on file Number of children: Not on file Years of education: Not on file Highest education level: Not on file Occupational History Not on file Tobacco Use Smoking status: Former Current packs/day: 0.00 Types: Cigarettes Quit date: 2002 Years since quittin.6 Passive exposure: Never Smokeless tobacco: Never Vaping Use Vaping status: Never Used Substance and Sexual Activity Alcohol use: Not Currently Comment: Alcoholic Drinks/day: Stopped Drinking Alcohol Drug use: Yes Comment: CBD Sexual activity: Defer Other Topics Concern Not on file Social History Narrative Not on file Social Drivers of Health Financial Resource Strain: Low Risk (08/16/2023) Received from [facility] ([place], [place]) Financial Resource Strain : 0 Food Insecurity: No Food Insecurity (08/16/2023) Received from [facility] ([place] Food Insecurity : 0 : 0 Transportation Needs: No Transportation Needs (09/16/2023) Received from [facility] ([place] Transportation Needs : 2 Recent Concern: Transportation Needs - Unmet Transportation Needs (08/16/2023) Received from [facility] ([place] PRAPARE - Transportation Lack of Transportation (Medical): Yes Lack of Transportation (Non-Medical): Not on file Physical Activity: Insufficiently Active (08/16/2023) Received from [facility] ([place] Physical Activity Number of minutes of exercise per week : 120 Stress: No Stress Concern Present (08/16/2023) Received from [facility] ([place] Stress Stress means a situation in which a person feels tense, restless, nervous, or anxious, or is unableto sleep at night because his or her mind is troubled all the time. Do you feel this kind of str...: Not at all Social Connections: Low Risk (08/16/2023) Received from [facility] ([place], [place], [place]) Family and Community Support : 0 : 0 Intimate Partner Violence: Unknown (03/17/2023) Received from [facility] Abuse Screen Unsafe at Home or Work/School: Not on file Feels Threatened by Someone?: Not on file Does Anyone Keep You from Contacting Others or Doint Things Outside the Home?: Not on file Physical Sign of Abuse Present: Not on file Housing Stability: Low Risk (08/25/2023) Received from [facility] ([place] Housing Stability : 0 : 0 Recent Concern: Housing Stability - High Risk (08/16/2023) Received from [facility] ([place]) Housing Stability : 0 : 0 Allergies[3] Current Medications[4] I have reviewed and updated the patient's past medical history, past surgical history, social history, and family history. This is located both in the patient's note and their intake form that has been scanned into the medical record for today's visit. 14 point review of systems was reviewed per signed intake sheet and is otherwise negative except asnoted above. Objective: Body mass index is 32.49 kg/m??. 07/10/2024 9:14 AM 09/07/2024 10:39 AM 09/07/2024 11:17 AM 09/22/2024 1:25 PM 11/07/2024 10:03 AM 01/03/2025 2:30 PM 01/11/2025 2:45 PM Vitals Systolic 150 140 148 137 135 126 106 Diastolic 98 110 103 86 89 90 78 Heart Rate 79 77 88 85 90 73 89 Temp 36.7 C 36.3 C 36.6 C 36.4 C 36.4 C Resp 16 14 18 18 18 Height (cm) 167.6 cm 167.6 cm 167.6 cm 167.6 cm 167.6 cm Weight (kg) 90.719 kg 90.719 kg 96.163 kg 93.895 kg 90.719 kg 91.3 kg BMI 32.28 kg/m2 32.28 kg/m2 34.22 kg/m2 33.41 kg/m2 32.28 kg/m2 32.49 kg/m2 BSA (m2) 2.06 m2 2.06 m2 2.12 m2 2.09 m2 2.06 m2 2.06 m2 Visit Report Report Report Report Report Report Report Report Knee Pain location: Anterior Skin: Well healed midline incision ROM: 0-120 Instability: Stable to varus/valgus Alignment: Neutral Effusion: Minimal Quadriceps strength level: Fair My independent interpretation of radiographic testing shows: Right knee x-rays have been reviewed. Patellofemoral arthroplasty is in good position without any signs of loosening or subsidence. Tibialfemoral joint space is still well-maintained. New Patient: XR Knee (Lateral / Browns / Tunnel / AP Standing with Marker) Result Date: 01/11/2025 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 CRITICAL RESULT: No. COMMUNICATION: Per this written report. Drafted by Melvin Gómez MD on 01/11/2025 2:40 PM Final report signed by Melvin Gómez MD on 01/11/2025 2:42 PM Notes reviewed: pain management Results of tests reviewed: previous radiographs Assessment and plan: Chronic pain of right knee Orders Placed This Encounter New Patient: XR Knee (Lateral / Browns / Tunnel / AP Standing with Marker) No follow-ups on file. Had a lengthy discussion with the patient here today. His patellofemoral arthroplasty components are in good position. There is no change in his radiographs compared to a year ago. His tibial femoraljoint space is still well- maintained. I would be reluctant to recommend conversion to total knee art hroplasty given the radiographic findings that has tibial femoral joint space is well-maintained. Given the mild pain that he continues to be in not certain that that we would improve his pain and symptoms with conversion and there is always the risk that we could make him worse specifically if he had developed periprosthetic joint infection. Alternatively we discussed other treatment options to include a repeat injection into the knee. We could do steroid injection today. If he does see reliefpatient has not had a gel injection this could pursue doing gel injection in the future. If he doessee relief from the injection and he fails further injection management we could then convert him ov er to total knee arthroplasty. Discussed we would need to come up with a specific treatment protocol to help control his postoperative pain given the large narcotic requirements that he is currently on. This problem is a chronic problem with some progression . Minor procedure risk factors were discussed, (Injection site pain, infection, inflammation) and decision was made for procedure. Rx management per plan. The patient's condition required a separately identifiable evaluation and management documented in this note which was a service above and beyond the usual preoperative and post-operative care associated with the procedure performed. Patient ID: Juanjose Borden is a 54 y.o. male. Encounter Diagnosis Name Primary? Chronic pain of right knee Yes Injection - Large Joint: R knee Indications: pain Details: 22 G needle, anterior approach Medications: 15 mg bupivacaine 0.5 %; 30 mg lidocaine 1 %; 80 mg Kenalog-40 40 MG/ML Outcome: tolerated well, no immediate complications Procedure, treatment alternatives, risks and benefits explained, specific risks discussed (Risks include but are not limited to pain, bleeding, infection, failure to relieve symptoms). Consent was given by the patient. Immediately prior to procedure a time out was called to verify the correct patient, procedure, equipment, sales support specialist and site/side marked as required. Patient was prepped and draped in the usual sterile fashion. 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 Rosario 11/25/2022 Hyperlipidemia Hypertension Joint pain MRSA carrier pt states MRSA showed up in nasal swab 2022 at [facility], with interventional pain clinic PONV (postoperative nausea and vomiting) once from eating too soon [2] Past Surgical History: Procedure Laterality Date ARTHROPLASTY N/A Primary Repair Of Knee Ligament Cruciate Anterior from [facility] CARPAL TUNNEL RELEASE CHOLECYSTECTOMY JOINT REPLACEMENT KNEE SURGERY N/A Knee Surgery from [facility] KNEE SURGERY 9 knee surgeries, last 2012 approx LASER ABLATION Right knee NEPHRECTOMY N/A Donor Nephrectomy from [facility] ORTHOPEDIC SURGERY OTHER SURGICAL HISTORY N/A Surgery Testis Excision Of Local Lesion from [facility] OTHER SURGICAL HISTORY N/A Knee Arthroscopy from [facility] TOTAL SHOULDER ARTHROPLASTY TRIGGER POINT INJECTION [3] No Known Allergies [4] Current Outpatient Medications Medication Sig Dispense Refill amLODIPine (Norvasc) 10 MG tablet Take 1 tablet (10 mg) by mouth 1 (one) time each day. ARIPiprazole (Abilify) 10 MG tablet ARIPiprazole (Abilify) 5 MG tablet Blood Glucose Monitoring Suppl (PortfoliaStyle freedom lite monitor) w/Device kit USE DIRECTED diclofenac (Voltaren) 75 MG EC tablet EQ Aspirin Adult Low Dose 81 MG EC tablet Take 1 tablet (81 mg) by mouth 1 (one) time each day. FLUoxetine (PROzac) 40 MG capsule Take by mouth 2 (two) times a day. fluticasone (Flonase) 50 MCG/ACT nasal spray Administer 2 sprays into each nostril. FreeStyle Lancets USE DIRECTED FREESTYLE LITE test strip USE 1 STRIP TWICE DAILY TO TEST SUGAR OR DIRECTED hydroCHLOROthiazide (HYDRODiuril) 25 MG tablet Take 1 tablet by mouth daily. 90 tablet 3 lamoTRIgine (LaMICtal) 100 MG disintegrating tablet TAKE 1 TABLET BY MOUTH TWICE DAILY FOR 30 DAYS lisinopril 40 MG tablet Take 1 tablet (40 mg) by mouth 1 (one) time each day. lisinopril 40 MG tablet Take 1 tablet by mouth daily. metFORMIN (Glucophage) 500 MG tablet TAKE 1 TABLET BY MOUTH ONCE DAILY FOR 5 DAYS, THEN 1 TAB TWICEDAILY metFORMIN, MOD, (Glumetza) 500 MG 24 hr tablet Take 1 tablet by mouth 2 (two) times a day with meals. Do not crush, chew, or split. metoprolol succinate XL (Toprol-XL) 100 MG 24 hr tablet Take 1 tablet (100 mg) by mouth 1 (one) time each day. metoprolol tartrate (Lopressor) 100 MG tablet Take 1 tablet by mouth daily. montelukast (Singulair) 10 MG tablet Take 1 tablet (10 mg) by mouth every night. morphine CR (MS Contin) 15 MG 12 hr tablet Take 1 tablet by mouth 2 times a day for 14 days. Do notcrush, chew, or split. 28 tablet 0 morphine CR (MS Contin) 15 MG 12 hr tablet Take 1 tablet by mouth 2 times a day. Do not crush, chew, or split. 60 tablet 0 [START ON 01/31/2025] morphine CR (MS Contin) 15 MG 12 hr tablet Take 1 tablet by mouth 2 times a day. Do not crush, chew, or split. 60 tablet 0 naloxone (Narcan) 4 mg/0.1 mL nasal spray 1. Give 1 spray in nostril for no/slow breathing or cannot wake after opioid use 2. Call 911 3. Repeat in other nostril if symptoms continue Call 911. Give 4mg (1 spray) into one nostril. Repeat every 2-3 minutes as needed, alternating nostrils, until medical assistance arrives. 2 each 1 omeprazole (PriLOSEC) [address] capsule Ozempic, 0.25 or 0.5 MG/DOSE, 2 MG/3ML solution pen-injector INJECT 0.25 MG SUBCUTANEOUSLY ONCE A WEEK promethazine (Phenergan) 12.5 MG tablet traZODone (Desyrel) 50 MG tablet Vraylar 4.5 MG capsule Take 1 capsule by mouth daily. ondansetron ODT (Zofran-ODT) 4 MG disintegrating tablet DISSOLVE 1 TABLET IN MOUTH EVERY 8 HOURS ASNEEDED FOR NAUSEA AND VOMITING (Patient not taking: Reported on 01/11/2025) QUEtiapine (SEROquel) 100 MG tablet Take 2 tablets (200 mg) by mouth 1 (one) time each day. (Patient not taking: Reported on 01/11/2025) simvastatin (Zocor) 10 MG tablet Take 1 tablet (10 mg) by mouth 1 (one) time each day. (Patient nottaking: Reported on 01/11/2025) Vraylar 3 MG capsule Take 1 capsule (3 mg) by mouth 1 (one) time each day. (Patient not taking: Reported on 01/11/2025) Current Facility-Administered Medications Medication Dose Route Frequency Provider Last Rate Last Admin NS IVF 100 mL/hr Intravenous Once Matias Aguilar MD 100 mL/hr at 12/30/21 0918 100 mL/hr at 12/30/21 0918 sodium chloride 0.9 % infusion 100 mL/hr Intravenous Continuous Matias Aguilar MD documented in this encounter Plan of Treatment Upcoming Encounters Date Type Department Care Team (Late st Contact Info) Description 02/27/2025 9:20 AM EDT Office Visit [facility] Inter[facility] Medicine [address] [place] [address] Michi Skelton MD [address] [facility] [address] [place] [id number] 10/05/2025 10:40 AM EDT Office Visit [facility] [address] [place] [address] Kaiden Geiger MD [address] [place] [address] documented as of this encounter Procedures Procedure Name Priority Date/Time Associated Diagnosis Comments [place] ARTHROCENTESIS ASPIR&/INJ MAJOR JT/BURSA W/O US Routine 01/11/2025 3:30 PM EDT Chronic pain of right knee documented in this encounter Results * [place] ARTHROCENTESIS ASPIR&/INJ MAJOR JT/BURSA W/O US (01/11/2025 3:30 PM EDT) Narrative David Fairbanks MD - 01/11/2025 3:30 PM EDT David Fairbanks MD 01/11/2025 5:24 PM Injection - Large Joint: R knee Indications: pain Details: 22 G needle, anterior approach Medications: 15 mg bupivacaine 0.5 %; 30 mg lidocaine 1 %; 80 mg Kenalog-40 40 MG/ML Outcome: tolerated well, no immediate complications Procedure, treatment alternatives, risks and benefits explained, specific risks discussed (Risks include but are not limited to pain, bleeding, infection, failure to relieve symptoms). Consent was given by the patient. Immediately prior to procedure a time out was called to verify the correct patient, procedure, equipment, sales support specialist and site/side marked as required. Patient was prepped and draped in the usual sterile fashion. us David Fairbanks MD IN CLINIC/BEDSIDE ORDERABLES Final Result * New Patient: XR Knee (Lateral / Browns / Tunnel / AP Standing with Marker) [...] Melvin Gómez MD on 01/11/2025 2:42 PM David Fairbanks MD IMG XR PROCEDURES Final Resu lt documented in this encounter Visit Diagnoses Diagnosis Chronic pain of right knee- Primary Chronic pain of right knee documented in this encounter Administered Medications Inactive Administered Medications - up to 3 most recent administrations Medication Order MAR Action Action Date Dose Rate Site bupivacaine (Marcaine) 0.5 % injection 15 mg 15 mg, Injection, Once PRN Procedure, 1 dose, Starting on Rula 01/11/25 at 1530, Until Rula 01/11/25 at 1530, RoutineIndications:Chronic pain of right knee Given 01/11/2025 3:30 PM EDT 15 mg lidocaine (Xylocaine) 1 % injection 30 mg 30 mg, Intra-articular, Once PRN Procedure, 1 dose, Starting on Rula 01/11/25 at 1530, Until Rula 01/11/25 at 1530, RoutineIndications:Chronic pain of right knee Given 01/11/2025 3:30 PM EDT 30 mg triamcinolone acetonide (Kenalog-40) injection 80 mg 80 mg, Intra-articular, Once PRN Procedure, 1 dose, Starting on Rula 01/11/25 at 1530, Until Rula 01/11/25 at 1530, RoutineIndications:Chronic pain of right knee Given 01/11/2025 3:30 PM EDT 80 mg documented in this encounter Additional Health Concerns Infection Onset Date Last Indicated Resolved Time MRSA 07/15/2022 07/15/2022 Assessment Noted Time A fall risk assessment has been complete d for the patient 01/03/2025 2:27 PM EDT A Body Mass Index follow-up plan has been documented for the patient 01/11/2025 5:24 PM EDT documented as of this encounter Care Teams Supervisor Boiler Repair Relationship Specialty Start Date End Date Brian Morris APRN [address] [place] [id number] PCP - General 09/23/22 documented as of this encounter
--- OUTSIDE RECORDS SUMMARY | 2025-02-20 08:50 | XMS_ITS | Encounter Summary ---
Author Organization [facility] Address [address] [place] [address] Care Team Providers Care Regional Truck Driver Name Role Phone Brian Morris APRN Primary Care Provider [phone] Reason for Referral * Other Medical (Routine) - Pending Review Specialty Diagnoses / Procedures Referred By Jason guadalupe Referred To Contact Orthopaedic Surgery Diagnoses Arthritis of right knee Procedures Large Joint Injection David Fairbanks MD [address] [facility] [address] [place] [address] Phone: tel: fax: Referral ID Status Reason Start Date Expiration Date V isits Requested Visits Authorized [id number] Pending Review 02/20/2025 08/22/2026 1 1 Reason for Visit * Reason Comments Follow-up Encounter Details Date Type Department Care Team (Late st Contact Info) Description 02/20/2025 8:50 AM EDT Office Visit Medical Office Building [facility] [address] , [address] [place] [address] David Fairbanks MD [address] [place] [address] Arthritis of right knee (Primary Dx) Social History [...] Sign Reading Time Taken Comments Blood Pressure 130/88 02/20/2025 8:30 AM EDT Pulse 87 02/20/2025 8:30 AM EDT Temperature - - Respiratory Rate - - Oxygen Saturation 97% 02/20/2025 8:30 AM EDT Inhaled Oxygen Concentration - - Weight 96.6 kg (213 lb) 02/20/2025 8:30 AM EDT Height 167.6 cm (5' 6 ) 02/20/2025 8:30 AM EDT Body Mass Index 34.38 02/20/2025 8:30 AM EDT documented in this encounter Miscellaneous Notes * Progress Notes - Zain Araiza MD - 02/20/2025 8:50 AM EDT Images from the original note were not included. Subjective: Juanjose Borden is a 54 y.o. y/o male who comes in today for repeat evaluation of right knee pain. Patient has a history of multiple right knee surgeries, genicular artery embolization, and L3/L4 SCS. The patient localizes the pain/problem to the anterior/medial aspect of the right knee. The patient has had the problem for several years. The patient reports the pain as Dull, Aching, and Sharp.The patient reports the pain as getting progressively worse to where he is having to use opioid medication to help with pain. He last received a steroid injection on 01/11 that provided about one week of pain relief with was less than 50% improvement though is no longer helpful after building the steps to his house. The pain/problem is worse with all activity. [...] Types: Cigarettes Quit date: 2002 Years since quittin.7 Passive exposure: Never Smokeless tobacco: Never Vaping Use Vaping status: Never Used Substance and Sexual Activity Alcohol use: Not Currently Comment: Alcoholic Drinks/day: Stopped Drinking Alcohol Drug use: Yes Comment: CBD Sexual activity: Defer Other Topics Concern Not on file Social History Narrative Not on file Social Drivers of Health Financial Resource Strain: Low Risk (08/16/2023) Received from [facility] ([place], [place], [place], [place] Financial Resource Strain : 0 Food Insecurity: No Food Insecurity (08/16/2023) Received [place] [facility] [place] Food Insecurity : 0 : 0 Transportation Needs: No Transportation Needs (09/16/2023) Received [place] [facility] [place] Transportation Needs : 2 Recent Concern: Transportation Needs - Unmet Transportation Needs (08/16/2023) Received [place] [facility] [place] PRAPARE - Transportation Lack of Transportation (Medical): Yes Lack of Transportation (Non-Medical): Not on file Physical Activity: Insufficiently Active (08/16/2023) Received [place] [facility] [place] Physical Activity Number of minutes of exercise per week : 120 Stress: No Stress Concern Present (08/16/2023) Received from [facility] [place] Stress Stress means a situation in which a person feels tense, restless, nervous, or anxious, or is unableto sleep at night because his or her mind is troubled all the time. Do you feel this kind of str...: Not at all Social Connections: Low Risk (08/16/2023) Received from [facility] ([place] Family and Community Support : 0 : 0 Intimate Partner Violence: Unknown (03/17/2023) Received from [facility] Abuse Screen Unsafe at Home or Work/School: Not on file Feels Threatened by Someone?: Not on file Does Anyone Keep You from Contacting Others or Doint Things Outside the Home?: Not on file Physical Sign of Abuse Present: Not on file Housing Stability: Low Risk (08/25/2023) Received [place] [facility] [place] Housing Stability : 0 : 0 Recent Concern: Housing Stability - High Risk (08/16/2023) Received from [facility] [place] Housing Stability : 0 : 0 [...] asnoted above. Objective: Body mass index is 34.38 kg/m??. 09/07/2024 10:39 AM 09/07/2024 11:17 AM 09/22/2024 1:25 PM 11/07/2024 10:03 AM 01/03/2025 2:30 PM 01/11/2025 2:45 PM 02/20/2025 8:30 AM Vitals Systolic 140 148 137 135 126 106 130 Diastolic 110 103 86 89 90 78 88 Heart Rate 77 88 85 90 73 89 87 Temp 36.3 C 36.6 C 36.4 C 36.4 C Resp 14 18 18 18 Height (cm) 167.6 cm 167.6 cm 167.6 cm 167.6 cm 167.6 cm Weight (kg) 90.719 kg 96.163 kg 93.895 kg 90.719 kg 91.3 kg 96.616 kg BMI 32.28 kg/m2 34.22 kg/m2 33.41 kg/m2 32.28 kg/m2 32.49 kg/m2 34.38 kg/m2 BSA (m2) 2.06 m2 2.12 m2 2.09 m2 2.06 m2 2.06 m2 2.12 m2 Visit Report Report Report Report Report Report Report Report Knee Pain location: Anterior Skin: Well healed midline incision ROM: 0-120 Instability: Stable to varus/valgus Alignment: Neutral Effusion: Minimal Quadriceps strength level: Fair My independent interpretation of radiographic testing shows: No new XR obtained. Notes reviewed: pain management Results of tests reviewed: previous radiographs Assessment and plan: No diagnosis found. No orders of the defined types were placed in this encounter. No follow-ups on file. Discussed in depth possible further management options. At this time we still would not recommend conversion to total knee arthroplasty given the previous radiographic findings that has tibial femoral joint space is well-maintained. Given the mild pain that he continues to be in not certain that that we would improve his pain and symptoms with conversion and there is always the risk that we couldmake him worse specifically if he had developed periprosthetic joint infection. Alternatively we discussed other treatment options to include a repeat injection into the knee. We discussed trying a gel injection as he did not see significant relief from the steroid injection. We will also prescribehim some compound pain cream to see if this helps his symptoms. We will have him follow-up once approved from the gel injection. This problem is a chronic problem with some progression . Minor procedure risk factors were discussed, (Injection site pain, infection, inflammation) and decision was made for procedure. Rx management per plan. 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 Rosario 11/25/2022 Hyperlipidemia Hypertension Joint pain MRSA carrier pt states MRSA showed up in nasal swab 2022 at [facility], with interventional pain clinic PONV (postoperative nausea and vomiting) once from eating too soon [2] Past Surgical History: Procedure Laterality Date ARTHROPLASTY N/A Primary Repair Of Knee Ligament Cruciate Anterior from [facility] CARPAL TUNNEL RELEASE CHOLECYSTECTOMY JOINT REPLACEMENT KNEE SURGERY N/A Knee Surgery from [facility] KNEE SURGERY 9 knee surgeries, last 2012 approx LASER ABLATION Right knee NEPHRECTOMY N/A Donor Nephrectomy from [facility] ORTHOPEDIC SURGERY OTHER SURGICAL HISTORY N/A Surgery Testis Excision Of Local Lesion from [facility] OTHER SURGICAL HISTORY N/A Knee Arthroscopy from [facility] TOTAL SHOULDER ARTHROPLASTY TRIGGER POINT INJECTION [3] No Known Allergies [4] Current Outpatient Medications Medication Sig Dispense Refill amLODIPine (Norvasc) 10 MG tablet Take 1 tablet (10 mg) by mouth 1 (one) time each day. ARIPiprazole (Abilify) 10 MG tablet ARIPiprazole (Abilify) 5 MG tablet Blood Glucose Monitoring Suppl (FreeStyle freedom lite [...] crush, chew, or split. 60 tablet 0 morphine CR (MS Contin) 15 [...] AND VOMITING (Patient not taking: Reported on 02/20/2025) QUEtiapine (SEROquel) 100 MG tablet Take 2 tablets (200 mg) by mouth 1 (one) time each day. (Patient not taking: Reported on 02/20/2025) simvastatin (Zocor) 10 MG tablet Take 1 tablet (10 mg) by mouth 1 (one) time each day. (Patient nottaking: Reported on 02/20/2025) Vraylar 3 MG capsule Take 1 capsule (3 mg) by mouth 1 (one) time each day. (Patient not taking: Reported on 02/20/2025) Current Facility-Administered Medications Medication Dose Route Frequency Provider Last Rate Last Admin NS IVF 100 mL/hr Intravenous Once Matias Aguilar MD 100 mL/hr at 12/30/21917 100 mL/hr at 12/30/21917 sodium chloride 0.9 % infusion 100 mL/hr Intravenous Continuous Matias Aguilar MD Cosigned by David Fairbanks MD at 02/20/2025 9:46 AM EDT Associated attestation - David Fairbanks MD - 02/20/2025 9:46 AM EDT Images from the original note were not included. I saw and evaluated the patient with the resident/fellow. I discussed the case with the resident/fellow and agree with the findings and plan as documented. Subjective: Juanjose Borden is a 54 y.o. y/o male who comes in today for right knee pain. He reports less than 50% relief from the recent injection. I have reviewed and updated the patient's [...] asnoted above. Objective: Body mass index is 34.38 kg/m??. 09/07/2024 10:39 AM 09/07/2024 11:17 AM 09/22/2024 1:25 PM 11/07/2024 10:03 AM 01/03/2025 2:30 PM 01/11/2025 2:45 PM 02/20/2025 8:30 AM Vitals Systolic 140 148 137 135 126 106 130 Diastolic 110 103 86 89 90 78 88 Heart Rate 77 88 85 90 73 89 87 Temp 36.3 C 36.6 C 36.4 C 36.4 C Resp 14 18 18 18 Height (cm) 167.6 cm 167.6 cm 167.6 cm 167.6 cm 167.6 cm Weight (kg) 90.719 kg 96.163 kg 93.895 kg 90.719 kg 91.3 kg 96.616 kg BMI 32.28 kg/m2 34.22 kg/m2 33.41 kg/m2 32.28 kg/m2 32.49 kg/m2 34.38 kg/m2 BSA (m2) 2.06 m2 2.12 m2 2.09 m2 2.06 m2 2.06 m2 2.12 m2 Visit Report Report Report Report Report Report Report Report My independent interpretation of radiographic testing shows: Bilateral knee x- rays have been reviewed. Again fairly preserved tibial femoral joint space. Patellofemoral implants are otherwise still in good position. Notes reviewed: pain management Results of tests reviewed: previous radiographs Assessment and plan: Arthritis of right knee Orders Placed This Encounter Large Joint Injection No follow-ups on file. He had a lengthy discussion with his family here today as well as the patient. Given the lack of good response to the injection would be somewhat concerned about overall relief from proceeding with total knee arthroplasty. We discussed when he get less than 50% relief patient is still often times are having continued pain after knee replacement. We would also be somewhat challenging to safely control as pain after surgery given his current oral opioid use. Thus we discussed alternative options including gel injections. He would be interested in proceeding with a gel injection. We will also prescribed a topical pain gel from the compound pharmacy. Main risk is skin irritation. This problem is a chronic problem with some progression . Minor procedure risk factors were discussed, (Injection site pain, infection, inflammation) and decision was made for procedure. Rx management per plan. documented in this encounter Plan of Treatment Upcoming Encounters Date Type Department Care Team (Late st Contact Info) Description 02/27/2025 9:20 AM EDT Office Visit [facility] Interventional Pain Medicine [address] [place] [address] Michi Skelton MD [address] [facility] [address] [place] [id number] 10/05/2025 10:40 AM EDT Office Visit [facility] [address] [place] [address] Kaiden Geiger MD [address] [place] [address] Scheduled Orders Name Type Priority Associated Diagnoses Orde r Schedule Large Joint Injection Procedures Routine Arthritis of right knee Expected: 03/06/2025, Expires: 08/24/2026 documented as of this encounter Visit Diagnoses Diagnosis Arthritis of right knee- Primary documented in this encounter Additional Health Concerns Infection Onset Date Last Indicated Resolved Time MRSA 07/15/2022 07/15/2022 Assessment Noted Time A fall risk assessment has been complete d for the patient 02/20/2025 8:30 AM EDT A Body Mass Index follow-up plan has been documented for the patient 02/20/2025 9:46 AM EDT documented as of this encounter Care Teams Regional Truck Driver Relationship Specialty Start Date End Date Brian Morris APRN [address] [place] [address] PCP - General 09/23/22 documented as of this encounter
--- NOTE | 2025-02-24 12:52 | XR_ITS ---
PROCEDURE INFORMATION: Exam: XR Left Wrist Exam date and time: 02/24/2025 12:57 PM Age: 54 years old Clinical indication: Pain; Wrist; Left; Additional info: Wrist pain, atraumatic TECHNIQUE: Imaging protocol: Radiologic exam of the left wrist. Views: 3 or more views. COMPARISON: CR XR HAND LT MIN 3V 09/11/2024 9:10 AM FINDINGS: Bones/joints: Minimal degenerative joint space narrowing of the triscaphe joint. No acute fracture or dislocation. Soft tissues: Normal. IMPRESSION: No acute fracture or dislocation.
--- NOTE | 2025-02-24 12:53 | ED_ITS ---
Discharge Plan Disposition Patient Disposition: Home, Self-Care Prescriptions Prescriptions: No Action amlodipine [Norvasc] 10 mg tablet 10 mg PO DAILY Qty: 90 3RF Rx Instructions: Take 1 tablet by mouth once daily lisinopril 40 mg tablet 40 mg PO DAILY Qty: 90 3RF metoprolol succinate 100 mg tablet extended release 24 hr See Rx Instructions .ROUTE .COMPLEX Qty: 90 3RF Dose Instruction: Take 1 tablet by mouth once daily Rx Instructions: Take 1 tablet by mouth once daily diclofenac sodium 1 % gel 2 g topical QID Qty: 100 2RF Rx Instructions: apply to single elbow, wrist or hand; for hand includes palm/fingers/back of hand fluoxetine 40 mg capsule 40 mg PO BID Patient Comments: TAKE 1 CAPSULE BY MOUTH ONCE DAILY (DME) blood-glucose meter [Blood Glucose Monitoring] Kit See Rx Instructions MISCELLANEOUS Qty: 1 0RF Rx Instructions: As directed (DME) Accu-Chek Guide test strips Strip See Rx Instructions .ROUTE .MEDSUPPLY Qty: 10 2RF Rx Instructions: As directed (DME) lancets [Accu-Chek Softclix Lancets] Misc See Rx Instructions .ROUTE .MEDSUPPLY Qty: 100 2RF Rx Instructions: As directed (DME) blood-glucose meter [Accu-Chek Guide Glucose Meter] Misc See Rx Instructions .ROUTE .MEDSUPPLY Qty: 1 0RF Rx Instructions: As directed naloxone [Narcan] 4 mg/actuation spray,non-aerosol 4 mg intranasal NEEDED PRN (Reason: Opioid Overdose) Patient Comments: ADMINISTER A SINGLE SPRAY IN ONE NOSTRIL UPON SIGNS OF OPIOID OVERDOSE. CALL 911. REPEAT AFTER 3 MINUTES IF NO RESPONSE. fluticasone propionate [Flonase Allergy Relief] 50 mcg/actuation spray,suspension 2 spray intranasal DAILY 90 Days Qty: 16 2RF Rx Instructions: administer into each nostril hydrochlorothiazide 25 mg tablet 25 mg PO DAILY trazodone 50 mg tablet 50 mg PO DAILY Qty: 30 2RF (DME) FreeStyle Lite Strips Strip See Rx Instructions .ROUTE .COMPLEX Qty: 50 3RF Dose Instruction: USE 1 STRIP TWICE DAILY TO TEST SUGAR OR DIRECTED Rx Instructions: USE 1 STRIP TWICE DAILY TO TEST SUGAR OR DIRECTED (DME) lancets [FreeStyle Lancets] 28 gauge misc See Rx Instructions .ROUTE .COMPLEX Qty: 100 0RF Dose Instruction: USE DIRECTED Rx Instructions: USE DIRECTED metformin 500 mg tablet See Rx Instructions .ROUTE .COMPLEX Qty: 180 3RF Dose Instruction: Take 1 tablet by mouth twice daily Rx Instructions: Take 1 tablet by mouth twice daily Ozempic 0.25 mg or 0.5 mg (2 mg/3 mL) pen injector See Rx Instructions .ROUTE .COMPLEX Qty: 3 3RF Dose Instruction: INJECT 0.5 MG SUBCUTANEOUSLY ONCE A WEEK Rx Instructions: INJECT 0.5 MG SUBCUTANEOUSLY ONCE A WEEK omeprazole 20 mg capsule,delayed release(DR/EC) 20 mg PO DAILY Qty: 90 3RF Rx Instructions: Take 1 capsule by mouth once daily (DME) lancets [OneTouch Delica Plus Lancet] 33 gauge misc See Rx Instructions MISCELLANEOUS Rx Instructions: Test sugar twice daily or as directed aspirin 81 mg tablet,delayed release (DR/EC) 81 mg PO DAILY Rx Instructions: Take 1 tablet by mouth once daily morphine 15 mg Tablet 15 mg PO BID PRN (Reason: Pain) Referrals Follow up/Referrals: Brian Morris APRN [Primary Care Provider, Family Practice] - See instructions Trevin Griffin DO [Staff Physician, Orthopedics] - See instructions Activity Restrictions/Add. Instructions Additional Instructions/Restrictions: Call Dr. Griffin's office for a follow-up appointment. Take Tylenol and ibuprofen as needed for pain. Please return to the ER with any new, concerning, or wor sening symptoms. Clinical Impressions Clinical Impression: Acute pain of left wrist Print Language Print Language: Mohawk Discharge ED Provider: Smith Farris General Adult HPI General Chief complaint: PAIN Stated complaint: Pain in L Wrist - Non Accident Injury Time Seen by Provider: 02/24/25 12:52 Mode of Arrival: Ambulatory Source of Information: Patient Limitations: No Limitations History of Present Illness HPI narrative: 54-year-old male who presents with atraumatic left wrist pain. States that it came on out of nowhere. Denies any injury. 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 States that he is having difficulty with range of motion at the wrist. No fever Related Data Home Medications ?Medication ?Instructions ?Recorded ?Confirmed fluoxetine 40 mg capsule 40 mg PO BID Depression 05/0 6/21 07/16/25 lancets 33 gauge (OneTouch Delica 02/04/22 12/20/24 Plus Lancet) naloxone 4 mg/actuation nasal 4 mg intranasal NEEDE D PRN 02/10/24 12/20/24 spray (Narcan) Opioid Overdose aspirin 81 mg tablet,delayed 81 mg PO DAILY 07/14/24 0 12/20/24 release morphine 15 mg immediate release 15 mg PO BID PRN Pain 09/22/24 12/20/24 tablet hydrochlorothiazide 25 mg tablet 25 mg PO DAILY 12/20/24 Previous Rx's ?Medication ?Instructions ?Recorded blood sugar diagnostic (Accu-Chek #10 ea 09/09/23 Guide test strips) blood-glucose meter (Accu-Chek #1 ea 09/09/23 Guide Glucose Meter) blood-glucose meter (Blood Glucose #1 ea 09/09/23 Monitoring kit) lancets (Accu-Chek Softclix #100 ea 09/09/23 Lancets) blood sugar diagnostic (FreeStyle #50 ea 12/29/23 Lite Strips) lancets 28 gauge (FreeStyle #100 ea 01/25/24 Lancets) fluticasone propionate 50 2 spray intranasal DAILY 90 days 02/10/24 mcg/actuation nasal #16 grams spray,suspension (Flonase Allergy Relief) amlodipine 10 mg tablet (Norvasc) 10 mg PO DAILY #90 t abs 09/07/24 lisinopril 40 mg tablet 40 mg PO DAILY #90 tabs 08/29 metoprolol succinate 100 mg See Rx Instructions .Route 09/07/24 tablet,extended release 24 hr .COMPLEX #90 tabs diclofenac sodium 1 % topical gel 2 g topical QID #100 grams 09/11/24 trazodone 50 mg tablet 50 mg PO DAILY #30 tabs 03/01 metformin 500 mg tablet See Rx Instructions .Route 0 10/31/24 .COMPLEX #180 tabs semaglutide 0.25 mg or 0.5 mg (2 See Rx Instructions . Route 11/08/24 mg/3 mL) subcutaneous pen injector .COMPLEX #3 mL (Ozempic) omeprazole 20 mg capsule,delayed 20 mg PO DAILY #90 ca ps 12/24/24 release Allergies Allergy/AdvReac Type Severity Reaction Status Date / Time No Known Drug Allergies Allergy Unknown Unknown Verified 12/20/24 13:46 allergy reaction [facility] Disclaimer: The information contained in this section may have been updated after the patient was seen, as this information can be updated by other users. Medical History History of trigger finger Neurostimulator device in situ Kidney function abnormal Acute insomnia Family history of asthma Allergic rhinitis KARLEY (obstructive sleep apnea) Diabetes HLD (hyperlipidemia) BMI 33.0-33.9,adult Right knee pain Hypertension Surgical History History of kidney donation History of carpal tunnel release of both wrists History of partial knee replacement Right Knee Hx of cholecystectomy Hx of repair of right rotator cuff Family History Other Cancer Coronary artery disease Diabetes Heart attack Stroke Substance abuse Social History Smoking Status: Former smoker second hand exposure: No alcohol intake: never substance use type: former substance user and marijuana current occupational status: employed and disabled Travel in the last 8 weeks?: None household members: spouse and family housing: house marital status: caffeine: Yes Have you lived/traveled outside US in past 30 days?: No Contact w/someone who lives/traveled outside US past 30 days?: No Exposure to someone with infectious disease in past 14 days?: No Do you have a fever (greater than 100.4 F or 38 C)?: No Have you tested positive for COVID-19?: No Exposed to someone with COVID-19 in past 14 days?: No Do you have a sore throat?: No Do you have a cough?: No Do you have any weakness?: No Do you have any diarrhea?: No Are you experiencing any unusual bleeding?: No Do you have any muscle aches/pain?: No Do you have any abdominal pain?: No Are you experiencing loss of taste or smell?: No Other Medical History Have you received the Flu Vaccine for this season: Yes Have you received the Pneumonia Vaccine: No ROS Obtained: Yes All systems reviewed & no additional complaints except as documented Physical Exam General General appearance: alert and in no apparent distress Head Head exam: atraumatic Eye Eye exam: Present normal appearance, PERRL and EOMI Neck Neck exam: Present normal inspection and full ROM Chest Chest inspection: Present symmetric chest wall rise Respiratory Respiratory exam: Present normal lung sounds bilaterally; Absent respiratory distress Cardiovascular Cardiovascular exam: Present regular rate and normal rhythm Abdominal Exam Abdominal exam: Present soft; Absent distention Extremities Exam Extremities exam: Present other (L wrist: No deformity. Mild tenderness on the dorsal aspect of the wrist. No significant swelling. Intact passive range of motion with flexion and extension. Strength intact. Neurovascularly intact to the median/ulnar/radial nerve distributions.) Neurological Exam Neurological exam: Present alert and oriented X3 Psychiatric Psychiatric exam: Present normal affect and normal mood Skin Skin exam: Present warm and dry Medical Decision Making Medical Records Medical records reviewed: Yes I reviewed the patient's medical records. Screening: Per USPSTF and CDC recommendations, given the prevalence of disease in our region, it is our hospital?s policy to screen for HIV and viral Hepatitis for all patients aged 18 and over and those with ongoing risk factors. [place] Inquiry Pt receiving controlled substance: No Vital Signs: 02/24/25 12:56 Temperature 97.9 F Temperature Source Oral Pulse Rate [Left] 84 Respiratory Rate 17 Blood Pressure [Left Arm] 121/71 Blood Pressure Mean [Left Arm] 87 Blood Pressure Source [Left Arm] Automatic Cuff Blood Pressure Position [Left Arm] Sitting 02 Sat by Pulse Oximetry 97 Oxygen Delivery Method Room Air Orders (Tests/Meds): ED MEDICATIONS Discontinued Medications Generic Name Dose Route Start Last Admin Trade Name Freq PRN Reason Stop Dose Admin Ibuprofen 400 mg 02/24/25 12:52 02/24/25 13:00 Ibuprofen 400 Mg Tablet PO 02/24/25 12:53 400 mg ONCE ONE Administration ORDERS Category Date Time Status Wrist XR left minimum 3 views [XR wrist LT min 3V] Stat Exams 02/24/25 12:52 Taken Medical Decision Narrative: This is a 54-year-old male who presents with atraumatic left wrist pain. On arrival, patient is afebrile, hemodynamically stable, nontoxic-appearing. Has full range of motion intact to the left wrist with no significant tenderness or swelling. Differential diagnose includes but is not limited to fracture, gout, septic arthritis, osteoarthritis, ligamentous or muscular injury. Low clinical suspicion for infectious or inflammatory arthritis given reassuring exam. Will obtain plain films and administer Tylenol/ibuprofen. X-ray of the left wrist independently interpreted by me, revealing no acute osseous pathology. Gave patient information to call Dr. Griffin's office for a follow-up appointment. Ultimately discharged in stable condition. He also noted that he has been archery hunting more recently lately and he thinks this might be related. Critical Care Critical Care Time Critical Care Time: No
[2025-02-24 12:56] VITALS: BP 121/71; PULSE 84; RESP 17; TEMP 36.6; O2SAT 97; BMI 34.3
--- OUTSIDE RECORDS SUMMARY | 2025-02-24 12:57 | XMS_ITS | Encounter Summary ---
Author Organization Healthcare Address [address] [place] [address] Care Team Providers Care Materials Inspector Name Role Phone Brian Morris Alex MAT Primary Care Provider [phone] Encounter Details Date Type Department Care Team (Latest Contact Info) Description 01/11/2025 Travel Social History Tobacco Use Types Packs/Day [...] Description 02/27/2025 9:20 AM EDT Office Visit [facility] Interventional Pain Medicine [address] [place] [address] Michi Skelton MD [address] [facility] [address] [place] [address] 10/05/2025 10:40 AM EDT Office Visit [facility] [address] [place] [address] Kaiden Geiger MD [address] [place] [phone] documented as of this encounter Visit [...] documented as of this encounter Care Teams Materials Inspector Relationship Specialty Start Date End Date Brian Morris APRN [address] [place] [id number] PCP - General 09/23/22 documented as of this encounter
--- OUTSIDE RECORDS SUMMARY | 2025-02-24 12:57 | XMS_ITS | Encounter Summary ---
Author Organization Healthcare Address [address] [place] [address] Care Team Providers Care Box Fabricator Name Role Phone Brian Morris Alex MAT Primary Care Provider [phone] Encounter Details Date Type Department Care Team (Latest Contact Info) Description 01/03/2025 Travel Social History Tobacco Use Types Packs/Day [...] Description 02/27/2025 9:20 AM EDT Office Visit [facility] Interventional Pain Medicine [address] [place] [address] Michi Skelton MD [address] [facility] [address] [place] [address] 10/05/2025 10:40 AM EDT Office Visit [facility] [address] [place] [address] Kaiden Geiger MD [address] [place] [phone] documented as of this encounter Visit [...] documented as of this encounter Care Teams Box Fabricator Relationship Specialty Start Date End Date Brian Morris APRN [address] [place] [id number] PCP - General 09/23/22 documented as of this encounter
--- OUTSIDE RECORDS SUMMARY | 2025-02-24 12:57 | XMS_ITS | Encounter Summary ---
Author Organization [facility] Address [address] [place] [address] Care Team Providers Care Stockkeeper Name Role Phone Brian Morris APRN Primary Care Provider [phone] Reason for Visit * Reason Comments Med Refill Encounter Details Date Type Department Care Team (Late st Contact Info) Description 05/03/2024 Refill [facility] Interventional Pain Medicine [address] [place] [phone] Sylvie Rico [address] [place], [place] [phone] Social History Tobacco Use Types Packs/Day Years [...] Description 02/27/2025 9:20 AM EDT Office Visit [facility] Interventional Pain Medicine [address] [place] [phone] Michi Skelton MD [address] [facility] [address] [place] [phone] 10/05/2025 10:40 AM EDT Office Visit [facility] [address] [place] [address] Kaiden Geiger MD [address] [place] [address] documented as of this encounter [...] documented as of this encounter Care Teams Stockkeeper Relationship Specialty Start Date End Date Brian Morris APRN [address] [place] [address] [place] [id number] PCP - General 09/23/22 documented as of this encounter
--- OUTSIDE RECORDS SUMMARY | 2025-02-24 12:57 | XMS_ITS | Clinical Summary ---
[facility] Address [address] [place] [id number] Care Team Providers Care Jig Bore Operator Name Role Phone Unavailable Primary Care Provider Unavailabl e Social History Tobacco Use Types Packs/Day Years Used Date Smoking Tobacco: Never Assessed Abuse Screen Answer Date Recorded Unsafe at Home or Work/School Not on file Feels Threatened by Someone? Not on file 04/2023 Does Anyone Keep You from Co ntacting Others or Doint Things Outside the Home? Not on file 03/17/2023 Physical Sign of Abuse Present Not on file 1 Housing Stability Answer Date Recorded Current Living Arrangements Not on file 03/07 Potentially Unsafe Housing Conditions Not on chinyere e 03/17/2023 Family and Community Support Answer Adán e Recorded Help with Day-to-Day Activities Not on file 03/17/2023 Lonely or Isolated Not on file 03/17/2023 Employment Answer Date Recorded Do you want help finding or keeping work or a dasha b? Not on file 03/17/2023 Disabilities Answer Date Recorded Concentrating, Remembering, or Making Decisions Difficulty Not on file 03/17/2023 Doing Errands Independently Difficulty Not on fi le 03/17/2023 Education Answer Date Recorded Help with school or training? Not on file Preferred Language Not on file 03/17/2023 Sex and Gender Information Value Date Recorded Sex Assigned at Not on file Legal Sex Male 11:59 AM EDT Gender Identity Not on file Sexual Orientation Not on file Last Filed Vital Signs Vital Sign Reading Time Taken Comments Blood Pressure 112/60 05/11/2014 8:48 AM EST Pulse - - Temperature - - Respiratory Rate - - Oxygen Saturation - - Inhaled Oxygen Concentration - - Weight 90.7 kg (200 lb) 05/11/2014 8:48 AM EST Height 170.2 cm (5' 7 ) 05/11/2014 8:48 AM EST Body Mass Index 31.32 05/11/2014 8:48 AM EST Plan of Treatment Health Maintenance Due Date Last Done Comments ANNUAL PHYSICAL 1972 HEPATITIS C SCREENING 1972 TDAP/TD VACCINES (1 - Tdap) 12/18/1991 COLOGUARD 2017 COLON CANCER SCREENING 5 YEAR SIGMOIDOSCOPY 2017 COLONOSCOPY 2017 [address]AL CANCER SCREENING 2017 CT COLONOGRAPHY 2017 FECAL OCCULT BLOOD TEST 2017 FIT Testing (1 year) 2017 Pneumococcal Vaccine 50+ (1 of 1 - PCV) 2022 ZOSTER VACCINE (1 of 2) 2022 INFLUENZA VACCINE 01/05/2025
--- OUTSIDE RECORDS SUMMARY | 2025-02-24 12:57 | XMS_ITS | Encounter Summary ---
Author Organization Healthcare Address [address] [place] [address] Care Team Providers Care Manager Radio Name Role Phone Brian Morris Alex MAT Primary Care Provider [phone] Encounter Details Date Type Department Care Team (Latest Contact Info) Description 02/20/2025 Travel Social History Tobacco Use Types Packs/Day [...] Description 02/27/2025 9:20 AM EDT Office Visit [facility] Interventional Pain Medicine [address] [place] [address] Michi Skelton MD [address] [facility] [address] [place] [address] 10/05/2025 10:40 AM EDT Office Visit [facility] [address] [place] [address] Kaiden Geiger MD [address] [place] [phone] documented as of this encounter Visit [...] as of this encounter Care Teams Manager Radio Relationship Specialty Start Date End Date Brian Morris APRN [address] [place] [id number] PCP - General 09/23/22 documented as of this encounter
--- OUTSIDE RECORDS SUMMARY | 2025-02-24 12:57 | XMS_ITS | Encounter Summary ---
Author Organization Healthcare Address [address] [place] [address] Care Team Providers Care Java Application Developer Name Role Phone Brian Morris APRN Primary Care Provider [phone] Encounter Details Date Type Department Care Team (Late st Contact Info) Description 01/18/2024 Orders Only External Location [address] [place] [phone] Brian Morris APRN [address] [place] [id number] Social History Tobacco Use Types Packs/Day Years [...] Description 02/27/2025 9:20 AM EDT Office Visit [facility] Interventional Pain Medicine [address] [place] [phone] Michi Skelton MD [address] [facility] [address] [place] [phone] 10/05/2025 10:40 AM EDT Office Visit [facility] [address] [place] [address] Kaiden Geiger MD [address] [place] [phone] documented as of this encounter [...] documented as of this encounter Care Teams Java Application Developer Relationship Specialty Start Date End Date Brian Morris APRN [address] [place] [address] [place] [address] PCP - General 09/23/22 documented as of this encounter
--- OUTSIDE RECORDS SUMMARY | 2025-02-24 12:57 | XMS_ITS | Encounter Summary ---
Author Organization [facility] Address [address] [place] [id number] Care Team Providers Care Periodontist Name Role Phone Alexandra Brian Johnson APRN Primary Care Provider [phone] Reason for Visit * Reason Comments Med Refill Encounter Details Date Type Department Care Team (Late st Contact Info) Description 06/18/2023 Refill [facility] Interventional Pain Medicine [address] [place] [phone] Tony Priest, DO [address] [place] [address] Chronic pain of right knee; Chronic pain [...] Description 02/27/2025 9:20 AM EDT Office Visit [facility] Interventional Pain Medicine [address] [facility] [place] [address] Michi Skelton MD [address] [facility] [address] [place] [address] 10/05/2025 10:40 AM EDT Office Visit [facility] [address] [place] [address] Kaiden Geiger MD [address] [place] [phone] documented as of this encounter [...] documented as of this encounter Care Teams Periodontist Relationship Specialty Start Date End Date Brian Morris APRN [address] [place] [address] [place] [address] PCP - General 09/23/22 documented as of this encounter
--- OUTSIDE RECORDS SUMMARY | 2025-02-24 12:57 | XMS_ITS | Clinical Summary ---
Author Organization [facility] Address [address] [place] [address] Care Team Providers Care Software Development Manager Name Role Phone Brian Morris APRN Primary Care Provider [phone] Allergies No known active allergies Medications FLUoxetine (PROzac) 40 MG capsule Take by mouth 2 (two) times a day. 12/01/19 18 Active omeprazole (PriLOSEC) [address] capsule 04/20/20 21 Active lisinopril 40 MG tablet Take 1 tablet (40 mg) by mouth 1 (one) time each day. 09/11/19 23 Active QUEtiapine (SEROquel) 100 MG tablet Take 2 tablets (200 mg) by mouth 1 (one) time each day. 01/07/20 23 Active ondansetron ODT (Zofran-ODT) 4 MG disintegrating tablet DISSOLVE 1 TABLET IN MOUTH EVERY 8 HOURS NEEDED FOR NAUSEA AND VOMITING 05/07/20 23 Active montelukast (Singulair) 10 MG tablet Take 1 tablet (10 mg) by mouth every night. 07/04/19 24 Active promethazine (Phenergan) 12.5 MG tablet 12/05/19 23 Active amLODIPine (Norvasc) 10 MG tablet Take 1 tablet (10 mg) by mouth 1 (one) time each day. 07/27/19 24 Active lamoTRIgine (LaMICtal) 100 MG disintegrating tablet TAKE 1 TABLET BY MOUTH TWICE DAILY FOR 30 DAYS Active metFORMIN (Glucophage) 500 MG tablet TAKE 1 TABLET BY MOUTH ONCE DAILY FOR 5 DAYS, THEN 1 TAB TWICE DAILY 10/05/19 24 Active Ozempic, 0.25 or 0.5 MG/DOSE, 2 MG/3ML solution pen-injector INJECT 0.25 MG SUBCUTANEOUSLY ONCE A WEEK 09/28/19 24 Active Blood Glucose Monitoring Suppl (FreeStyle freedom lite monitor) w/Device kit USE DIRECTED 09/13/19 Active FREESTYLE LITE test strip USE 1 STRIP TWICE DAILY TO TEST SUGAR OR DIRECTED 10/26/19 24 Active FreeStyle Lancets USE DIRECTED 0 24 Active EQ Aspirin Adult Low Dose 81 MG EC tablet Take 1 tablet (81 mg) by mouth 1 (one) time each day. 11/24/19 24 Active simvastatin (Zocor) 10 MG tablet Take 1 tablet (10 mg) by mouth 1 (one) time each day. 11/24/19 24 Active Vraylar 3 MG capsule Take 1 capsule (3 mg) by mouth 1 (one) time each day. 11/30/19 24 Active fluticasone (Flonase) 50 MCG/ACT nasal spray Administer 2 sprays into each nostril. 02/10/20 24 Active traZODone (Desyrel) 50 MG tablet 05/08/20 24 Active metoprolol succinate XL (Toprol-XL) 100 MG 24 hr tablet Take 1 tablet (100 mg) by mouth 1 (one) time each day. 04/18/20 24 Active diclofenac (Voltaren) 75 MG EC tablet 02/24/20 24 Active naloxone (Narcan) 4 mg/0.1 mL nasal spray 1. Give 1 spray in nostril for no/slow breathing or cannot wake after opioid use 2. Call 911 3. Repeat in other nostril if symptoms continue Call 911. Give 4 mg (1 spray) into one nostril. Repeat every 2-3 minutes as needed, alternating nostrils, until medical assistance arrives. 2 each 1 07/10/19 25 026 Active Vraylar 4.5 MG capsule Take 1 capsule by mouth daily. 08/30/19 25 Active metFORMIN, MOD, (Glumetza) 500 MG 24 hr tablet Take 1 tablet by mouth 2 (two) times a day with meals. Do not crush, chew, or split. Active metoprolol tartrate (Lopressor) 100 MG tablet Take 1 tablet by mouth daily. Active lisinopril 40 MG tablet Take 1 tablet by mouth daily. Active hydroCHLOROthiazid e (HYDRODiuril) 25 MG tabletIndications: Hypertensive chronic kidney disease with stage 1 through stage 4 chronic kidney disease, or unspecified chronic kidney disease Take 1 tablet by mouth daily. 90 tablet 3 09/23/19 25 Active ARIPiprazole (Abilify) 5 MG tablet 10/19/19 25 Active ARIPiprazole (Abilify) 10 MG tablet 11/16/19 25 Active morphine CR (MS Contin) 15 MG 12 hr tablet Take 1 tablet by mouth 2 times a day. Do not crush, chew, or split. 60 tablet 01/04/20 25 Active morphine CR (MS Contin) 15 MG 12 hr tablet Take 1 tablet by mouth 2 times a day. Do not crush, chew, or split. 60 tablet 02/01/20 25 025 Active Hospital, Clinic, or Other Facility Administered Medication [...] (08/18/2022): Added automatically from request for surgery [id number] Nontraumatic incomplete tear of right rotator cu ff 04/24/2022 Overview (04/24/2022): Added automatically from request for surgery [id number] Solitary kidney, acquired 12/11/2021 Chronic pain of right knee 11/25/2020 Chronic, continuous use of opioids 11/25/2020 Pain management contract signed 06/10/2020 Chronic pain syndrome 12/28/2018 ocean transportation intermediary prescription opiate use 12/28/2018 Acute meniscal tear, medial 08/11/2016 Post-traumatic osteoarthritis of knee 05/14/2015 Osteochondral defect 04/18/2015 Hyperlipemia 10/28/2012 Anxiety disorder 10/28/2012 Gastro-esophageal reflux disease without esophag itis 05/16/2012 Knee internal derangement 05/16/2012 Osteoarthritis of right knee 05/16/2012 Mood disorder 05/16/2012 Neuralgia 05/16/2012 Encounters Date Type Department Care Team Description 02/20/2025 8:50 AM EDT Office Visit [facility] [address] [place] [address] David Fairbanks MD Arthritis of right knee (Primary Dx) 02/20/2025 Travel 01/11/2025 3:30 PM EDT Office Visit [facility] [address], [address] [place] [address] David Fairbanks MD Chronic pain of right knee (Primary Dx) 01/11/2025 2:31 PM EDT - 01/11/2025 11:59 PM EDT Hospital Encounter Medical Office Building Radiology [address] [place] [address] Chronic pain of right knee Discharge Disposition: Home or Self Care 01/11/2025 Travel 01/03/2025 2:40 PM EDT Office Visit [facility] Medicine [address] [place] [address] Michi Skelton MD Chronic pain of right knee (Primary Dx) 01/03/2025 Travel 12/21/2024 Orders Only [facility] [address] [place] [phone] Hieu Orr MD 12/20/2024 Telephone [facility] [address] [place] [address] Michi Skelton MD HCN - Patient Message 12/20/2024 Telephone [facility] [address] [place] [address] Janet Franco LPN Prior-authorization /insurance Verification 12/19/2024 Orders Only [facility] [address] [place] [phone] Michi Skelton MD 12/18/2024 Telephone [facility] [address] [place] [address] Michi Skelton MD HCN Patient Medication Refill Request from Last 3 Months Immunizations Immunization Administration Dates Next Due Hep B, adult 12/27/2007, 8,06/28/2007,2006,07/30/2006,06/29/2006 Influenza, injectable, quadr ivalent, preservative free 04/05/2019,03/29/2017 Influenza, seasonal, injectable 04/16/2016 Tdap 05/08/2023,12/31/2016,09/17/2011 Family History Medical History Relation Name Comments Diabetes Brother Michi Borden no known history Father pt adoped by stepfather Cancer Maternal Grandfather Beau Dennis Diabetes Maternal Grandfather Beua Dennis Lung cancer Maternal Grandfather Beau Dennis Stroke Maternal Grandfather Beau Dennis Cancer Maternal Grandmother Cleda Dennis Coronary artery disease Maternal Grandmother Cleda Lidya l Arthritis Mother Nikkie Borden Migraines Mother Nikkie Borden Heart attack Other 1 Heart failure Other 2 Diabetes Other 3 Heart disease Other 4 Hypertension Other 5 Conversions - Other Other 6 Reported Family History Of Mental Illness (Not Retardation) Stroke Other 7 Depression Paternal Grandmother Unknown Mental illness Paternal Grandmother Unknown Developmental delay Son Smith Borden Anesthesia problems Neg Hx Malig Hyperthermia Neg Hx Relation Name Status Comments Brother Michi Borden Alive Father pt adoped by stepfather Maternal Grandfather Beau Dennis Maternal Grandmother Cleda Dennis Alive Mother Nikkie Borden Alive Other 1 Other 2 Other 3 Other 4 Other 5 Other 6 Other 7 Paternal Grandmother Unknown Alive Son Smith Borden Alive Social History Tobacco Use Types Packs/Day Years Used Date Smoking Tobacco: Former Cigarettes Q uit: 2003 Passive Smoke Exposure: Never Smokeless Tobacco: Never [...] Pulse 87 02/20/2025 8:30 AM EDT Temperature 36.4 C (97.5 F) 01/03/2025 2:30 PM EDT Respiratory Rate 18 01/03/2025 2:30 PM EDT Oxygen Saturation 97% 02/20/2025 8:30 AM EDT Inhaled Oxygen Concentration - - Weight 96.6 kg (213 lb) 02/20/2025 8:30 AM EDT Height 167.6 cm (5' 6 ) 02/20/2025 8:30 AM EDT Body Mass Index 34.38 02/20/2025 8:30 AM EDT Plan of Treatment Upcoming Encounters Date Type Department Care Team (Late st Contact Info) Description 02/27/2025 9:20 AM EDT Office Visit [facility] Medicine [address] [place] [address] Michi Skelton MD [address] [facility] [address] [place] [phone] 10/05/2025 10:40 AM EDT Office Visit [facility] [address] [place] [address] Kaiden Geiger MD [address] [place] [address] Health Maintenance Due Date Last Done Comments [facility]-HIV Screening 1972 [facility]-Hepatitis C Screening 1972 [facility]-/Child/Adol SDOH Screenings 1972 [facility]- SDOH Screenings 1990 [facility]-Adult SDOH Screenings 1990 CT Colonography 2017 Colonoscopy 2017 FIT-DNA 2017 FIT 2017 FOBT 2017 Sigmoidoscopy 2017 [facility]-Colorectal Cancer Screening 2017 [facility]-Pneumococcal Vaccine: 50+ Years (1 of 1 - PCV) 2022 [facility]-Zoster Vaccines (1 of 2) 2022 [facility]-Depression Screening 09/08/2024 09/09/2023 [id number] Vaccine (1 - season) 2025 [facility]-Influenza Vaccine (#1) 02/05/202504/05, 03/29/2017, 04/16/2016 [facility]-DTaP,Tdap,and Td Vaccines (4 - Td or Tdap) 05/08/2033 05/08/2023, 12/31/2016, 09/17/2011 [facility]-Hepatitis B Vaccines Completed 008, 07/29/2007, 06/28/2007, Additional history exists [facility]-Obesity Intervention Completed 025, 01/11/2025, 01/03/2025, Additional history exists HPV Vaccines Aged Out [...] this topic Medical Devices Implanted Type Area Time Cycle Operator Device Identifier Shelf Expiration Date Model / Serial / Lot [employer] Ultra Twinfix 5.5 - [id number] Implanted:Qt y: 1 on 05/27/2022 by Dragan Kathleen MD at [facility] Implant Right: Shoulder [employer] (Acu[employer]x)-[id number] 07/19/2026 [id number] / / [id number] Spinal Cord Stimulator- Implanted: (Quantity not on file) Spinal Cord Stimulator Left: Hip Description:pt states he could turn this off if needed for surgery, will take to staff am of OR Sapulpa All Suture Qfix 2.8mm - [id number] Implanted:Qt y: 1 on 12/04/2022 by Dragan Kathleen MD at [facility] Left: Shoulder [employer] (Acufex)-[id number] 10/02/2025 [id number] / / [id number] Procedures Procedure Name Priority Date/Time Associated Diagnosis Comments IA ARTHROCENTESIS ASPIR&/INJ MAJOR JT/BURSA W/O US Routine 01/11/2025 3:30 PM EDT Chronic pain of right knee XR KNEE RIGHT 4+ VIEWS Routine 2:36 PM EDT Chronic pain of right knee from Last 3 Months Results * IA ARTHROCENTESIS ASPIR&/INJ MAJOR JT/BURSA W/O US (01/11/2025 [...] to verify the correct patient, procedure, equipment, legal support assistant and site/side marked as required. Patient was prepped and draped in the usual sterile fashion. 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
--- OUTSIDE RECORDS SUMMARY | 2025-02-24 12:57 | XMS_ITS | Clinical Summary ---
Author Organization [facility] Address [address] [place] [address] Care Team Providers Care Naval Architect Name Role Phone Hieu Francois M.D. Primary Care Provider [phone] Source Comments [facility] is fully rolled out with thefollowing exceptions:General Clinical Research [facility] Social History Tobacco Use Types Packs/Day Years Used Date Smoking Tobacco: Never Assessed Sex and Gender Information Value Date Recorded Sex Assigned at Not on file Legal Sex Male 4:11 PM EDT Gender Identity Not on file Sexual Orientation Not on file Plan of Treatment Health Maintenance Due Date Last Done Comments MMR IMMUNIZATION (1 of 1 - S tandard series) 1973 DTAP/Tdap/Td IMMUNIZATION (1 - Tdap) 12/18/1979 VARICELLA IMMUNIZATION (1 of 2 - 13+ 2-dose series) 1985 HEPATITIS B IMMUNIZATION (1 of 3 - 19+ 3-dose series) 12/18/1991 AMB SEASONAL FLU VACCINE (#1) 02/05/2025 COVID-19 Vaccine ( - 2023-2 5 season) 2025 HIB IMMUNIZATION Aged Out No longer e ligible based on patient's age to complete this topic HPV IMMUNIZATION Aged Out No longer e ligible based on patient's age to complete this topic IPV IMMUNIZATION Aged Out No longer e ligible based on patient's age to complete this topic MCV4 IMMUNIZATION Aged Out No longer eligible based on patient's age to complete this topic MENINGOCOCCAL B VACCINE Aged Out No l onger eligible based on patient's age to complete this topic Respiratory Syncytial Virus (RSV) <20mo Aged Out No longer eligible b ased on patient's age to complete this topic Insurance NONE (Home) [address] [place] [address] [facility] Member Subscriber Plan / Payer (Ef fective 2016-Present) Name:Juanjose Borden Relation to Subscriber:Self Name:Juanjose Borden Payer ID:[id number] (NAIC) Group ID:Not on file Type:HMO Medicaid Address: [place], [place] Care Teams Naval Architect Relationship Specialty Start Date End Date Hieu Francois M.D. Primary Care [address] [place] [address] [place] [address] PCP - General External Family Practice 03/29/17
--- OUTSIDE RECORDS SUMMARY | 2025-02-24 12:58 | XMS_ITS | Clinical Summary ---
Author Organization [employer] ([place], [place], [place], [place]) Address [address] [place] [address] Care Team Providers Care Linderman Machine Operator Name Role Phone CorinaBrian hein MAT Primary Care Provider [phone] Allergies No known active allergies Medications FLUoxetine [...] the past 12 months, has t he [employer], [employer], [employer], or water [employer] threatened to shut off services in your [...] Do you speak a language other than Greenlandic at [facility]? No 08/16/2023 Do you want help with [...] Shingles Vaccine (Zoster) (1 of 2) 2022 Tobacco Cessation Counseling and Screening (12+) 01/31/2025 02/01/2024 COVID-19 VACCINE ( - 2023- season) 2025 Influenza Vaccine (#1) 2025 DTAP/TDAP/TD VACCINES (4 - T d or Tdap) 05/08/2033 05/08/2023, 12/31/2016, 09/17/2011 Insurance [facility] Advance Directives For more information, please contact: [phone] * Full Code (Latest Code Status on File) Date Activated Date Inactivated Comments 02/17/2024 9:05 AM 02/20/2024 1:44 PM * Full Code Date Activated Date Inactivated Comments 08/16/2023 8:46 AM 08/19/2023 3:09 PM Care Teams Linderman Machine Operator Relationship Specialty Start Date End Date Brian Morris APRN [address] [place] [address] PCP - General Nurse Practitioner 08/16/23
--- OUTSIDE RECORDS SUMMARY | 2025-02-24 12:58 | XMS_ITS | Referral Summary ---
Author Organization [employer] ([place], [place], [place], [place]) Address [address] [place] [address] Care Team Providers Care Administration Professional Name Role Phone Alexandra Brian MAT Primary Care Provider [phone] Allergies No known active allergies Medications FLUoxetine [...] the past 12 months, has t he [employer], [employer], [employer], or water [email or web address] threatened to shut off services in your [...] Do you speak a language other than [place]ican at [facility]? No 08/16/2023 Do you want help [...] Plan of Treatment Not on file Insurance [facility] Advance Directives For more information, please contact: [phone] * Full Code (Latest Code Status on File) Date Activated Date Inactivated Comments 02/17/2024 9:05 AM 02/20/2024 1:44 PM * Full Code Date Activated Date Inactivated Comments 08/16/2023 8:46 AM 08/19/2023 3:09 PM Care Teams Administration Professional Relationship Specialty Start Date End Date Brian Morris, MAT [address] [facility] [place] [address] PCP - General Nurse Practitioner 08/16/23
--- OUTSIDE RECORDS SUMMARY | 2025-02-24 12:58 | XMS_ITS | Encounter Summary ---
Author Organization [facility] Address [address] [place] [address] Care Team Providers Care Sweeper Driver Name Role Phone Aura Camejo Primary Care Provider [phone] Brian Morris APRN Primary Care Provider [phone] Encounter Details Date Type Department Care Team (Late Contact Info) Description 01/01/2022 Orders Only External Location [address] [place] [address] Provider, External Social History Tobacco Use Types [...] Description 02/27/2025 9:20 AM EDT Office Visit [facility] Interventional Pain Medicine [address] [place] [address] Michi Skelton MD [address] [facility] [address] [place] [phone] 10/05/2025 10:40 AM EDT Office Visit [facility] [address] [place] [address] Kaiden Geiger MD [address] [place] [address] documented as of this encounter [...] documented as of this encounter Care Teams Sweeper Driver Relationship Specialty Start Date End Date Aura Camejo PA [address] [place] [address] PCP - General 12/11/21 09/22/22 Brian Morris APRN [address] [facility] [address] PCP - General 09/23/22 documented as of this encounter
[2025-02-24] MEDS: IBUPROFEN 400 MG TABLET PO (13:00)
[2025-02-24 13:24] VITALS: BP 125/70; PULSE 69; RESP 18; TEMP 36.7; O2SAT 99
== END 2025-02-24 13:25 | disposition home or self-care (01) ==
PROVIDERS: Emergency Provider Student in an Organized Health Care Education/Training Program; PCP Nurse Practitioner Family
DX: M25.532 Pain in left wrist (principal); E78.5 Hyperlipidemia, unspecified; E11.9 Type 2 diabetes mellitus without complications
CPT/HCPCS: 73110; 99282; 99283

== ENCOUNTER 2025-04-24 12:06 | Outpatient (CLI) | payer MEDICAID, SELFPAY ==
[2025-04-24 14:51] LABS: Hematocrit 44.4 % (42.0-52.0); Hemoglobin 15.3 g/dL (14.1-18.0); Immature Granulocytes % 1.2 %; Mean Corpuscular HGB Conc 34.5 g/dL (31.8-35.4); Mean Corpuscular Hemoglobin 29.1 pg (27.0-31.2); Mean Corpuscular Volume 84.4 fl (80-94); Nucleated Red Blood Cells % 0 %; Platelet Count 288 K/mm3 (142-424); Red Blood Count 5.26 M/mm3 (4.60-6.20); Red Cell Distribution Width-SD 37.7 fL; White Blood Count 8.1 K/mm3 (4.8-10.8)
[2025-04-24 15:19] LABS: Hemoglobin A1C 6.4 % (4.0-6.0)
[2025-04-24 15:43] LABS: Alanine Aminotransferase 50 U/L (12-78); Albumin Level 4.9 g/dl (3.5-5.0); Albumin/Globulin Ratio 2.0 (1.1-1.8); Alkaline Phosphatase 70 U/L (38-126); Anion Gap 14.2 mEq/L (5-15); Aspartate Amino Transferase 33 U/L (17-59); Bilirubin,Total 0.9 mg/dl (0.2-1.3); Blood Urea Nitrogen 15 mg/dl (9-20); Calcium 9.9 mg/dl (8.4-10.2); Carbon Dioxide 21 mmol/L (22.0-30.0); Chloride 104 mmol/L (98-107); Cholesterol 179 mg/dl (140-200); Creatinine,Serum 1.00 mg/dl (0.66-1.25); Estimated Glomerular Filt Rate 78 ml/min (>60); GFR (African American) 95 ML/MIN (>60); Globulin 2.4 g/dL (1.3-3.2); Glucose 131 mg/dl (74-100); HDL Cholesterol 33 mg/dl (40-60); Potassium 4.2 mmoL/L (3.5-5.1); Sodium 135 mmol/L (136-145); Total Protein,Serum 7.3 g/dl (6.3-8.2); Triglycerides 273 mg/dl (30-150)
[2025-04-24 16:11] LABS: Thyroid Stimulating Hormone 1.45 uIU/mL (0.465-4.68)
[2025-04-24 16:25] LABS: Hepatitis C Ab Qual. W/ RFX NEGATIVE (Negative)
[2025-04-26 04:09] LABS: Hepatitis B Surface Antigen Negative (Negative)
== END 2025-04-24 23:59 | disposition home or self-care (01) ==
LOC: LAB.DROPOF 04-25 14:04
PROVIDERS: PCP Nurse Practitioner Family; Visit Provider Nurse Practitioner Family
DX: E78.5 Hyperlipidemia, unspecified (principal); E11.69 Type 2 diabetes mellitus with other specified complication; E66.9 Obesity, unspecified; Z11.59 Encounter for screening for other viral diseases
CPT/HCPCS: 80053; 80061; 83036; 84443; 85025; 86803; 87340; 87389

== ENCOUNTER 2025-05-18 17:17 | Emergency (ER) | payer MEDICAID, SELFPAY ==
--- OUTSIDE RECORDS SUMMARY | 2025-04-26 13:40 | XMS_ITS | Encounter Summary ---
Author Organization Healthcare Address [address] [place] [address] Care Team Providers Care Fiberglass Product Tester Name Role Phone Brian Morris APRN Primary Care Provider [phone] Reason for Referral * Other Medical (Routine) - Pending Review Specialty Diagnoses / Procedures Referred By Contac t Referred To Contact Diagnoses Chronic right shoulder pain Procedures Peripheral Nerve Stimulator - Trial Michi Skelton MD [address] [address] Phone: tel: fax: Referral ID Status Reason Start Date Expiration Date V isits Requested Visits Authorized [id number] Pending Review 04/26/2025 10/26/2026 1 1 Reason for Visit * Reason Comments Follow-up Med Refill Encounter Details Date Type Department Care Team (Late st Contact Info) Description 04/26/2025 1:40 PM EST Office Visit [facility] Interventional Pain Medicine [address] [place] [address] Michi Skelton MD [address] [phone] Chronic right shoulder pain (Primary [...] L2: 5/5 5/5 L3: 5/5 5/5 L4: 5/ 5/ L5: 5/ 5/ S1: 510/09 Knee - right Exam Right Palpation tender [...] opioids and stores medication in safe place E. Has Narcan for emergency use Follow up in 2 months for medication reevaluation documented in this encounter Plan of Treatment Upcoming Encounters Date Type Department Care Team (Late st Contact Info) Description 06/27/2025 1:20 PM EST Office Visit [facility] Interventional Pain Medicine [facility] [place] [phone] Michi Skelton MD 2400 [facility] [address] [place] [phone] 06/27/2025 2:00 PM EST Procedure Visit [facility] Interventional Pain Medicine [address] [place] [phone] Michi Skelton MD 2400 [facility] [address] [place] [address] [phone] 07/09/2025 1:20 PM EST Office Visit [facility] Interventional Pain Medicine [address] [place] [phone] Michi Skelton MD 2400 [facility] [address] [place] [address] [phone] 08/23/2025 1:40 PM EDT Office Visit [facility] Interventional Pain Medicine [facility] [place] [address] Michi Skelton MD 2400 [facility] [address] [place] [address] 10/05/2025 10:40 AM EDT Office Visit [facility] [address] [place] [address] Kaiden Geiger MD [address] [place] [address] Scheduled Orders Name Type Priority [...] <20 <20 ng/mL 04/30 4:14 AM EST [facility] [place] Midazolam <20 <20 ng/mL 2024 4:14 AM EST [facility] [place] Triazolam <20 <20 ng/mL 2024 4:14 AM EST [facility] Alprazolam <10 <10 ng/mL 04/30/2025 4:14 AM EST [facility] Aminoclonazepam <20 <20 ng/mL 5 4:14 AM EST [facility] Amphetamine <50 <50 ng/mL 04/30/2025 4:14 AM EST [facility] Benzoylecgonine <50 <50 ng/mL 5 4:14 AM EST [facility] Buprenorphine <10 <10 ng/mL 04/30/2025 4:14 AM [facility] Buprenorphine Glucuronide <50 <50 ng/mL 04/30/2025 4:14 AM [facility] Butalbital <50 <50 ng/mL 04/30/2025 4:14 AM [facility] 9 Carboxy THC >250(H) <10 ng/mL 04/30/2025 4:14 AM [facility] 9 Carboxy THC Glucuronide >500(H) <25 ng/mL 04/30/2025 4:14 AM [facility] Clonazepam <10 <10 ng/mL 04/30/2025 4:14 AM [facility] Codeine <50 <50 ng/mL 04/30/2025 4:14 AM [facility] Codeine Glucuronide <50 <50 ng/mL 04/30 4:14 AM [facility] Cyclobenzaprine <50 <50 ng/mL 4:14 AM [facility] Desmethyl Tramadol <50 <50 ng/mL 2024 4:14 AM [facility] Diazepam <10 <10 ng/mL 04/30/2025 4:14 AM [facility] EDDP - Methadone Metabolite <50 <50 ng/mL 04/30/2025 4:14 AM [facility] Fentanyl <1 <1 ng/mL 04/30/2025 4:14 AM [facility] Hydrocodone <50 <50 ng/mL 04/30/2025 4:14 AM [facility] Hydromorphone <50 <50 ng/mL 04/30/2025 4:14 AM [facility] Hydromorphone Glucuronide <50 <50 ng/mL 04/30/2025 4:14 AM [facility] Lorazepam <20 <20 ng/mL 04/30/2025 4:14 AM [facility] Lorazepam Glucuronide <50 <50 ng/mL 04/30/2025 4:14 AM [facility] MDA <50 <50 ng/mL 04/30/2025 4:14 AM [facility] MDMA <50 <50 ng/mL 04/30/2025 4:14 AM [facility] Meperidine <50 <50 ng/mL 04/30/2025 4:14 AM EST [facility] Methadone <50 <50 ng/mL 04/30/2025 4:14 AM [facility] Methamphetamine <50 <50 ng/mL 4:14 AM EST [facility] Methylphenidate <50 <50 ng/mL 4:14 AM EST [facility] 6 Monoacetyl morphine <10 <10 ng/mL 04/30/2025 4:14 AM [facility] Morphine 367(H) <50 ng/mL 04/30/2025 4:14 AM [facility] Morphine Glucuronide >1,000(H) <50 ng/mL 04/08 4:14 AM [facility] Naloxone <50 <50 ng/mL 04/30/2025 4:14 AM [facility] Naloxone Glucuronide <50 <50 ng/mL 04/08 4:14 AM [facility] Norbuprenorphine <10 <10 ng/mL 04/30/20 4:14 AM [facility] Norbuprenorphine Glucuronide <50 <50 ng/mL 04/30/2025 4:14 AM [facility] Nordiazepam <20 <20 ng/mL 04/30/2025 4:14 AM [facility] Norfentanyl <2 <2 ng/mL 04/30/2025 4:14 AM [facility] Normeperidine <50 <50 ng/mL 04/30/2025 4:14 AM [facility] PCP Quant, Ur <50 <50 ng/mL 04/30/2025 4:14 AM [facility] Phenobarbital <50 <50 ng/mL 04/30/2025 4:14 AM [facility] Oxazepam <20 <20 ng/mL 04/30/2025 4:14 AM [facility] Oxazepam Glucuronide <50 <50 ng/mL 04/08 4:14 AM [facility] Oxycodone <50 <50 ng/mL 04/30/2025 4:14 AM EST [facility] Oxymorphone <50 <50 ng/mL 04/30/2025 4:14 AM EST [facility] Oxymorphone Glucuronide <50 <50 ng/mL 04/30/2025 4:14 AM EST [facility] Secobarbital <50 <50 ng/mL 04/30/2025 4:14 AM EST [facility] Tramadol <50 <50 ng/mL 04/30/2025 4:14 AM EST [facility] Temazepam <20 <20 ng/mL 04/30/2025 4:14 AM EST [facility] Temazepam Glucuronide <50 <50 ng/mL 04/30/2025 4:14 AM EST [facility] Urine Urine specimen obtained by clean catch procedure / Unknown Non-blood Collection / Unknown 04/26/2025 1:47 PM EST 04/26/2025 6:10 PM EST [facility] - 04/30/2025 4:14 AM EST This [...] laboratory. Test performed by LC-MS/MS at the [facility]. This test was developed and its performance characteristics determined by [facility]. It has not been cleared or approved by the FDA. The laboratory is regulated under CLIA as qualified to perform high-complexity testing. This test is used for clinical purposes. us Michi Skelton MD LAB URINE ORDERABLES Fi nal Result [facility] [address] [place] [address] documented in this encounter Visit Diagnoses Diagnosis [...] documented as of this encounter Care Teams Fiberglass Product Tester Relationship Specialty Start Date End Date Biran Morris APRN [address] [place] [id number] PCP - General 09/23/22 documented as of this encounter
[2025-05-18] VITALS (47 sets, daily range): BP systolic 72–123; BP diastolic 35–79; PULSE 56–83; RESP 9–21; TEMP 36.6; O2SAT 94–98; BMI 31.8
--- NOTE | 2025-05-18 17:27 | XR_ITS ---
PROCEDURE INFORMATION: Exam: XR Chest Exam date and time: 05/18/2025 5:45 PM Age: 54 years old Clinical indication: Shortness of breath; Additional info: Short of breath TECHNIQUE: Imaging protocol: Radiologic exam of the chest. Views: 1 view. COMPARISON: CR XR CHEST 2V 01/22/2021 8:04 AM FINDINGS: Lungs: Unremarkable. No consolidation. Pleural spaces: Unremarkable. No pleural effusion. No pneumothorax. Heart/Mediastinum: Unremarkable. No cardiomegaly. Bones/joints: Unremarkable. IMPRESSION: No acute findings.
--- OUTSIDE RECORDS SUMMARY | 2025-05-18 17:30 | XMS_ITS | Encounter Summary ---
Author Organization [facility] Address [address] [id number] Care Team Providers Care Resource Room Special Education Teacher Name Role Phone Alexandra Brian Johnson APRN Primary Care Provider [phone] Reason for Visit * Reason Comments Med Refill Encounter Details Date Type Department Care Team (Late st Contact Info) Description 06/18/2023 Refill [facility] Interventional Pain Medicine [address] [place] [phone] Tony Priest, DO [address] [place] [address] Chronic pain of right knee; Chronic pain syndrome; Neuropathic pain Social History Tobacco Use Types Packs/Day Years Used Date Smoking Tobacco: Former Cigarettes 0 Q uit: 2002 Smokeless Tobacco: Never Comments:Former [...] Description 06/27/2025 1:20 PM EST Office Visit [facility] Interventional Pain Medicine [address] [place] [phone] [place] [address] [place] [phone] 06/27/2025 2:00 PM EST Procedure Visit [facility] Interventional Pain Medicine [address] [place] [phone] Michi Skelton MD [address] [place] [phone] 07/09/2025 1:20 PM EST Office Visit [facility] Interventional Pain Medicine [address] [place] [phone] Michi Skelton MD [address] [place] [phone] 08/23/2025 1:40 PM EDT Office Visit [facility] Interventional Pain Medicine [address] [place] [phone] Michi Skelton MD [address] [place] [phone] 10/05/2025 10:40 AM EDT Office Visit [facility] [address] [place] [address] Kaiden Geiger MD [address] [place] [phone] documented as of this encounter Visit [...] as of this encounter Care Teams Resource Room Special Education Teacher Relationship Specialty Start Date End Date Brian Morris APRN [address] [place] [id number] PCP - General 09/23/22 documented as of this encounter
--- OUTSIDE RECORDS SUMMARY | 2025-05-18 17:30 | XMS_ITS | Clinical Summary ---
Author Organization [facility] Address [address] [place] [id number] Care Team Providers Care Cake Decorator Name Role Phone Unavailable Primary Care Provider [...]
--- OUTSIDE RECORDS SUMMARY | 2025-05-18 17:30 | XMS_ITS | Encounter Summary ---
Author Organization Healthcare Address [address] [place] [address] Care Team Providers Care Sales And Marketing Associate Name Role Phone Brian Morris Alex RIVERO Primary Care Provider [phone] Encounter Details Date Type Department Care Team (Latest Contact Info) Description 04/26/2025 Travel Social History Tobacco Use Types Packs/Day [...] Description 06/27/2025 1:20 PM EST Office Visit [facility] Interventional Pain Medicine [address] [place] [address] Michi Skelton MD 2400 [facility] [address] [place] [address] 06/27/2025 2:00 PM EST Procedure Visit [facility] Interventional Pain Medicine [address] [place] [address] Michi Skelton MD [address] [address] 07/09/2025 1:20 PM EST Office Visit [facility] Interventional Pain Medicine [address] [place] [address] Michi Skelton MD 2400 [facility] Pt [address] [address] 08/23/2025 1:40 PM EDT Office Visit [facility] Interventional [facility] [place] [address] Michi Skelton MD [address] [address] 10/05/2025 10:40 AM EDT Office Visit [place] [facility] [address] [place] [address] Kaiden Geiger MD [address] [place] [phone] documented as of this encounter Visit [...] documented as of this encounter Care Teams Sales And Marketing Associate Relationship Specialty Start Date End Date Brian Morris APRN [address] [place] [address] PCP - General 09/23/22 documented as of this encounter
--- OUTSIDE RECORDS SUMMARY | 2025-05-18 17:30 | XMS_ITS | Encounter Summary ---
Author Organization Healthcare Address [address] [place] [address] Care Team Providers Care Business Continuity Global Director Name Role Phone Brian Morris APRN Primary Care Provider [phone] Encounter Details Date Type Department Care Team (Late st Contact Info) Description 01/18/2024 Orders Only External Location [address] [place] [phone] Brian Morris APRN [address] [id number] Social History Tobacco Use Types Packs/Day Years [...] Description 06/27/2025 1:20 PM EST Office Visit [facility] Interventional Pain Medicine [address] [place] [address] Michi Skelton MD 2400 [facility] [address] [place] [address] 06/27/2025 2:00 PM EST Procedure Visit [facility] Interventional Pain Medicine [address] [place] [address] Michi Skelton MD 2400 [facility] [place] [address] [address] 07/09/2025 1:20 PM EST Office Visit [facility] Interventional Pain Medicine [address] [place] [address] Michi Skelton MD 2400 [facility] [place] [address] [address] 08/23/2025 1:40 PM EDT Office Visit [facility] Interventional Pain Medicine [address] [place] [address] [place] [address] [place] [address] [place] [address] 10/05/2025 10:40 AM EDT Office Visit [place] [address] [place] [address] Kaiden Geiger MD [address] [place] [phone] documented as of this encounter Procedures Procedure Name Priority Date/Time Associated Diagnosis Comments XR MSK OUTSIDE IMAGES 01/18/2024 10:56 AM EDT documented in this encounter Results * XR MSK OUTSIDE IMAGES (01/18/2024 10:56 AM EDT) Anatomical Region Laterality Modality Radiographic Amalia ging 01/18/2024 10:5 6 AM EDT Brian Morris MIGRATION AGENT IMG XR PROCEDURES Final Res ult documented [...] documented as of this encounter Care Teams Business Continuity Global Director Relationship Specialty Start Date End Date Brian Morris APRN [address] [place] [address] PCP - General 09/23/22 documented as of this encounter
--- OUTSIDE RECORDS SUMMARY | 2025-05-18 17:31 | XMS_ITS | Encounter Summary ---
Author Organization [facility] Address [address] [place] [address] Care Team Providers Care Sustainability Specialist Name Role Phone Alexandra Brian Johnson APRN Primary Care Provider [phone] Reason for Visit * Reason Comments Med Refill Encounter Details Date Type Department Care Team (Late st Contact Info) Description 05/03/2024 Refill [facility] Interventional Pain Medicine [address] [place] [phone] Sylvie Rico [address] [place], [place] [phone] Social History Tobacco Use Types Packs/Day Years [...] Description 06/27/2025 1:20 PM EST Office Visit [facility] Interventional Pain Medicine [address] [place] [phone] Michi Skelton MD [address] [address] 06/27/2025 2:00 PM EST Procedure Visit [facility] Interventional Pain Medicine [address] [place] [address] Michi Skelton MD [address] [phone] 07/09/2025 1:20 PM EST Office Visit [facility] Interventional Pain Medicine [address] [place] [address] Michi Skelton MD [address] [address] 08/23/2025 1:40 PM EDT Office Visit [facility] Interventional Pain Medicine [address] [place] [address] [place] [address] [place] [address] 10/05/2025 10:40 AM EDT Office Visit [address] [place] [address] Kaiden Geiger MD [address] [place] [phone] documented as of this encounter Visit [...] documented as of this encounter Care Teams Sustainability Specialist Relationship Specialty Start Date End Date Brian Morris APRN [address] [place] [address] [place] [address] PCP - General 09/23/22 documented as of this encounter
--- OUTSIDE RECORDS SUMMARY | 2025-05-18 17:31 | XMS_ITS | Clinical Summary ---
Author Organization [facility] ([place], [place], [place], [place], [place]) Address [address] [place] [address] Care Team Providers Care Regional Sales Director Name Role Phone Alexandra Brian MAT Primary Care Provider [phone] Allergies No known active allergies Medications FLUoxetine [...] the past 12 months, has t he [employer], [employer], [employer], or water [employer] threatened to shut off services in your [...] Do you speak a language other than Hungarian at [facility]? No 08/16/2023 Do you want help [...] (12+) 01/31/2025 02/01/2024 COVID-19 VACCINE ( - season) 2025 Influenza Vaccine (#1) 2025 DTAP/TDAP/TD VACCINES (4 - T d or Tdap) 05/08/2033 05/08/2023, 12/31/2016, 09/17/2011 Insurance [facility] Advance Directives For more information, please contact: [phone] * Full Code (Latest Code Status on File) Date Activated Date Inactivated Comments 02/17/2024 9:05 AM 02/20/2024 1:44 PM * Full Code Date Activated Date Inactivated Comments 08/16/2023 8:46 AM 08/19/2023 3:09 PM Care Teams Regional Sales Director Relationship Specialty Start Date End Date Brian Morris APRN [address] [place] [address] PCP - General Nurse Practitioner 08/16/23
--- OUTSIDE RECORDS SUMMARY | 2025-05-18 17:31 | XMS_ITS | Referral Summary ---
Author Organization [facility] ([place], [place], [place], [place], [place]) Address [address] [place] [address] Care Team Providers Care Entry Level Assistant Manager Name Role Phone Alexandra Brian RIVERO Primary Care Provider [phone] Allergies No known active allergies Medications FLUoxetine [...] the past 12 months, has t he [employer], [employer], [employer], or water [employer] threatened to shut off services in your [...] Do you speak a language other than Cuban at [facility]? No 08/16/2023 Do you want help with [...] Plan of Treatment Not on file Insurance [facility] Advance Directives For more information, please contact: [phone] * Full Code (Latest Code Status on File) Date Activated Date Inactivated Comments 02/17/2024 9:05 AM 02/20/2024 1:44 PM * Full Code Date Activated Date Inactivated Comments 08/16/2023 8:46 AM 08/19/2023 3:09 PM Care Teams Entry Level Assistant Manager Relationship Specialty Start Date End Date Brian Morris APRN [address] [facility] [place] [address] PCP - General Nurse Practitioner 08/16/23
--- OUTSIDE RECORDS SUMMARY | 2025-05-18 17:31 | XMS_ITS | Encounter Summary ---
Author Organization Healthcare Address [address] [place] [address] Care Team Providers Care Bill Peddler Name Role Phone Aura Camejo Primary Care Provider [phone] Brian Morris APRN Primary Care Provider [phone] Encounter Details Date Type Department Care Team (Late Contact Info) Description 01/01/2022 Orders Only External Location [address] [place] [address] Provider, External Social History Tobacco Use Types [...] 06/27/2025 1:20 PM EST Office Visit [facility] Interventional Pain Medicine [address] [place] [address] Michi Skelton MD 2400 [facility] [address] [place] [address] 06/27/2025 2:00 PM EST Procedure Visit [facility] Interventional [facility] Medicine [address] [place] [phone] [place] [address] [place] [address] [address] [place] [address] [address] 07/09/2025 1:20 PM EST Office Visit [facility] Medicine [address] [place] [address] [place] [address] [place] [address] [address] 08/23/2025 1:40 PM EDT Office Visit [facility] Medicine [address] [place] [phone] [place] [address] [place] [address] [address] 10/05/2025 10:40 AM EDT Office Visit [address] [place] [address] Kaiden Geiger MD [address] [place] [phone] documented as of this encounter Procedures [...] documented as of this encounter Care Teams Bill Peddler Relationship Specialty Start Date End Date Aura Camejo PA [address] [place], [place] [id number] PCP - General 12/11/21 09/22/22 Brian Morris APRN [address] [place] [address] PCP - General 09/23/22 documented as of this encounter
--- OUTSIDE RECORDS SUMMARY | 2025-05-18 17:31 | XMS_ITS | Clinical Summary ---
Author Organization [facility] Address [address] [place] [address] Care Team Providers Care Senior Restaurant Manager Name Role Phone Hieu Francois MD Primary Care Provider [phone] Source Comments [facility] is fully rolled out with thefollowing exceptions:General [...] 1973 DTAP/Tdap/Td IMMUNIZATION (1 - Tdap) 12/18/1979 Yearly Physical Ages 3-18+ 12/18/1983 VARICELLA IMMUNIZATION (1 of 2 - 13+ 2-dose series) 1985 HEPATITIS B IMMUNIZATION (1 of 3 - 19+ 3-dose series) 12/18/1991 AMB SEASONAL FLU VACCINE (#1) 02/05/2025 COVID-19 Vaccine ( - 2024-2 6 season) 2025 HIB IMMUNIZATION Aged Out No [...] to complete this topic Insurance NONE (Home) [address] [place] [id number] [facility] Member Subscriber Plan / Payer (Ef fective 2016-Present) Name:Juanjose Borden Relation to Subscriber:Self Name:Juanjose Borden Payer ID:[id number] (NAIC) Group ID:Not on file Type:HMO Medicaid Address: [place], [place] Care Teams Senior Restaurant Manager Relationship Specialty Start Date End Date Hieu Francois MD Primary Care [address] [place] [address] [place] [address] PCP - General External Family Practice 03/29/17
--- OUTSIDE RECORDS SUMMARY | 2025-05-18 17:31 | XMS_ITS | Clinical Summary ---
Author Organization [facility] Address [address] [place] [address] Care Team Providers Care Outreach Liaison Name Role Phone Brian Morris APRN Primary Care Provider [phone] Allergies No known active allergies Medications FLUoxetine (PROzac) 40 MG capsule Take by mouth 2 (two) times a day. 12/01/19 18 Active omeprazole (PriLOSEC) [address] capsule 04/20/20 21 Active lisinopril 40 MG tablet Take 1 tablet (40 mg) by mouth 1 (one) time each day. 09/11/19 23 Active montelukast (Singulair) 10 MG tablet [...] lite monitor) w/Device kit USE DIRECTED 09/13/19 24 Active FREESTYLE LITE test strip USE 1 STRIP TWICE DAILY TO TEST SUGAR OR DIRECTED 10/26/19 24 Active FreeStyle Lancets USE DIRECTED 0 24 Active EQ Aspirin Adult Low Dose 81 MG EC tablet Take 1 tablet (81 mg) by mouth 1 (one) time each day. 11/24/19 24 Active fluticasone (Flonase) 50 MCG/ACT nasal [...] assistance arrives. 2 each 1 07/10/19 25 2025 Active Vraylar 4.5 MG capsule Take [...] (Abilify) 10 MG tablet 11/16/19 25 Active ARIPiprazole (Abilify) 20 MG tablet Take 1 tablet by mouth nightly. 02/23/20 25 Active Ketoprofen 10 % cream APPLY 1-2 GRAMS TO AFFECTED AREAS 3-4 TIMES DAILY 02/24/20 Active morphine CR (MS Contin) 15 MG 12 hr tablet Take 1 tablet by mouth 2 times a day. Do not crush, chew, or split. 60 tablet 03/28/20 Active morphine CR (MS Contin) 15 MG 12 hr tablet Take 1 tablet by mouth 2 times a day. Do not crush, chew, or split. 60 tablet 04/29/20 25 2024 Active morphine CR (MS Contin) 15 MG 12 hr tablet Take 1 tablet by mouth 2 times a day. Do not crush, chew, or split. 60 tablet 05/27/202025 Active QUEtiapine (SEROquel) 100 MG tablet Take 2 tablets (200 mg) by mouth 1 (one) time each day. 01/07/202024 Discontin ued(Per Patient Report) ondansetron ODT (Zofran-ODT) 4 MG disintegrating tablet DISSOLVE 1 TABLET IN MOUTH EVERY 8 HOURS NEEDED FOR NAUSEA AND VOMITING 05/07/202024 Discontin ued(Per Patient Report) simvastatin (Zocor) 10 MG tablet Take 1 tablet (10 mg) by mouth 1 (one) time each day. 11/24/192024 Discontin ued(Per Patient Report) Vraylar 3 MG capsule Take 1 capsule (3 mg) by mouth 1 (one) time each day. 11/30/192024 Discontin ued(Per Patient Report) morphine CR (MS Contin) 15 MG 12 hr tablet Take 1 tablet by mouth 2 times a day. Do not crush, chew, or split. 60 tablet 02/28/202024 Discontin ued([facility]) Hospital, Clinic, or Other Facility Administered Medication [...] (08/18/2022): Added automatically from request for surgery [id number] Nontraumatic incomplete tear of right rotator cu ff 04/24/2022 Overview (04/24/2022): Added automatically from request for surgery [id number] Solitary kidney, acquired 12/11/2021 Chronic, continuous use of opioids 11/25/2020 Pain management contract signed 06/10/2020 Chronic pain syndrome 12/28/2018 terminal worker prescription opiate use 12/28/2018 Acute meniscal tear, medial 08/11/2016 Post-traumatic osteoarthritis of knee 05/14/2015 Osteochondral defect 04/18/2015 Hyperlipemia 10/28/2012 Anxiety disorder 10/28/2012 Gastro-esophageal reflux disease without esophag itis 05/16/2012 Knee internal derangement 05/16/2012 Osteoarthritis of right knee 05/16/2012 Mood disorder 05/16/2012 Neuralgia 05/16/2012 Resolved Problems Problem Noted Date Diagnosed Date Resolved Date Chronic pain of right knee 11/25/2020 0 02/25/2025 Encounters Date Type Department Care Team Description 04/26/2025 1:40 PM EST Office Visit [facility] [address] [place] [address] Michi Skelton MD Chronic right shoulder pain (Primary Dx); Medication management 04/26/2025 Travel 02/27/2025 9:20 AM EDT Office Visit [facility] [place] [address] Michi Skelton MD Chronic pain of right knee (Primary Dx); Chronic use of opiate for therapeutic purpose 02/27/2025 Travel 02/20/2025 8:50 AM EDT Office Visit [facility] [address] [facility] [place] [address] David Fairbanks MD Arthritis of right knee (Primary Dx) 02/20/2025 Travel from Last 3 Months Immunizations Immunization Administration Dates Next Due Hep B, adult 12/27/2007, 8,06/28/2007,2006,07/30/2006,06/29/2006 Influenza, injectable, quadr ivalent, preservative free 04/05/2019,03/29/2017 Influenza, seasonal, injectable 04/16/2016 Tdap 05/08/2023,12/31/2016,09/17/2011 Family History Medical History Relation Name Comments Diabetes Brother Michi Borden no known history Father pt adoped by stepfather Cancer Maternal Grandfather Beau Dennis Diabetes Maternal Grandfather Beau Dennis Lung cancer Maternal Grandfather Beau Dennis [...] stepfather Maternal Grandfather Beau Dennis Maternal Grandmother Clemarlyn Dennis Alive Mother Nikkie Borden Alive Other [...] 16 04/26/2025 1:10 PM EST Oxygen Saturation 97% 02/27/2025 9:11 AM EDT Inhaled Oxygen Concentration - - Weight 96.6 kg (213 lb) 04/26/2025 1:10 PM EST Height 167.6 cm (5' 6 ) 04/26/2025 1:10 PM EST Body Mass Index 34.38 04/26/2025 1:10 PM EST Plan of Treatment Upcoming Encounters Date Type Department Care Team (Late st Contact Info) Description 06/27/2025 1:20 PM EST Office Visit [facility] [address] [place] [phone] Michi Skelton MD [facility] [address] [phone] 06/27/2025 2:00 PM EST Procedure Visit [facility] [address] [place] [phone] Michi Skelton MD [address] [phone] 07/09/2025 1:20 PM EST Office Visit [facility] [address] [place] [phone] Michi Skelton MD [address] [phone] 08/23/2025 1:40 PM EDT Office Visit [facility] [address] [place] [address] Michi Skelton MD [address] [facility] [address] [place] [address] 10/05/2025 10:40 AM EDT Office Visit [facility] [address] [place] [address] Kaiden Geiger MD [address] [place] [address] Health Maintenance Due Date Last Done Comments [facility]-HIV Screening 1972 [facility]-Hepatitis C Screening 1972 [facility]-Infant/Child/Adol SDOH Screenings 1972 [id number] Vaccine (#1) 06/19/1973 [facility]- SDOH Screenings 1990 [facility]-Adult SDOH Screenings 1990 [facility]-Pneumococcal Vaccine: 50+ Years (1 of 2 - PCV) 12/18/1991 [facility]-Zoster Vaccines (1 of 2) 12/18/1991 CT Colonography 2017 Colonoscopy 2017 FIT-DNA 2017 FIT 2017 FOBT 2017 Sigmoidoscopy 2017 [facility]-Colorectal Cancer Screening 2017 [facility]-Depression Screening 09/08/2024 09/09/2023 [facility]-Influenza Vaccine (#1) 02/05/202504/05, 03/29/2017, 04/16/2016 [facility]-DTaP,Tdap,and Td Vaccines (4 - Td or Tdap) 05/08/2033 05/08/2023, 12/31/2016, 09/17/2011 [facility]-Hepatitis B Vaccines Completed 008, 07/29/2007, 06/28/2007, Additional history exists [facility]-Obesity Intervention Completed 025, 02/27/2025, 02/20/2025, Additional history exists HPV Vaccines (No Doses Required) Completed [facility]-HIB Vaccines Aged Out No longer e [...] this topic Medical Devices Implanted Type Area Rig Builder Device Identifier Shelf Expiration Date Model / Serial / Lot [place] Ultra Twinfix 5.5 - [id number] Implanted:Qt y: 1 on 05/27/2022 by Dragan Kathleen MD at [facility] Implant Right: Shoulder [employer] (Acufex)-[id number] 07/19/2026 [id number] / / [id number] Spinal Cord Stimulator- Implanted: (Quantity not on file) Spinal Cord Stimulator Left: Hip Description:pt states he could turn this off if needed for surgery, will take to staff am of OR [employer] All Suture Qfix 2.8mm - [id number] Implanted:Qt y: 1 on 12/04/2022 by Dragan Kathleen MD at [facility] Left: Shoulder [employer] (Acufex)-[id number] 10/02/2025-0570 / / [id number] Procedures Procedure Name Priority Date/Time Associated Diagnosis Comments PAIN MANAGEMENT, QUANTITATIVE URINE DRUG TESTING Routine 04/26/2025 1:47 PM EST Medication management PAIN MANAGEMENT, QUANTITATIVE URINE DRUG TESTING Routine 04/26/2025 1:47 PM EST Medication management from Last 3 Months Results * (ABNORMAL) Pain Management, Quantitative Urine Drug Testing (04/26/2025 1:47 PM EST) [facility] Alprazolam <20 <20 ng/mL 04/30 4:14 AM EST [facility] Midazolam <20 <20 ng/mL 2024 4:14 AM EST [facility] Triazolam <20 <20 ng/mL 2024 4:14 AM EST [facility] Alprazolam <10 <10 ng/mL 04/30/2025 4:14 AM EST [facility] Aminoclonazepam <20 <20 ng/mL 4:14 AM [facility] Amphetamine <50 <50 ng/mL 04/30/2025 4:14 AM EST [facility] Benzoylecgonine <50 <50 ng/mL 4:14 AM EST [facility] Buprenorphine <10 <10 ng/mL 04/30/2025 4:14 AM [facility] Buprenorphine Glucuronide <50 <50 ng/mL 04/30/2025 4:14 AM [facility] Butalbital <50 <50 ng/mL 04/30/2025 4:14 AM EST [facility] 9 Carboxy THC >250(H) <10 ng/mL 04/30/2025 4:14 AM EST [facility] 9 Carboxy THC Glucuronide >500(H) <25 ng/mL 04/30/2025 4:14 AM [facility] Clonazepam <10 <10 ng/mL 04/30/2025 4:14 AM [facility] Codeine <50 <50 ng/mL 04/30/2025 4:14 AM [facility] Codeine Glucuronide <50 <50 ng/mL 04/30 4:14 AM [facility] Cyclobenzaprine <50 <50 ng/mL 4:14 AM [facility] Desmethyl Tramadol <50 <50 ng/mL 2024 4:14 AM [facility] Diazepam <10 <10 ng/mL 04/30/2025 4:14 AM [facility] EDDP - Methadone Metabolite <50 <50 ng/mL 04/30/2025 4:14 AM [facility] Fentanyl <1 <1 ng/mL 04/30/2025 4:14 AM [facility] Hydrocodone <50 <50 ng/mL 04/30/2025 4:14 AM [facility] Hydromorphone <50 <50 ng/mL 04/30/2025 4:14 AM [facility] Hydromorphone Glucuronide <50 <50 ng/mL 04/30/2025 4:14 AM [facility] Lorazepam <20 <20 ng/mL 04/30/2025 4:14 AM [facility] Lorazepam Glucuronide <50 <50 ng/mL 04/30/2025 4:14 AM [facility] MDA <50 <50 ng/mL 04/30/2025 4:14 AM [facility] MDMA <50 <50 ng/mL 04/30/2025 4:14 AM [facility] Meperidine <50 <50 ng/mL 04/30/2025 4:14 AM [facility] Methadone <50 <50 ng/mL 04/30/2025 4:14 AM [facility] Methamphetamine <50 <50 ng/mL 4:14 AM [facility] Methylphenidate <50 <50 ng/mL 4:14 AM [facility] 6 Monoacetyl morphine <10 <10 ng/mL 04/30/2025 4:14 AM [facility] Morphine 367(H) <50 ng/mL 04/30/2025 4:14 AM [facility] Morphine Glucuronide >1,000(H) <50 ng/mL 04/08 4:14 AM [facility] Naloxone <50 <50 ng/mL 04/30/2025 4:14 AM [facility] Naloxone Glucuronide <50 <50 ng/mL 04/08 4:14 AM [facility] Norbuprenorphine <10 <10 ng/mL 04/30/20 4:14 AM [facility] Norbuprenorphine Glucuronide <50 <50 ng/mL 04/30/2025 4:14 AM [facility] Nordiazepam <20 <20 ng/mL 04/30/2025 4:14 AM [facility] Norfentanyl <2 <2 ng/mL 04/30/2025 4:14 AM [facility] Normeperidine <50 <50 ng/mL 04/30/2025 4:14 AM [facility] PCP Quant, Ur <50 <50 ng/mL 04/30/2025 4:14 AM EST [facility] Phenobarbital <50 <50 ng/mL 04/30/2025 4:14 AM EST [facility] Oxazepam <20 <20 ng/mL 04/30/2025 4:14 AM EST [facility] Oxazepam Glucuronide <50 <50 ng/mL 04/08 4:14 AM EST [facility] Oxycodone <50 <50 ng/mL 04/30/2025 4:14 AM EST [facility] Oxymorphone <50 <50 ng/mL 04/30/2025 4:14 AM EST [facility] Oxymorphone Glucuronide <50 <50 ng/mL 04/30/2025 4:14 AM [facility] Secobarbital <50 <50 ng/mL 04/30/2025 4:14 AM EST [facility] Tramadol <50 <50 ng/mL 04/30/2025 4:14 AM EST [facility] Temazepam <20 <20 ng/mL 04/30/2025 4:14 AM [facility] Temazepam Glucuronide <50 <50 ng/mL 04/30/2025 4:14 AM [facility] Urine Urine specimen obtained by clean catch procedure / Unknown Non-blood Collection / Unknown 04/26/2025 1:47 PM EST 04/26/2025 6:10 PM EST [facility] - 04/30/2025 4:14 AM EST This [...] laboratory. Test performed by LC-MS/MS at the [facility]. This test was developed and its performance characteristics determined by [facility]. It has not been cleared or approved by the FDA. The laboratory is regulated under CLIA as qualified to perform high-complexity testing. This test is used for clinical purposes. 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
--- NOTE | 2025-05-18 17:32 | ED_ITS ---
<Statement entered by Rhona Early DO - 05/18/25 21:21> I was consulted by the [facility], and we discussed the complexity of problems being addressed. I approve the treatment and management plan for this patient's care in the emergency department, thus performing a substantial portion of the medical decision making. Rhona Early DO Discharge Plan Disposition Patient Disposition: [facility] Prescriptions Prescriptions: No Action amlodipine [Norvasc] 10 mg tablet 10 mg PO DAILY Qty: 90 3RF Rx Instructions: Take 1 tablet by mouth once daily lisinopril 40 mg tablet 40 mg PO DAILY Qty: 90 3RF metoprolol succinate 100 mg tablet extended release 24 hr See Rx Instructions .ROUTE .COMPLEX Qty: 90 3RF Dose Instruction: Take 1 tablet by mouth once daily Rx Instructions: Take 1 tablet by mouth once daily diclofenac sodium 1 % gel 2 g topical QID Qty: 100 2RF Rx Instructions: apply to single elbow, wrist or hand; for hand includes palm/fingers/back of hand Vraylar 4.5 mg capsule 4.5 mg PO DAILY fluoxetine 40 mg capsule 40 mg PO BID Patient Comments: TAKE 1 CAPSULE BY MOUTH ONCE DAILY (DME) blood-glucose meter [Blood Glucose Monitoring] Kit See Rx Instructions MISCELLANEOUS Qty: 1 0RF Rx Instructions: As directed (DME) Accu-Chek Guide test strips Strip See Rx Instructions .ROUTE .MEDSUPPLY Qty: 10 2RF Rx Instructions: As directed (DME) lancets [Accu-Chek Softclix Lancets] [facility] See Rx Instructions .ROUTE .MEDSUPPLY Qty: 100 2RF Rx Instructions: As directed (DME) blood-glucose meter [Accu-Chek Guide Glucose Meter] [facility] See Rx Instructions .ROUTE .MEDSUPPLY Qty: 1 0RF Rx Instructions: As directed naloxone [Narcan] 4 mg/actuation spray,non-aerosol 4 mg intranasal NEEDED PRN (Reason: Opioid Overdose) Patient Comments: ADMINISTER A SINGLE SPRAY IN ONE NOSTRIL UPON SIGNS OF OPIOID OVERDOSE. CALL 911. REPEAT AFTER 3 MINUTES IF NO RESPONSE. hydrochlorothiazide 25 mg tablet 25 mg PO DAILY trazodone 50 mg tablet 50 mg PO DAILY Qty: 30 2RF morphine 15 mg tablet extended release 15 mg PO BID ondansetron 4 mg tablet,disintegrating 4 mg PO Q8H PRN (Reason: nausea and vomiting) Qty: 30 0RF (DME) FreeStyle Lite Strips Strip See Rx Instructions .ROUTE .COMPLEX Qty: 50 3RF Dose Instruction: USE 1 STRIP TWICE DAILY TO TEST SUGAR OR DIRECTED Rx Instructions: USE 1 STRIP TWICE DAILY TO TEST SUGAR OR DIRECTED (DME) lancets [FreeStyle Lancets] 28 gauge misc See Rx Instructions .ROUTE .COMPLEX Qty: 100 0RF Dose Instruction: USE DIRECTED Rx Instructions: USE DIRECTED metformin 500 mg tablet See Rx Instructions .ROUTE .COMPLEX Qty: 180 3RF Dose Instruction: Take 1 tablet by mouth twice daily Rx Instructions: Take 1 tablet by mouth twice daily omeprazole 20 mg capsule,delayed release(DR/EC) 20 mg PO DAILY Qty: 90 3RF Rx Instructions: Take 1 capsule by mouth once daily Ozempic 0.25 mg or 0.5 mg (2 mg/3 mL) pen injector See Rx Instructions .ROUTE .COMPLEX Qty: 3 3RF Dose Instruction: INJECT 0.5 MG SUBCUTANEOUSLY ONCE A WEEK Rx Instructions: INJECT 0.5 MG SUBCUTANEOUSLY ONCE A WEEK (DME) lancets [OneTouch Delica Plus Lancet] 33 gauge misc See Rx Instructions MISCELLANEOUS Rx Instructions: Test sugar twice daily or as directed aspirin 81 mg tablet,delayed release (DR/EC) 81 mg PO DAILY Rx Instructions: Take 1 tablet by mouth once daily Referrals Follow up/Referrals: Brian Morris APRN [Primary Care Provider, Family Practice] - See instructions Clinical Impressions Clinical Impression: Acute renal failure Stand Alone Forms Stand Alone Forms: Transfer Record - ED Print Language Print Language: Urugu[place] Discharge ED Provider: Rhona Early General Adult HPI <Keya Myrick (ED), MAT - Last Filed: 05/18/25 20:34> General Chief complaint: Dizziness Stated complaint: Low Blood Pressure, Dizziness Time Seen by Provider: 05/18/25 17:20 History of Present Illness HPI narrative: 54-year-old male presents to the ED today for complaint of weakness, dizziness and low blood pressure. States that he has been feeling bad for the last 2 days. He has been vomiting for 2 days. states he has had 2 syncopal episodes at home with no injuries. Patient told nursing staff that he has not been able to keep anything down for over a month. He did go to urgent treatment center and they told him to go to the ER due to his blood pressure being 73/42 at the urgent treatment center. Currently on arrival to the ER his blood pressure is 88/57, patient is alert and oriented. Patient did not tell me this but nurse just came and told me that he has had a 20 pound weight loss in the last month. Related Data Home Medications ?Medication ?Instructions ?Recorded ?Confirmed fluoxetine 40 mg capsule 40 mg PO BID Depression 11/2505/08/25 lancets 33 gauge (OneTouch Delica 02/04/22 05/08/25 Plus Lancet) naloxone 4 mg/actuation nasal 4 mg intranasal NEEDE D PRN 02/10/24 05/08/25 spray (Narcan) Opioid Overdose aspirin 81 mg tablet,delayed 81 mg PO DAILY 07/14/24 1 07/09/24 release hydrochlorothiazide 25 mg tablet 25 mg PO DAILY 05/08/25 cariprazine 4.5 mg capsule 4.5 mg PO DAILY 04/05/25 (Vraylar) morphine 15 mg tablet,extended 15 mg PO BID 05/08/25 1 07/09/24 release Previous Rx's ?Medication ?Instructions ?Recorded blood sugar diagnostic (Accu-Chek #10 ea 09/09/23 Guide test strips) blood-glucose meter (Accu-Chek #1 ea 09/09/23 Guide Glucose Meter) blood-glucose meter (Blood Glucose #1 ea 09/09/23 Monitoring kit) lancets (Accu-Chek Softclix #100 ea 09/09/23 Lancets) blood sugar diagnostic (FreeStyle #50 ea 12/29/23 Lite Strips) lancets 28 gauge (FreeStyle #100 ea 01/25/24 Lancets) amlodipine 10 mg tablet (Norvasc) 10 mg PO DAILY #90 t abs 09/07/24 lisinopril 40 mg tablet 40 mg PO DAILY #90 tabs 08/29 metoprolol succinate 100 mg See Rx Instructions .Route 09/07/24 tablet,extended release 24 hr .COMPLEX #90 tabs diclofenac sodium 1 % topical gel 2 g topical QID #100 grams 09/11/24 trazodone 50 mg tablet 50 mg PO DAILY #30 tabs 03/01 metformin 500 mg tablet See Rx Instructions .Route 0 10/31/24 .COMPLEX #180 tabs omeprazole 20 mg capsule,delayed 20 mg PO DAILY #90 ca ps 12/24/24 release semaglutide 0.25 mg or 0.5 mg (2 See Rx Instructions . Route 03/08/25 mg/3 mL) subcutaneous pen injector .COMPLEX #3 mL (Ozempic) ondansetron 4 mg disintegrating 4 mg PO Q8H PRN nausea and 05/08/25 tablet vomiting #30 tabs Allergies Allergy/AdvReac Type Severity Reaction Status Date / Time No Known Drug Allergies Allergy Unknown Unknown Verified 05/08/25 09:44 allergy reaction PFS <Keya Myrick (ED), FILM SPOOLER - Last Filed: 05/18/25 20:34> [facility] Disclaimer: The information contained in this section may have been updated after the patient was seen, as this information can be updated by other users. Medical History (Updated 05/18/25 @ 20:35 by Keya Myrick (ED), FILM SPOOLER) History of trigger finger Neurostimulator device in situ Kidney function abnormal Acute insomnia Family history of asthma Allergic rhinitis KARLEY (obstructive sleep apnea) Diabetes HLD (hyperlipidemia) Right knee pain Hypertension Surgical History History of kidney donation History of carpal tunnel release of both wrists History of partial knee replacement Hx of cholecystectomy Hx of repair of right rotator cuff Family History Other Cancer Coronary artery disease Diabetes Heart attack Stroke Substance abuse Social History Smoking Status: Never smoker second hand exposure: No alcohol intake: never substance use type: former substance user and marijuana current occupational status: employed and disabled Travel in the last 8 weeks?: None household members: spouse and family housing: house marital status: caffeine: Yes Have you lived/traveled outside US in past 30 days?: No Contact w/someone who lives/traveled outside US past 30 days?: No Exposure to someone with infectious disease in past 14 days?: No Do you have a fever (greater than 100.4 F or 38 C)?: No Have you tested positive for COVID-19?: No Exposed to someone with COVID-19 in past 14 days?: No Do you have a sore throat?: No Do you have a cough?: No Do you have any weakness?: No Do you have any diarrhea?: No Are you experiencing any unusual bleeding?: No Do you have any muscle aches/pain?: No Do you have any abdominal pain?: No Are you experiencing loss of taste or smell?: No Other Medical History Have you received the Flu Vaccine for this season: Yes Have you received the Pneumonia Vaccine: No <Keya [facility] (ED), FILM SPOOLER - Last Filed: 05/18/25 20:34> ROS Obtained: Yes Systems reviewed as appropriate & no additional complaints except as documented Constitutional Constitutional: Reports as per HPI Physical Exam <Keya [facility] (ED), FILM SPOOLER - Last Filed: 05/18/25 20:34> General General appearance: alert Head Head exam: atraumatic and normocephalic Eye Eye exam: Present PERRL and EOMI ENT ENT exam: Present normal oropharynx and mucous membranes moist Neck Neck exam: Present full ROM and trachea midline Respiratory Respiratory exam: Present normal lung sounds bilaterally Cardiovascular Cardiovascular exam: Present regular rate, normal rhythm, normal heart sounds, +S1 and +S2 Abdominal Exam Abdominal exam: Present soft and normal bowel sounds Extremities Exam Extremities exam: Present full ROM and normal capillary refill Neurological Exam Neurological exam: Present alert and oriented X3 Skin Skin exam: Present warm and dry Medical Decision Making <Keya [facility] (ED), FILM SPOOLER - Last Filed: 05/18/25 20:34> Medical Records Screening: Per USPSTF and CDC recommendations, given the prevalence of disease in our region, it is our hospital?s policy to screen for HIV and viral Hepatitis for all patients aged 18 and over and those with ongoing risk factors. [place] Inquiry Pt receiving controlled substance: No [place] was queried for this patient: No Vital Signs: 05/18/25 17:17 05/18/25 17:17 05/18/25 17:23 Temperature 97.8 F 97.8 F Temperature Source Oral Oral Pulse Rate 65 69 Pulse Rate [Right] 65 Respiratory Rate 16 16 14 Blood Pressure 88/57 L 88/57 L Blood Pressure [Right Arm] 88/57 L Blood Pressure Mean 62 Blood Pressure Mean [Right Arm] 67 Blood Pressure Source Automatic Cuff Blood Pressure Source [Right Arm] Automatic Cuff Blood Pressure Position Supine Blood Pressure Position [Right Arm] Supine 02 Sat by Pulse Oximetry 97 97 97 Oxygen Delivery Method Room Air Room Air 05/18/25 17:31 05/18/25 17:54 05/18/25 17:59 Temperature Temperature Source Pulse Rate 76 76 61 Pulse Rate [Right] Respiratory Rate 15 12 14 Blood Pressure 80/57 L 72/47 L 75/50 L Blood Pressure [Right Arm] Blood Pressure Mean 66 55 57 Blood Pressure Mean [Right Arm] Blood Pressure Source Blood Pressure Source [Right Arm] Blood Pressure Position Blood Pressure Position [Right Arm] 02 Sat by Pulse Oximetry 96 95 96 Oxygen Delivery Method 05/18/25 18:00 05/18/25 18:03 05/18/25 18:11 Temperature Temperature Source Pulse Rate 75 56 L Pulse Rate [Right] Respiratory Rate 12 10 L 12 Blood Pressure 77/47 L 93/52 L 110/55 L Blood Pressure [Right Arm] Blood Pressure Mean 56 58 Blood Pressure Mean [Right Arm] Blood Pressure Source Blood Pressure Source [Right Arm] Blood Pressure Position Blood Pressure Position [Right Arm] 02 Sat by Pulse Oximetry 95 97 Oxygen Delivery Method 05/18/25 18:21 05/18/25 18:25 05/18/25 18:30 Temperature Temperature Source Pulse Rate 81 78 Pulse Rate [Right] Respiratory Rate 16 21 12 Blood Pressure 93/66 L 108/65 L 119/72 Blood Pressure [Right Arm] Blood Pressure Mean Blood Pressure Mean [Right Arm] Blood Pressure Source Blood Pressure Source [Right Arm] Blood Pressure Position Blood Pressure Position [Right Arm] 02 Sat by Pulse Oximetry 96 96 Oxygen Delivery Method 05/18/25 18:35 05/18/25 18:40 05/18/25 18:45 Temperature Temperature Source Pulse Rate 83 82 79 Pulse Rate [Right] Respiratory Rate 16 10 L 15 Blood Pressure 109/77 L 123/79 113/73 Blood Pressure [Right Arm] Blood Pressure Mean Blood Pressure Mean [Right Arm] Blood Pressure Source Blood Pressure Source [Right Arm] Blood Pressure Position Blood Pressure Position [Right Arm] 02 Sat by Pulse Oximetry 98 98 95 Oxygen Delivery Method 05/18/25 18:51 05/18/25 18:55 05/18/25 19:00 Temperature Temperature Source Pulse Rate 74 77 68 Pulse Rate [Right] Respiratory Rate 10 L 10 L 10 L Blood Pressure 98/57 L 115/74 116/67 Blood Pressure [Right Arm] Blood Pressure Mean Blood Pressure Mean [Right Arm] Blood Pressure Source Blood Pressure Source [Right Arm] Blood Pressure Position Blood Pressure Position [Right Arm] 02 Sat by Pulse Oximetry 97 95 96 Oxygen Delivery Method 05/18/25 19:05 05/18/25 19:10 Temperature Temperature Source Pulse Rate 83 70 Pulse Rate [Right] Respiratory Rate 12 12 Blood Pressure 107/64 L 96/68 L Blood Pressure [Right Arm] Blood Pressure Mean Blood Pressure Mean [Right Arm] Blood Pressure Source Blood Pressure Source [Right Arm] Blood Pressure Position Blood Pressure Position [Right Arm] 02 Sat by Pulse Oximetry 96 94 L Oxygen Delivery Method Lab Data Lab Results 05/18/25 17:31: WBC 12.4 H, RBC 5.66, Hgb 16.0, Hct 48.6, MCV 85.9, MCH 28.3, MCHC 32.9, RDW 12.8, Plt Count 353, MPV 10.0, Neut % (Auto) 53.9, Lymph % (Auto) 29.3, [place] % (Auto) 10.2 H, Eos % (Auto) 4.3, Baso % (Auto) 1.3, Neut # (Auto) 6.7, Lymph # (Auto) 3.6, [place] # (Auto) 1.3 H, Eos # (Auto) 0.5 H, Baso # (Auto) 0.2, ESR 1, Sodium 138, Potassium 3.9, Chloride 95 L, Carbon Dioxide 22, Anion Gap 24.9 H, BUN 63 H, Creatinine 9.10 H, Estimated Creat Clear 12, Estimated GFR 6 L*, Est GFR ( Amer) 7 L*, Glucose 147 H, Hemoglobin A1c 6.4 H, Calcium 9.6, Magnesium 2.1, Total Bilirubin 1.2, AST 26, ALT 39, Alkaline Phosphatase 78, Total Creatine Kinase 61, Troponin I < 0.01, C-Reactive Protein 1.9, Total Protein 8.3 H, Albumin 5.2 H, Globulin 3.1, Albumin/Globulin Ratio 1.7, Lipase 170, TSH 1.92, Free T4 1.20, Thyroxine (T4) 8.2, HCV Ab LIOR w/Rflx PCR Qn Negative, HIV Ag/Ab Combo Qual Negative 12/12/25 17:37: Chlamy pneumoniae PCR Not detected, Adenovirus (PCR) Not detected, B. pertussis DNA (PCR) Not detected, Coronavirus OC43 (PCR) Not detected, Coronavirus HKU1 (PCR) Not detected, Coronavirus 229E (PCR) Not detected, SARS-CoV-2 (PCR) Not detected 05/18/25 17:37: SARS-CoV-2 (PCR) Not detected, Coronavirus NL63 (PCR) Not detected, Human Metapneumovir PCR Not detected, Influenza A (H1) PCR Not detected, Influ A (H1N1/09) PCR Not detected, Influenza A (H3) PCR Not detected, Influenza Type A (PCR) Not detected, Influenza A Untype (PCR) Not detected, Influenza Type B (PCR) Not detected 05/18/25 17:37: Influenza Type B (PCR) Not detected, M. pneumoniae (PCR) Not detected, Parainfluenza 1 (PCR) Not detected, Parainfluenza 2 (PCR) Not detected, Parainfluenza 3 (PCR) Not detected, Parainfluenza 4 (PCR) Not detected, RSV (PCR) Not detected, Entero/Rhino (PCR) Not detected 05/18/25 19:19: VBG pH 7.27 L, VBG pCO2 50.2, VBG pO2 38.1, VBG HCO3 22.6 L, VBG Total CO2 24.2, VBG O2 Saturation 67.9, VBG Base Excess -4.2 L, VBG Lactic Acid 2.7 H 05/18/25 20:16: Troponin I < 0.01 05/18/25 20:43: Urine Color Yellow, Urine Appearance Clear, Urine pH 5.0, Ur Specific [place] 1.031 H, Urine Protein Trace, Urine Glucose (UA) Negative, Urine Ketones Trace, Urine Blood Negative, Urine Nitrate Positive A, Urine Bilirubin 2+ A, Urine Urobilinogen 0.2, Ur Leukocyte Esterase Negative, Urine RBC None, Urine WBC 3-5, Ur Squamous Epith Cells None, Urine Bacteria 1+ 05/18/25 17:31 05/18/25 17:31 Orders (Tests/Meds): ED MEDICATIONS Generic Name Dose Route Start Last Admin Trade Name Freq PRN Reason Stop Dose Admin Sodium Chloride 1,000 mls @ 999 mls/hr 05/18/25 20:39 05/18/25 20:48 Sod Chlor 0.9% 1000ml Bag IV 05/18/25 21:39 999 mls/hr .Q1H1M ONE Administration Sodium Chloride 1,000 mls @ 999 mls/hr 05/18/25 20:55 Sod Chlor 0.9% 1000ml Bag IV 05/18/25 21:55 .Q1H1M ONE Metformin HCl 500 mg 05/19/25 07:00 Metformin 500mg Tablet PO 06/18/25 06:59 DAILYDM JAVAN Morphine Sulfate 15 mg 05/18/25 21:15 Morphine 15mg Extended Release Tab PO 05/18/25 21:16 ONCE ONE Discontinued Medications Generic Name Dose Route Start Last Admin Trade Name Freq PRN Reason Stop Dose Admin Acetaminophen 1,000 mg 05/18/25 17:29 05/18/25 17:40 Acetaminophen 1,000mg/100ml Vial IV 05/18/25 17:30 1,000 mg ONCE ONE Administration Sodium Chloride 1,000 mls @ 999 mls/hr 05/18/25 17:27 05/18/25 20:47 Sod Chlor 0.9% 1000ml Bag IV 05/18/25 18:27 Infused .Q1H1M ONE Infusion Ketorolac Tromethamine 30 mg 05/18/25 17:29 05/18/25 17:41 Ketorolac 30mg/Ml Vial IV 05/18/25 17:30 30 mg ONCE ONE Administration Ondansetron HCl 4 mg 05/18/25 17:33 05/18/25 17:41 Ondansetron 4mg/2ml Vial IV 05/18/25 17:34 4 mg ONCE ONE Administration ORDERS Category Date Time Status CT abdomen pelvis wo con Stat Cat Scan 05/18/25 17:[address] chest wo con Stat Cat Scan 05/18/25 17:[address] head/brain wo con Stat Cat Scan 05/18/25 17:57 Completed Chest XR -- portable [XR chest portable] Stat Exams 05/18/25 17:27 Completed C-Reactive Protein Stat Lab 05/18/25 17:31 Completed CBC [Complete Blood Count Auto Diff] Stat Lab 05/18/25 17:31 Completed Comprehensive Metabolic Panel Stat Lab 05/18/25 17:31 Completed Creatine Kinase Stat Lab 05/18/25 17:31 Completed Erythrocyte Sedimentation Rate Stat Lab 05/18/25 17:31 Completed Free T4 (Free Thyroxine) Stat Lab 05/18/25 17:31 Completed Full Resp Panel w/COVID ([facility]) Routine Lab 05/18/25 17:37 Completed HIV Combo Stat Lab 05/18/25 17:31 Completed Hemoglobin A1C Stat Lab 05/18/25 17:31 Completed Hepatitis C Ab Qual. W/ RFX Stat Lab 05/18/25 17:31 Completed Lipase Stat Lab 05/18/25 17:31 Completed Magnesium Stat Lab 05/18/25 17:31 Completed Rapid PCR Covid and Flu A/B Stat Lab 05/18/25 17:37 Completed T4 (Thyroxine) Stat Lab 05/18/25 17:31 Completed TSH [Thyroid Stimulating Hormone] Stat Lab 05/18/25 17:31 Completed Trop I [Troponin I] Stat Lab 05/18/25 17:31 Completed Troponin I Q3H Lab 05/18/25 20:16 Completed Troponin I Q3H Lab 05/18/25 23:30 Ordered Urinalysis and Microscopic Stat Lab 05/18/25 20:43 Completed Blood Culture Stat Micro 05/18/25 18:10 Received Urine Culture Stat Micro 05/18/25 20:43 Received VBG [Venous Blood Gas] Stat RT 05/18/25 19:19 Completed Medical Decision Narrative: patient is a 54-year-old male presenting to the emergency department for evaluation of nausea, vomiting, and syncope episodes. Patient is hemodynamically stable and nontoxic-appearing upon arrival, afebrile. Patient has had a significant weight loss in the past month according to nursing staff. Differential diagnosis includes cancer, thyroid problem, diabetes problem chronic illness, viral illness, among others. Workup will be conducted with hematologic labs, specific imaging, provocative test. Initial inventions include crystalloid bolus, analgesics, antibiotics. Initial workup reviewed by ne hematologic labs are remarkable for White count as 12.4, BUN was 63, creatinine was 9, GFR was 6 A1c 6.4, troponin less than 0.01, TSH was 1.9, free T41.20. Head CT showed no intracranial hemorrhage, CT chest showed no suspicious findings, CT abdomen and pelvis was negative for no acute findings.Patient's blood pressure up-and-down throughout the ER visit. Patient received IV fluids throughout the visit. Patient remained stable and mentating appropriately the entire time. I called [facility] who did not want to except patient because they thought he was just dehydrated. I called [facility] to talk to Shannan, nurse practitioner and she accepted patient with no problem to the ICU. Dr. Vinson is the accepting physician for the transfer. Patient will be transferred to [facility]. <Rhona Early, DO - Last Filed: 05/18/25 21:21> Vital Signs: 05/18/25 17:17 05/18/25 17:17 05/18/25 17:23 Temperature 97.8 F 97.8 F Temperature Source Oral Oral Pulse Rate 65 69 Pulse Rate [Right] 65 Respiratory Rate 16 16 14 Blood Pressure 88/57 L 88/57 L Blood Pressure [Right Arm] 88/57 L Blood Pressure Mean 62 Blood Pressure Mean [Right Arm] 67 Blood Pressure Source Automatic Cuff Blood Pressure Source [Right Arm] Automatic Cuff Blood Pressure Position Supine Blood Pressure Position [Right Arm] Supine 02 Sat by Pulse Oximetry 97 97 97 Oxygen Delivery Method Room Air Room Air 05/18/25 17:31 05/18/25 17:54 05/18/25 17:59 Temperature Temperature Source Pulse Rate 76 76 61 Pulse Rate [Right] Respiratory Rate 15 12 14 Blood Pressure 80/57 L 72/47 L 75/50 L Blood Pressure [Right Arm] Blood Pressure Mean 66 55 57 Blood Pressure Mean [Right Arm] Blood Pressure Source Blood Pressure Source [Right Arm] Blood Pressure Position Blood Pressure Position [Right Arm] 02 Sat by Pulse Oximetry 96 95 96 Oxygen Delivery Method 05/18/25 18:00 05/18/25 18:03 05/18/25 18:11 Temperature Temperature Source Pulse Rate 75 56 L Pulse Rate [Right] Respiratory Rate 12 10 L 12 Blood Pressure 77/47 L 93/52 L 110/55 L Blood Pressure [Right Arm] Blood Pressure Mean 56 58 Blood Pressure Mean [Right Arm] Blood Pressure Source Blood Pressure Source [Right Arm] Blood Pressure Position Blood Pressure Position [Right Arm] 02 Sat by Pulse Oximetry 95 97 Oxygen Delivery Method 05/18/25 18:21 05/18/25 18:25 05/18/25 18:30 Temperature Temperature Source Pulse Rate 81 78 Pulse Rate [Right] Respiratory Rate 16 21 12 Blood Pressure 93/66 L 108/65 L 119/72 Blood Pressure [Right Arm] Blood Pressure Mean Blood Pressure Mean [Right Arm] Blood Pressure Source Blood Pressure Source [Right Arm] Blood Pressure Position Blood Pressure Position [Right Arm] 02 Sat by Pulse Oximetry 96 96 Oxygen Delivery Method 05/18/25 18:35 05/18/25 18:40 05/18/25 18:45 Temperature Temperature Source Pulse Rate 83 82 79 Pulse Rate [Right] Respiratory Rate 16 10 L 15 Blood Pressure 109/77 L 123/79 113/73 Blood Pressure [Right Arm] Blood Pressure Mean Blood Pressure Mean [Right Arm] Blood Pressure Source Blood Pressure Source [Right Arm] Blood Pressure Position Blood Pressure Position [Right Arm] 02 Sat by Pulse Oximetry 98 98 95 Oxygen Delivery Method 05/18/25 18:51 05/18/25 18:55 05/18/25 19:00 Temperature Temperature Source Pulse Rate 74 77 68 Pulse Rate [Right] Respiratory Rate 10 L 10 L 10 L Blood Pressure 98/57 L 115/74 116/67 Blood Pressure [Right Arm] Blood Pressure Mean Blood Pressure Mean [Right Arm] Blood Pressure Source Blood Pressure Source [Right Arm] Blood Pressure Position Blood Pressure Position [Right Arm] 02 Sat by Pulse Oximetry 97 95 96 Oxygen Delivery Method 05/18/25 19:05 05/18/25 19:10 Temperature Temperature Source Pulse Rate 83 70 Pulse Rate [Right] Respiratory Rate 12 12 Blood Pressure 107/64 L 96/68 L Blood Pressure [Right Arm] Blood Pressure Mean Blood Pressure Mean [Right Arm] Blood Pressure Source Blood Pressure Source [Right Arm] Blood Pressure Position Blood Pressure Position [Right Arm] 02 Sat by Pulse Oximetry 96 94 L Oxygen Delivery Method Lab Data Lab results reviewed: Yes I reviewed the patient's lab results. Lab Results 05/18/25 17:31: WBC 12.4 H, RBC 5.66, Hgb 16.0, Hct 48.6, MCV 85.9, MCH 28.3, MCHC 32.9, RDW 12.8, Plt Count 353, MPV 10.0, Neut % (Auto) 53.9, Lymph % (Auto) 29.3, [place] % (Auto) 10.2 H, Eos % (Auto) 4.3, Baso % (Auto) 1.3, Neut # (Auto) 6.7, Lymph # (Auto) 3.6, [place] # (Auto) 1.3 H, Eos # (Auto) 0.5 H, Baso # (Auto) 0.2, ESR 1, Sodium 138, Potassium 3.9, Chloride 95 L, Carbon Dioxide 22, Anion Gap 24.9 H, BUN 63 H, Creatinine 9.10 H, Estimated Creat Clear 12, Estimated GFR 6 L*, Est GFR ( Amer) 7 L*, Glucose 147 H, Hemoglobin A1c 6.4 H, Calcium 9.6, Magnesium 2.1, Total Bilirubin 1.2, AST 26, ALT 39, Alkaline Phosphatase 78, Total Creatine Kinase 61, Troponin I < 0.01, C-Reactive Protein 1.9, Total Protein 8.3 H, Albumin 5.2 H, Globulin 3.1, Albumin/Globulin Ratio 1.7, Lipase 170, TSH 1.92, Free T4 1.20, Thyroxine (T4) 8.2, HCV Ab LIOR w/Rflx PCR Qn Negative, HIV Ag/Ab Combo Qual Negative 05/18/25 17:37: Chlamy pneumoniae PCR Not detected, Adenovirus (PCR) Not detected, B. pertussis DNA (PCR) Not detected, Coronavirus OC43 (PCR) Not detected, Coronavirus HKU1 (PCR) Not detected, Coronavirus 229E (PCR) Not detected, SARS-CoV-2 (PCR) Not detected 05/18/25 17:37: SARS-CoV-2 (PCR) Not detected, Coronavirus NL63 (PCR) Not detected, Human Metapneumovir PCR Not detected, Influenza A (H1) PCR Not detected, Influ A (H1N1/09) PCR Not detected, Influenza A (H3) PCR Not detected, Influenza Type A (PCR) Not detected, Influenza A Untype (PCR) Not detected, Influenza Type B (PCR) Not detected 05/18/25 17:37: Influenza Type B (PCR) Not detected, M. pneumoniae (PCR) Not detected, Parainfluenza 1 (PCR) Not detected, Parainfluenza 2 (PCR) Not detected, Parainfluenza 3 (PCR) Not detected, Parainfluenza 4 (PCR) Not detected, RSV (PCR) Not detected, Entero/Rhino (PCR) Not detected 05/18/25 19:19: VBG pH 7.27 L, VBG pCO2 50.2, VBG pO2 38.1, VBG HCO3 22.6 L, VBG Total CO2 24.2, VBG O2 Saturation 67.9, VBG Base Excess -4.2 L, VBG Lactic Acid 2.7 H 05/18/25 20:16: Troponin I < 0.01 05/18/25 20:43: Urine Color Yellow, Urine Appearance Clear, Urine pH 5.0, Ur Specific [place] 1.031 H, Urine Protein Trace, Urine Glucose (UA) Negative, Urine Ketones Trace, Urine Blood Negative, Urine Nitrate Positive A, Urine Bilirubin 2+ A, Urine Urobilinogen 0.2, Ur Leukocyte Esterase Negative, Urine RBC None, Urine WBC 3-5, Ur Squamous Epith Cells None, Urine Bacteria 1+ Orders (Tests/Meds): ED MEDICATIONS Generic Name Dose Route Start Last Admin Trade Name Freq PRN Reason Stop Dose Admin Sodium Chloride 1,000 mls @ 999 mls/hr 05/18/25 20:39 05/18/25 20:48 Sod Chlor 0.9% 1000ml Bag IV 05/18/25 21:39 999 mls/hr .Q1H1M ONE Administration Sodium Chloride 1,000 mls @ 999 mls/hr 05/18/25 20:55 Sod Chlor 0.9% 1000ml Bag IV 05/18/25 21:55 .Q1H1M ONE Metformin HCl 500 mg 05/19/25 07:00 Metformin 500mg Tablet PO 06/18/25 06:59 DAILYDM JAVAN Morphine Sulfate 15 mg 05/18/25 21:15 Morphine 15mg Extended Release Tab PO 05/18/25 21:16 ONCE ONE Discontinued Medications Generic Name Dose Route Start Last Admin Trade Name Freq PRN Reason Stop Dose Admin Acetaminophen 1,000 mg 05/18/25 17:29 05/18/25 17:40 Acetaminophen 1,000mg/100ml Vial IV 05/18/25 17:30 1,000 mg ONCE ONE Administration Sodium Chloride 1,000 mls @ 999 mls/hr 05/18/25 17:27 05/18/25 20:47 Sod Chlor 0.9% 1000ml Bag IV 05/18/25 18:27 Infused .Q1H1M ONE Infusion Ketorolac Tromethamine 30 mg 05/18/25 17:29 05/18/25 17:41 Ketorolac 30mg/Ml Vial IV 05/18/25 17:30 30 mg ONCE ONE Administration Ondansetron HCl 4 mg 05/18/25 17:33 05/18/25 17:41 Ondansetron 4mg/2ml Vial IV 05/18/25 17:34 4 mg ONCE ONE Administration ORDERS Category Date Time Status CT abdomen pelvis wo con Stat Cat Scan 05/18/25 17:[address] chest wo con Stat Cat Scan 05/18/25 17:[address] head/brain wo con Stat Cat Scan 05/18/25 17:57 Completed Chest XR -- portable [XR chest portable] Stat Exams 05/18/25 17:27 Completed C-Reactive Protein Stat Lab 05/18/25 17:31 Completed CBC [Complete Blood Count Auto Diff] Stat Lab 05/18/25 17:31 Completed Comprehensive Metabolic Panel Stat Lab 05/18/25 17:31 Completed Creatine Kinase Stat Lab 05/18/25 17:31 Completed Erythrocyte Sedimentation Rate Stat Lab 05/18/25 17:31 Completed Free T4 (Free Thyroxine) Stat Lab 05/18/25 17:31 Completed Full Resp Panel w/COVID ([facility]) Routine Lab 05/18/25 17:37 Completed HIV Combo Stat Lab 05/18/25 17:31 Completed Hemoglobin A1C Stat Lab 05/18/25 17:31 Completed Hepatitis C Ab Qual. W/ RFX Stat Lab 05/18/25 17:31 Completed Lipase Stat Lab 05/18/25 17:31 Completed Magnesium Stat Lab 05/18/25 17:31 Completed Rapid PCR Covid and Flu A/B Stat Lab 05/18/25 17:37 Completed T4 (Thyroxine) Stat Lab 05/18/25 17:31 Completed TSH [Thyroid Stimulating Hormone] Stat Lab 05/18/25 17:31 Completed Trop I [Troponin I] Stat Lab 05/18/25 17:31 Completed Troponin I Q3H Lab 05/18/25 20:16 Completed Troponin I Q3H Lab 05/18/25 23:30 Ordered Urinalysis and Microscopic Stat Lab 05/18/25 20:43 Completed Blood Culture Stat Micro 05/18/25 18:10 Received Urine Culture Stat Micro 05/18/25 20:43 Received VBG [Venous Blood Gas] Stat RT 05/18/25 19:19 Completed Medical Decision Narrative: patient is a 54-year-old male presenting to the emergency department for evaluation of nausea, vomiting, and syncope episodes. Patient is hemodynamically stable and nontoxic-appearing upon arrival, afebrile. Patient has had a significant weight loss in the past month according to nursing staff. Differential diagnosis includes cancer, thyroid problem, diabetes problem chronic illness, viral illness, among others. Workup will be conducted with hematologic labs, specific imaging, provocative test. Initial inventions include crystalloid bolus, analgesics, antibiotics. Initial workup reviewed by me hematologic labs are remarkable for White count as 12.4, BUN was 63, creatinine was 9, GFR was 6 A1c 6.4, troponin less than 0.01, TSH was 1.9, free T41.20. Head CT showed no intracranial hemorrhage, CT chest showed no suspicious findings, CT abdomen and pelvis was negative for no acute findings.Patient's blood pressure up-and-down throughout the ER visit. Patient received IV fluids throughout the visit. Patient remained stable and mentating appropriately the entire time. I called who did not want to except patient because they thought he was just dehydrated. I called [facility] to talk to Shannan, nurse practitioner and she accepted patient with no problem to the ICU. Dr. Vinson is the accepting physician for the transfer. Patient will be transferred to [facility]. Rhona Early DO Bedside ultrasound was performed which showed appropriate EF of the heart, decompressed IVC, therefore given patient's decreased blood pressures, I felt that IV fluids were appropriate. Patient received 2 L of IV fluids and the third liter was started. Norepinephrine was not started prior to transfer. Critical Care <Keya Myrick (ED), FILM SPOOLER - Last Filed: 05/18/25 20:34> Critical Care Time Critical Care Time: No
--- NOTE | 2025-05-18 17:32 | ECG_ITS ---
APPROVED REPORT Exam: Resting ECG HR:70 bpm ECG Measurements Heart Rate 70 AXES MA 195 P 64 QRSd 102 QRS 72 QT 392 T 64 QTc 413 Conclusion SINUS RHYTHM WITH SINUS ARRHYTHMIA LOW QRS VOLTAGE IN PRECORDIAL LEADS [QRS DEFLECTION < 1.0 mV IN CHEST LEADS] BORDERLINE ECG UNCONFIRMED REPORT Electronically signed by : POOJA FUNG, 05/21/2025 00:20:38
[2025-05-18] MEDS: ACETAMINOPHEN 1,000MG/100ML VIAL 1000 MG IV (17:40)
[2025-05-18] MEDS: ONDANSETRON 4MG/2ML VIAL 4 MG IV (17:41)
[2025-05-18] MEDS: KETOROLAC 30MG/ML VIAL 30 MG IV (17:41)
[2025-05-18] MEDS: 0.9 % SODIUM CHLORIDE 1000ML 1,000 ML 999 ML IV ×3 (17:41→20:48)
[2025-05-18 17:42] LABS: Hematocrit 48.6 % (42.0-52.0); Hemoglobin 16.0 g/dL (14.1-18.0); Immature Granulocytes % 1.0 %; Mean Corpuscular HGB Conc 32.9 g/dL (31.8-35.4); Mean Corpuscular Hemoglobin 28.3 pg (27.0-31.2); Mean Corpuscular Volume 85.9 fl (80-94); Nucleated Red Blood Cells % 0 %; Platelet Count 353 K/mm3 (142-424); Red Blood Count 5.66 M/mm3 (4.60-6.20); Red Cell Distribution Width-SD 39.4 fL; White Blood Count 12.4 K/mm3 (4.8-10.8)
[2025-05-18 17:44] LABS: Coronavirus 19, PCR Not Detected (NotDetected); Influenza A, PCR Not Detected (NotDetected); Influenza B, PCR Not Detected (NotDetected)
[2025-05-18 17:53] LABS: Alanine Aminotransferase 39 U/L (12-78); Albumin Level 5.2 g/dl (3.5-5.0); Albumin/Globulin Ratio 1.7 (1.1-1.8); Alkaline Phosphatase 78 U/L (38-126); Anion Gap 24.9 mEq/L (5-15); Aspartate Amino Transferase 26 U/L (17-59); Bilirubin,Total 1.2 mg/dl (0.2-1.3); Blood Urea Nitrogen 63 mg/dl (9-20); Calcium 9.6 mg/dl (8.4-10.2); Carbon Dioxide 22 mmol/L (22.0-30.0); Chloride 95 mmol/L (98-107); Creatinine Clearance Estimated 12 mL/min (50-200); Estimated Glomerular Filt Rate 6 ml/min (>60); GFR (African American) 7 ML/MIN (>60); Globulin 3.1 g/dL (1.3-3.2); Glucose 147 mg/dl (74-100); Lipase 170 U/L (23-300); Magnesium 2.1 mg/dl (1.6-2.3); Potassium 3.9 mmoL/L (3.5-5.1); Sodium 138 mmol/L (136-145); Total Protein,Serum 8.3 g/dl (6.3-8.2)
[2025-05-18 17:55] LABS: Creatinine,Serum 9.10 mg/dl (0.66-1.25)
--- NOTE | 2025-05-18 17:56 | PC.NURSE ---
MAT Wilkinson notified of Cr. of 9.1.
--- NOTE | 2025-05-18 17:57 | CT_ITS ---
PROCEDURE INFORMATION: Exam: CT Chest Without Contrast; Diagnostic Exam date and time: 05/18/2025 6:16 PM Age: 54 years old Clinical indication: Other: Syncope/wt loss TECHNIQUE: Imaging protocol: Diagnostic computed tomography of the chest without contrast. Radiation optimization: All CT scans at this facility use at least one of these dose optimization techniques: automated exposure control; mA and/or kV adjustment per patient size (includes targeted exams where dose is matched to clinical indication); or iterative reconstruction. COMPARISON: CR XR CHEST PORTABLE 05/18/2025 5:45 PM FINDINGS: Lungs: Unremarkable. No consolidation. No masses. Pleural spaces: Unremarkable. No pneumothorax. No pleural effusion. Heart: Unremarkable. No cardiomegaly. No pericardial effusion. Coronary arteries: Mild calcific atherosclerotic disease of the LAD. Lymph nodes: Right paratracheal and right hilar calcified nodes compatible with prior granulomatous process. Vasculature: There is mild calcific atherosclerotic disease of the thoracic aorta without aneurysmal dilatation. Bones/joints: Unremarkable. No acute fracture. Soft tissues: Unremarkable. IMPRESSION: No suspicious findings.
--- NOTE | 2025-05-18 17:57 | CT_ITS ---
PROCEDURE INFORMATION: Exam: CT Abdomen And Pelvis Without Contrast Exam date and time: 05/18/2025 6:16 PM Age: 54 years old Clinical indication: Other: Weight loss; Additional info: Wt loss TECHNIQUE: Imaging protocol: Computed tomography of the abdomen and pelvis without contrast. Radiation optimization: All CT scans at this facility use at least one of these dose optimization techniques: automated exposure control; mA and/or kV adjustment per patient size (includes targeted exams where dose is matched to clinical indication); or iterative reconstruction. COMPARISON: US KIDNEY 09/23/2022 11:15 AM FINDINGS: Tubes, catheters and devices: Implanted medical imaging director with leads extending to L3-L4. Liver: Normal. No mass. Gallbladder and biliary ducts: There are surgical clips within the gallbladder fossa. Pancreas: Normal. No ductal dilation. Spleen: Multiple benign-appearing calcific densities of the spleen. Adrenal glands: Normal. No mass. Kidneys and ureters: Left kidney surgically absent. Stomach and bowel: Diverticula are scattered throughout the colon without inflammatory changes. Appendix: No evidence of appendicitis. Intraperitoneal space: Unremarkable. No free air. No significant fluid collection. Vasculature: Unremarkable. No abdominal aortic aneurysm. Lymph nodes: Unremarkable. No enlarged lymph nodes. Urinary bladder: Unremarkable as visualized. Reproductive: Unremarkable as visualized. Bones/joints: Unremarkable. No acute fracture. Soft tissues: Normal. IMPRESSION: No acute findings.
--- NOTE | 2025-05-18 17:57 | CT_ITS ---
PROCEDURE INFORMATION: Exam: CT Head Without Contrast Exam date and time: 05/18/2025 6:14 PM Age: 54 years old Clinical indication: Syncope and collapse TECHNIQUE: Imaging protocol: Computed tomography of the head without contrast. Radiation optimization: All CT scans at this facility use at least one of these dose optimization techniques: automated exposure control; mA and/or kV adjustment per patient size (includes targeted exams where dose is matched to clinical indication); or iterative reconstruction. COMPARISON: CT HEAD/BRAIN WO CON 05/05/2023 11:28 AM FINDINGS: Brain: There is mild diffuse cerebral volume loss present. Multiple subcortical and deep hypoattenuating white matter foci are present, likely related to small vessel senescent changes and can also be seen with prior infectious / inflammatory insult, or prior traumatic events. No hyperattenuating foci are identified to suggest acute intracranial hemorrhage. Cerebral ventricles: No ventriculomegaly. Paranasal sinuses: Visualized sinuses are unremarkable. No fluid levels. Mastoid air cells: Visualized mastoid air cells are well aerated. Bones: Unremarkable. No acute fracture. Soft tissues: Unremarkable. IMPRESSION: 1. Multiple subcortical and deep hypoattenuating white matter foci are present, likely related to small vessel senescent changes and can also be seen with prior infectious / inflammatory insult, or prior traumatic events. 2. No hyperattenuating foci are identified to suggest acute intracranial hemorrhage.
[2025-05-18 18:01] LABS: Hemoglobin A1C 6.4 % (4.0-6.0)
[2025-05-18 18:05] LABS: Troponin I < 0.01 ng/ml (0.00-0.034)
[2025-05-18 18:29] LABS: Creatine Kinase 61 U/L (55-170)
[2025-05-18 18:42] LABS: C-Reactive Protein 1.9 mg/L (0-4)
[2025-05-18 18:48] LABS: Free T4 (Free Thyroxine) 1.20 ng/dl (0.78-2.19); T4 (Thyroxine) 8.2 ug/dl (5.53-11.0)
[2025-05-18 18:54] LABS: Adenovirus,PCR Not Detected (NotDetected); Chlamydophila Pneumoniae, PCR Not Detected (NotDetected); Coronavirus 19, PCR Not Detected (NotDetected); Coronovirus HKU1,PCR Not Detected (NotDetected); Influenza A, PCR Not Detected (NotDetected); Influenza AH1, 2009 Not Detected (NotDetected); Influenza AH1, PCR Not Detected (NotDetected); Influenza AH3,PCR Not Detected (NotDetected); Influenza B, PCR Not Detected (NotDetected); Mycoplasma Pneumoniae, PCR Not Detected (NotDetected); Parainfluenza 1, PCR Not Detected (NotDetected); Parainfluenza 2, PCR Not Detected (NotDetected); Parainfluenza 3, PCR Not Detected (NotDetected); Parainfluenza 4, PCR Not Detected (NotDetected)
[2025-05-18 19:01] LABS: Thyroid Stimulating Hormone 1.92 uIU/mL (0.465-4.68)
[2025-05-18 19:28] LABS: Hepatitis C Ab Qual. W/ RFX NEGATIVE (Negative)
[2025-05-18 19:31] LABS: VBG HCO3 22.6 mmol/L (23-30); VBG PCO2 50.2 mmol/L (35-51); VBG PH 7.27 mmol/L (7.31-7.41); VBG PO2 38.1 mmol/L (28-40)
[2025-05-18 19:36] LABS: Lactate Venous 2.7 mmol/L (0.4-2.0)
[2025-05-18 20:46] LABS: Microscopic, Urine URINE MICROSCOPIC (MICROSCOPIC)
[2025-05-18 20:48] LABS: Color,Urine YELLOW (Yellow); Glucose,Urine (UA) Negative (Negative); Ketones,Urine TRACE (Negative); Leukocyte Esterase,Urine Negative (Negative); PH,Urine 5.0 (5.0-8.5); Protein,Urine TRACE (Negative); Urobilinogen,Urine 0.2 EU/dl (0.2)
[2025-05-18 21:00] LABS: Bilirubin,Urine 2+ (Negative); Specific Gravity, Urine 1.031 (1.005-1.030)
[2025-05-18 21:05] LABS: Bacteria,Urine 1+ /lpf
--- NOTE | 2025-05-18 21:13 | PC.NURSE ---
Report given to Sheri FLEMING at [facility]
[2025-05-18 21:15] LABS: Troponin I < 0.01 ng/ml (0.00-0.034)
[2025-05-18] MEDS: METFORMIN 500MG TABLET 500 MG PO (21:23)
[2025-05-18] MEDS: MORPHINE 15MG EXTENDED RELEASE TAB 15 MG PO (21:23)
--- NOTE | 2025-05-18 22:06 | PC.NURSE ---
pt only has 2 PIVs 18g in R antecubital that was placed by Conrado Archibald. 20g Left antecubital that was placed by Kim Mckeon RN during dayshift.
[2025-05-18 23:35] LABS: Reflex Lactic Add Lactic Reflex
== END 2025-05-18 22:03 ==
PROVIDERS: Nurse Practitioner; Emergency Provider Student in an Organized Health Care Education/Training Program; PCP Nurse Practitioner Family
DX: I95.9 Hypotension, unspecified (principal); N17.9 Acute kidney failure, unspecified; R53.1 Weakness; R11.10 Vomiting, unspecified; R55 Syncope and collapse; I10 Essential (primary) hypertension; E78.5 Hyperlipidemia, unspecified; E11.65 Type 2 diabetes mellitus with hyperglycemia; Z79.84 Long term (current) use of oral hypoglycemic drugs
CPT/HCPCS: 0223U; 51702; 70450; 71045; 71250; 74176; 80053; 81001; 82550; 82803; 83036; 83690; 83735; 84436; 84439; 84443; 84484; 85025; 85651; 86140; 86803; 87040; 87086; 87389; 87636; 93005; 96361; 96374; 96375; 99285; J0131; J0696; J1885; J2405; J7030

== ENCOUNTER 2025-05-28 10:43 | Outpatient (CLI) | payer MEDICAID, SELFPAY ==
--- OUTSIDE RECORDS SUMMARY | 2025-04-26 13:40 | XMS_ITS | Encounter Summary ---
Author Organization Healthcare Address [address] [place] [address] Care Team Providers Care Keno Terminal Operator Name Role Phone Brian Morris APRN Primary Care Provider [phone] Reason for Referral * Other Medical (Routine) - Pending Review Specialty Diagnoses / Procedures Referred By Contac t Referred To Contact Diagnoses Chronic right shoulder pain Procedures Peripheral Nerve Stimulator - Trial Michi kSelton MD [address] [address] Phone: tel: fax: Referral ID Status Reason Start Date Expiration Date V isits Requested Visits Authorized [id number] Pending Review 04/26/2025 10/26/2026 1 1 Reason for Visit * Reason Comments Follow-up Med Refill Encounter Details Date Type Department Care Team (Late st Contact Info) Description 04/26/2025 1:40 PM EST Office Visit [facility] Interventional [facility] Medicine [address] [place] [phone] Michi Skelton MD [address] [address] Chronic right shoulder pain (Primary Dx); Medication management Social History Tobacco Use Types Packs/Day Years Used Date Smoking Tobacco: Former Cigarettes 0 Q uit: 2002 Passive Smoke Exposure: Never [...] Sign Reading Time Taken Comments Blood Pressure 138/92 04/26/2025 1:10 PM EST Pulse 90 04/26/2025 1:10 PM EST Temperature 36.3 C (97.3 F) 04/26/2025 1:10 PM EST Respiratory Rate 16 04/26/2025 1:10 PM EST Oxygen Saturation - - Inhaled Oxygen Concentration - - Weight 96.6 kg (213 lb) 04/26/2025 1:10 PM EST Height 167.6 cm (5' 6 ) 04/26/2025 1:10 PM EST Body Mass Index 34.38 04/26/2025 1:10 PM EST documented in this encounter Miscellaneous Notes * Clinician Note - Raquel Humphrey - 04/26/2025 1:40 PM EST Morphine 04/26 8 am * Progress Notes - Michi Skelton MD - 04/26/2025 1:40 PM EST Images from the original note were not included. Interventional Pain Medicine Follow Up Note Subjective: Interval History 04/26/2025: Juanjose presents today as a follow-up for medication refill for chronic right knee pain. Reports pain is worsening some since last visit. Similar characterisitics but pain levels range from 3-9/10. Still described as ache, sharp at times. Still exacerbated with standing, walking, stairs,weather changes and reduced somewhat with pacing activity, rest, ice/heat, medication. He continues to utilize Morphine 15mg ER BID for right knee pain (last filled ) along with CBD/THC gummies (receipts brought) and SCS (Yo). Reports generally >50% pain relief and derives functional drive from current regimen. Denies untoward effects from medication. Keeps in a securelocation. Has Narcan in case of emergency. Current GPS: 53.5 Previous GPS: 53.5 History of Present Illness: Juanjose Borden is a 54 y.o. male presents for Chronic right knee pain s/p multiple surgeries inpast s/p right L3/L4 DRG. Other hx includes sleep apnea (uses CPAP) and HTN Pain Site: right knee Onset: years Severity: 10/14 Descriptors: Dull, aching Aggravating Factors: Walking, standing Relieving Factors: pain medication, DRG Associated Symptoms: None Current medication Current Pain Medications ARIPiprazole (Abilify) 10 MG tablet ARIPiprazole (Abilify) 20 MG tablet Take 1 tablet by mouth nightly. ARIPiprazole (Abilify) 5 MG tablet diclofenac (Voltaren) [...] day. Do not crush, chew, or split. morphine CR (MS Contin) 15 MG 12 hr tablet Take 1 tablet by mouth 2 times a day. Do not crush, chew, or split. traZODone (Desyrel) 50 MG tablet Vraylar 4.5 MG capsule Take 1 capsule by mouth daily. Previous Pain Medications NSAIDs, tylenol, voltaren gel, [...] Effort normal, no shortness of breath noted GI Soft; non tender; lbm yesterday, soft Skin Skin is warm and dry Psychiatric A & O X 4; mood/affect congruent with situation; denies suicidal ideation; no signsof impairment Musculoskeletal Exam Lower Extremity Motor Strength Right Left L2: 5/5 5/5 L3: 5/5 5/5 L4: 5/5 5/ L5: 5/ 5/5 S1: 5/ 5 Knee - right Exam Right Palpation tender + Effusion - Pain with ROM with right knee Imaging: XR of the right knee from 02-24-24 shows intact patellofemoral arthoplasty with OA Assessment & Plan: Juanjose Borden is a 54 y.o. male with persistent right knee pain. We will continue a multimodaltreatment approach and involve interventional technique where indicated. He is responding favorablyto SCS (Yo) and oral medication maintenance (MSER). . Anticoagulation: ASA 81mg daily #Chronic right knee [...] 15 mg every 12 hours for pain - discussed saphenous nerve PNS trial with SPRINT as a new option for his right knee pain #Chronic prescription opioid use -Rx Morphine ER 15mg BID #60 (2) 30 day prescriptions given today - Patient purchased CBD gummies; receipts have been scanned into chart A Controlled substance/opioid agreement: Signed 09/07/24 B Last LCMS was 09/07/24 appropriate; POC UDS appropriate today for opioid and THC will send for confirmation for monitoring purposes C PDMP/TEDDY reviewed today: appropriate D As [...] opioids and stores medication in safe place EJaylyn Has Narcan for emergency use Follow up in 2 months for medication reevaluation documented in this encounter Plan of Treatment Upcoming Encounters Date Type Department Care Team (Late st Contact Info) Description 06/27/2025 1:20 PM EST Office Visit [facility] Inter[facility] [place] [phone] Michi Skelton MD 2400 [facility] [address] [phone] 06/27/2025 2:00 PM EST Procedure Visit [facility] Inter[facility] [place] [phone] Michi Skelton MD 2400 [facility] [address] [place] [phone] 07/09/2025 1:20 PM EST Office Visit [facility] [place] [phone] Michi Skelton MD 2400 [facility] [address] [place] [phone] 08/23/2025 1:40 PM EDT Office Visit [facility] Inter[facility] Medicine [facility] [place] [address] Michi Skelton MD 2400 [facility] [address] [place] [address] 10/05/2025 10:40 AM EDT Office Visit [facility] [address] [place] [address] Kaiden Geiger MD [address] [place] [address] Scheduled Orders Name Type Priority Associated Diagnoses Orde r Schedule Peripheral Nerve Stimulator - Trial Procedures Routine Chronic right shoulder pain 1 Occurrences starting 04/26/2025 until 10/28/2026 documented as of this encounter Procedures Procedure Name Priority Date/Time Associated Diagnosis Comments PAIN MANAGEMENT, QUANTITATIVE URINE DRUG TESTING Routine 04/26/2025 1:47 PM EST Medication management PAIN MANAGEMENT, QUANTITATIVE URINE DRUG TESTING Routine 04/26/2025 1:47 PM EST Medication management documented in this encounter Results * (ABNORMAL) Pain Management, Quantitative Urine Drug Testing (04/26/2025 1:47 PM EST) [facility] Alprazolam <20 <20 ng/mL 04/30 4:14 AM EST [facility] [place] Midazolam <20 <20 ng/mL 2024 4:14 AM EST [facility] [place] Triazolam <20 <20 ng/mL 2024 4:14 AM EST [facility] Alprazolam <10 <10 ng/mL 04/30/2025 4:14 AM EST [facility] Aminoclonazepam <20 <20 ng/mL 5 4:14 AM EST [facility] Amphetamine <50 <50 ng/mL 04/30/2025 4:14 AM EST [facility] Benzoylecgonine <50 <50 ng/mL 5 4:14 AM EST [facility] Buprenorphine <10 <10 ng/mL 04/30/2025 4:14 AM [facility] Buprenorphine Glucuronide <50 <50 ng/mL 04/30/2025 4:14 AM [facility] Butalbital <50 <50 ng/mL 04/30/2025 4:14 AM [facility] 9 Carboxy THC >250(H) <10 ng/mL 04/30/2025 4:14 AM [facility] 9 Carboxy THC Glucuronide >500(H) <25 ng/mL 04/30/2025 4:14 AM [facility] Clonazepam <10 <10 ng/mL 04/30/2025 4:14 AM [facility] Codeine <50 <50 ng/mL 04/30/2025 4:14 AM [facility] Codeine Glucuronide <50 <50 ng/mL 04/30 4:14 AM [facility] Cyclobenzaprine <50 <50 ng/mL 4:14 AM [facility] Desmethyl Tramadol <50 <50 ng/mL 2024 4:14 AM [facility] Diazepam <10 <10 ng/mL 04/30/2025 4:14 AM [facility] EDDP - Methadone Metabolite <50 <50 ng/mL 04/30/2025 4:14 AM [facility] Fentanyl <1 <1 ng/mL 04/30/2025 4:14 AM [facility] Hydrocodone <50 <50 ng/mL 04/30/2025 4:14 AM [facility] Hydromorphone <50 <50 ng/mL 04/30/2025 4:14 AM [facility] Hydromorphone Glucuronide <50 <50 ng/mL 04/30/2025 4:14 AM [facility] Lorazepam <20 <20 ng/mL 04/30/2025 4:14 AM [facility] Lorazepam Glucuronide <50 <50 ng/mL 04/30/2025 4:14 AM [facility] MDA <50 <50 ng/mL 04/30/2025 4:14 AM [facility] MDMA <50 <50 ng/mL 04/30/2025 4:14 AM [facility] Meperidine <50 <50 ng/mL 04/30/2025 4:14 AM [facility] Methadone <50 <50 ng/mL 04/30/2025 4:14 AM [facility] Methamphetamine <50 <50 ng/mL 4:14 AM [facility] Methylphenidate <50 <50 ng/mL 4:14 AM EST [facility] 6 Monoacetyl morphine <10 <10 ng/mL 04/30/2025 4:14 AM [facility] Morphine 367(H) <50 ng/mL 04/30/2025 4:14 AM [facility] Morphine Glucuronide >1,000(H) <50 ng/mL 04/08 4:14 AM [facility] Naloxone <50 <50 ng/mL 04/30/2025 4:14 AM [facility] Naloxone Glucuronide <50 <50 ng/mL 04/08 4:14 AM [facility] Norbuprenorphine <10 <10 ng/mL 04/30/20 4:14 AM [facility] Norbuprenorphine Glucuronide <50 <50 ng/mL 04/30/2025 4:14 AM [facility] Nordiazepam <20 <20 ng/mL 04/30/2025 4:14 AM [facility] Norfentanyl <2 <2 ng/mL 04/30/2025 4:14 AM [facility] Normeperidine <50 <50 ng/mL 04/30/2025 4:14 AM [facility] PCP Quant, Ur <50 <50 ng/mL 04/30/2025 4:14 AM [facility] Phenobarbital <50 <50 ng/mL 04/30/2025 4:14 AM [facility] Oxazepam <20 <20 ng/mL 04/30/2025 4:14 AM [facility] Oxazepam Glucuronide <50 <50 ng/mL 04/08 4:14 AM [facility] Oxycodone <50 <50 ng/mL 04/30/2025 4:14 AM EST [facility] Oxymorphone <50 <50 ng/mL 04/30/2025 4:14 AM EST [facility] Oxymorphone Glucuronide <50 <50 ng/mL 04/30/2025 4:14 AM EST [facility] Secobarbital <50 <50 ng/mL 04/30/2025 4:14 AM EST [facility] Tramadol <50 <50 ng/mL 04/30/2025 4:14 AM EST [facility] Temazepam <20 <20 ng/mL 04/30/2025 4:14 AM EST [facility] Temazepam Glucuronide <50 <50 ng/mL 04/30/2025 4:14 AM EST [facility] Urine Urine specimen obtained by clean catch procedure / Unknown Non-blood Collection / Unknown 04/26/2025 1:47 PM EST 04/26/2025 6:10 PM EST [facility] - 04/30/2025 4:14 AM EST This report is intended for use in clinical monitoring or management of patients. It is NOT intended for use in employment-related drug testing. For pain management, the absence of expected drug(s) and/or drug metabolite(s) may indicate non-compliance, inappropriate timing of specimen collection relative to drug administration, poor drug absorption, or limitations of testing. Interpretive questions should be directed to the laboratory. Test performed by LC-MS/MS at the [facility]. This test was developed and its performance characteristics determined by [facility]. It has not been cleared or approved by the FDA. The laboratory is regulated under CLIA as qualified to perform high-complexity testing. This test is used for clinical purposes. 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
[2025-05-28 17:36] LABS: Chloride 103 mmol/L (98-107); Potassium 4.7 mmoL/L (3.5-5.1); Sodium 137 mmol/L (136-145)
[2025-05-28 17:39] LABS: Anion Gap 13.7 mEq/L (5-15); Blood Urea Nitrogen 16 mg/dl (9-20); Calcium 10.3 mg/dl (8.4-10.2); Carbon Dioxide 25 mmol/L (22.0-30.0); Creatinine,Serum 0.90 mg/dl (0.66-1.25); Estimated Glomerular Filt Rate 89 ml/min (>60); GFR (African American) 107 ML/MIN (>60); Glucose 136 mg/dl (74-100)
--- OUTSIDE RECORDS SUMMARY | 2025-05-29 13:08 | XMS_ITS | Encounter Summary ---
Author Organization Healthcare Address [address] [place] [address] Care Team Providers Care Chisel Trimmer Name Role Phone Brian Morris APRN Primary Care Provider [phone] Encounter Details Date Type Department Care Team (Late st Contact Info) Description 05/18/2025 Orders Only External Location [address] [place] [address] Provider, External Social History Tobacco Use Types [...] Description 06/27/2025 1:20 PM EST Office Visit [facility] Interventional Pain Medicine [address] [place] [phone] Michi Skelton MD [address] [facility] [address] [place] [phone] 06/27/2025 2:00 PM EST Procedure Visit [facility] Interventional Pain Medicine [address] [place] [phone] Michi Skelton MD [address] [facility] [address] [place] [address] 07/09/2025 1:20 PM EST Office Visit [facility] Interventional Pain Medicine [address] [place] [phone] [place] [address] [place] [address] [address] [address] 08/23/2025 1:40 PM EDT Office Visit [facility] Interventional Pain Medicine [address] [place] [phone] [place] [address] [place] [phone] 10/05/2025 10:40 AM EDT Office Visit [place] [id number] [facility] [address] [place] [address] Kaiden Geiger MD [address] [place] [phone] documented as of this encounter Procedures Procedure Name Priority Date/Time Associated Diagnosis Comments CT THORACIC OUTSIDE IMAGES 05/18/2025 documented in this encounter Results * CT THORACIC OUTSIDE IMAGES (05/18/2025) Anatomical Region Laterality Modality Computed Tomogra phy 05/18/[address] PROCEDURES Final Result documented in this encounter Visit Diagnoses Not [...] documented as of this encounter Care Teams Chisel Trimmer Relationship Specialty Start Date End Date Brian Morris APRN [id number] PCP - General 09/23/22 documented as of this encounter
--- OUTSIDE RECORDS SUMMARY | 2025-05-29 13:08 | XMS_ITS | Encounter Summary ---
Author Organization Healthcare Address [address] [place] [address] Care Team Providers Care Casing Blower Name Role Phone Brian Morris APRN Primary Care Provider [phone] Encounter Details Date Type Department Care Team (Late st Contact Info) Description 05/18/2025 Orders Only External Location [address] [place] [address] Provider, External Social History Tobacco Use Types [...] Description 06/27/2025 1:20 PM EST Office Visit [facility] Interventional Pain Medicine [address] [place] [phone] Michi Skelton MD 2400 [facility] [address] [place] [address] 06/27/2025 2:00 PM EST Procedure Visit [facility] Interventional Pain Medicine [address] [place] [phone] [place] [address] [place] [address] [address] [place] [phone] 07/09/2025 1:20 PM EST Office Visit [facility] Interventional Pain Medicine [address] [place] [phone] [place] [address] [place] [address] [address] [address] 08/23/2025 1:40 PM EDT Office Visit [facility] Interventional Pain Medicine [address] [place] [phone] [place] [address] [place] [phone] 10/05/2025 10:40 AM EDT Office Visit [place] [address] [facility] [address] [place] [address] Kaiden Geiger MD [address] [place] [phone] documented as of this encounter Procedures Procedure Name Priority Date/Time Associated Diagnosis Comments XR OUTSIDE IMAGES 05/18/2025 documented in this encounter Results * XR OUTSIDE IMAGES (05/18/2025) Anatomical Region Laterality Modality Radiographic Amalia ging 05/18/2025 External Provider IMG XR PROCEDURES Final Result documented in this encounter [...] documented as of this encounter Care Teams Casing Blower Relationship Specialty Start Date End Date Brian Morris APRN [id number] PCP - General 09/23/22 documented as of this encounter
--- OUTSIDE RECORDS SUMMARY | 2025-05-29 13:08 | XMS_ITS | Encounter Summary ---
Author Organization Healthcare Address [address] [place] [address] Care Team Providers Care Mathematical Scientist Name Role Phone Brian Morris APRN Primary Care Provider [phone] Encounter Details Date Type Department Care Team (Late st Contact Info) Description 01/18/2024 Orders Only External Location [address] [place] [address] Brian Morris APRN [id number] Social History Tobacco Use Types Packs/Day Years [...] Description 06/27/2025 1:20 PM EST Office Visit [facility] Interventional Pain Medicine [address] [place] [address] Michi Skelton MD 2400 [facility] [address] [place] [address] 06/27/2025 2:00 PM EST Procedure Visit [facility] Interventional Pain Medicine [address] [place] [phone] Michi Skelton MD [address] [phone] 07/09/2025 1:20 PM EST Office Visit [facility] Interventional Pain Medicine [address] [place] [phone] [place] [address] [place] [phone] 08/23/2025 1:40 PM EDT Office Visit [facility] Interventional Pain Medicine [address] [place] [phone] [place] [address] [place] [phone] 10/05/2025 10:40 AM EDT Office Visit [place] [id number] [facility] [address], [place] [address] Kaiden Geiger MD [address] [place] [address] documented as of this encounter Procedures Procedure Name Priority Date/Time Associated Diagnosis Comments XR MSK OUTSIDE IMAGES 01/18/2024 10:56 AM EDT documented in this encounter Results * XR MSK OUTSIDE IMAGES (01/18/2024 10:56 AM EDT) Anatomical Region Laterality Modality Radiographic Amalia ging 01/18/2024 10:5 6 AM EDT Brian Morris CORRESPONDENCE SPECIALIST IMG XR PROCEDURES Final Resul t documented in this [...] documented as of this encounter Care Teams Mathematical Scientist Relationship Specialty Start Date End Date Brian Morris APRN [id number] PCP - General 09/23/22 documented as of this encounter
--- OUTSIDE RECORDS SUMMARY | 2025-05-29 13:08 | XMS_ITS | Encounter Summary ---
Author Organization Healthcare Address [address] [place] [address] Care Team Providers Care Airport Tower Controller Name Role Phone Aura Camejo Primary Care Provider [phone] Brian Morris APRN Primary Care Provider [phone] Encounter Details Date Type Department Care Team (Late Contact Info) Description 01/01/2022 Orders Only External Location [address] [place] [address] Provider, External Social History Tobacco Use Types [...] Encounters Date Type Department Care Team (Late Contact Info) Description 06/27/2025 1:20 PM EST Office Visit [facility] Interventional Pain Medicine [address] [place] [address] Michi Skelton MD [address] [phone] 06/27/2025 2:00 PM EST Procedure Visit [facility] Interventional Pain Medicine [address] [place] [phone] Michi Skelton MD [address] [phone] 07/09/2025 1:20 PM EST Office Visit [facility] Interventional Pain Medicine [address] [place] [phone] [place] [address] [place] [phone] 08/23/2025 1:40 PM EDT Office Visit [facility] Interventional Pain Medicine [address] [place] [phone] [place] [address] [place] [phone] 10/05/2025 10:40 AM EDT Office Visit [address], [place] [address] Kaiden Geiger MD [address] [place] [phone] documented as of this encounter Procedures [...] documented as of this encounter Care Teams Airport Tower Controller Relationship Specialty Start Date End Date Aura Camejo PA [address] [place], [place] [id number] PCP - General 12/11/21 09/22/22 Brian Morris APRN [id number] PCP - General 09/23/22 documented as of this encounter
--- OUTSIDE RECORDS SUMMARY | 2025-05-29 13:08 | XMS_ITS | Clinical Summary ---
Author Organization [employer] ([place], [place], [place], [place], [place]) Address [address] [place] [address] Care Team Providers Care Claims Manager Name Role Phone Alexandra Brian MAT Primary Care Provider [phone] Allergies No known active allergies Medications FLUoxetine [...] the past 12 months, has t he [employer], [employer], [employer], or water [employer] threatened to shut off services in your [...] Do you speak a language other than [place] at [facility]? No 08/16/2023 Do you want help [...] or Tdap) 05/08/2033 05/08/2023, 12/31/2016, 09/17/2011 Insurance [facility] Advance Directives For more information, please contact: [phone] * Full Code (Latest Code Status on File) Date Activated Date Inactivated Comments 02/17/2024 9:05 AM 02/20/2024 1:44 PM * Full Code Date Activated Date Inactivated Comments 08/16/2023 8:46 AM 08/19/2023 3:09 PM Care Teams Claims Manager Relationship Specialty Start Date End Date Brian Morris APRN [address] [place] [address] PCP - General Nurse Practitioner 08/16/23
--- OUTSIDE RECORDS SUMMARY | 2025-05-29 13:08 | XMS_ITS | Clinical Summary ---
Author Organization [facility] Address [address] [place] [address] Care Team Providers Care Senior Geologist Name Role Phone Hieu Francois MD Primary Care Provider [phone] Source Comments [facility] is fully rolled out with thefollowing exceptions:General Clinical Research [facility] Social History Tobacco Use Types Packs/Day Years [...] NONE (Home) [address] [place] [address] [facility] Member Subscriber Plan / Payer (Ef fective 2016-Present) Name:Juanjose Borden Relation to Subscriber:Self Name:Juanjose Borden Payer ID:[id number] (NAIC) Group ID:Not on file Type:HMO Medicaid Address: [place], [place] Care Teams Senior Geologist Relationship Specialty Start Date End Date Hieu Francois MD Primary Care [address] [place] [address] [place] [address] PCP - General External Family Practice 03/29/17
--- OUTSIDE RECORDS SUMMARY | 2025-05-29 13:08 | XMS_ITS | Clinical Summary ---
Author Organization [facility] Address [address] [place] [address] Care Team Providers Care Eradicator Name Role Phone Alexandra Brian RIVERO Primary Care Provider [phone] Allergies No known active allergies Medications FLUoxetine [...] TO AFFECTED AREAS 3-4 TIMES DAILY 02/24/20 25 Active morphine CR (MS Contin) 15 MG 12 hr tablet Take 1 tablet by mouth 2 times a day. Do not crush, chew, or split. 60 tablet 03/28/20 25 Active morphine CR (MS Contin) 15 MG 12 hr tablet Take 1 tablet by mouth 2 times a day. Do not crush, chew, or split. 60 tablet 04/29/20 25 025 Active morphine CR (MS Contin) 15 MG 12 hr tablet Take 1 tablet by mouth 2 times a day. Do not crush, chew, or split. 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 Interventional Pain Medicine [address] [place] [address] Michi Skelton MD HCN Clinical Concern/Question 05/18/2025 Orders Only External Location [address] [place] [address] Provider, External 05/18/2025 Orders Only External Location [address] [place] [address] Provider, External 05/18/2025 Orders Only External Location [address] [place] [address] Provider, External 04/26/2025 1:40 PM EST Office Visit [facility] Interventional Pain Medicine [address] [place] [address] Michi Skelton MD Chronic right shoulder pain (Primary Dx); Medication management 04/26/2025 Travel 02/27/2025 9:20 AM EDT Office Visit [facility] Interventional Pain Medicine [address] [place] [address] Michi Skelton MD Chronic pain of right knee (Primary Dx); Chronic use of opiate for therapeutic purpose 02/27/2025 Travel from Last 3 Months Immunizations Immunization Administration Dates Next Due Hep B, adult 12/27/2007, 8,06/28/2007,2006,07/30/2006,06/29/2006 Influenza, injectable, quadr ivalent, preservative free 04/05/2019,03/29/2017 Influenza, seasonal, injectable 04/16/2016 Tdap 05/08/2023,12/31/2016,09/17/2011 Family History Medical History Relation Name Comments Diabetes Brother Gabamy Farrisn no known history Father pt adoped by stepfather Cancer Maternal Grandfather Beau Dennis Diabetes Maternal Grandfather Beau Dennis Lung cancer Maternal Grandfather Beau Dennis Stroke Maternal Grandfather Beua Dennis Cancer Maternal Grandmother Milagro Dennis Coronary artery disease Maternal Grandmother Milagro Lidya l Arthritis Mother Nikkie Borden Migraines [...] pt adoped by stepfather Maternal Grandfather Beau Olveraal Maternal Grandmother Milagro Collins Alive Mother Nikkie Borden Alive Other 1 [...] Description 06/27/2025 1:20 PM EST Office Visit [facility] Interventional Pain Medicine [address] [place] [address] Michi Skelton MD 2400 [facility] [address] [place] [address] 06/27/2025 2:00 PM EST Procedure Visit [facility] Interventional Pain Medicine [address] [place] [address] Michi Skelton MD 2400 [facility] [address] [address] 07/09/2025 1:20 PM EST Office Visit [facility] Interventional Pain Medicine [address] [place] [address] Michi Skelton MD [address] [address] 08/23/2025 1:40 PM EDT Office Visit [facility] Interventional Pain Medicine [address] [place] [address] Michi Skelton MD 2400 [facility] [address] [place] [address] 10/05/2025 10:40 AM EDT Office Visit [facility] [address] [place] [address] Kaiden Geiger MD [address] [place] [address] Health Maintenance Due Date Last Done Comments [facility]-HIV Screening 1972 [facility]-Hepatitis C Screening 1972 [facility]-Infant/Child/Adol SDOH Screenings 1972 [id number] Vaccine (#1) 06/19/1973 [facility]- SDOH Screenings 1990 [...] this topic Medical Devices Implanted Type Area Knit Goods Washer Device Identifier Shelf Expiration Date Model / Serial / Lot [place] Ultra Twinfix 5.5 - [id number] Implanted:Qt y: 1 on 05/27/2022 by Dragan Kathleen MD at [facility] Implant Right: Shoulder [employer] (Acu[employer])-[id number] 07/19/2026 [id number] / / [id number] Spinal Cord Stimulator- Implanted: (Quantity not on file) Spinal Cord Stimulator Left: Hip Description:pt states he could turn this off if needed for surgery, will take to staff am of OR [place] All Suture Qfix 2.8mm - [id number] Implanted:Qt y: 1 on 12/04/2022 by Dragan Kathleen MD at [facility] Left: Shoulder [employer] (Acu[employer]x)-[id number] 10/02/2025-9240 / / [id number] Procedures Procedure Name Priority Date/Time Associated Diagnosis Comments CT NEURO OUTSIDE IMAGES 05/18/2025 CT THORACIC OUTSIDE IMAGES 05/18/2025 XR OUTSIDE IMAGES 05/18/2025 PAIN MANAGEMENT, QUANTITATIVE URINE DRUG TESTING Routine 04/26/2025 1:47 PM EST Medication management PAIN MANAGEMENT, QUANTITATIVE URINE DRUG TESTING Routine 04/26/2025 1:47 PM EST Medication management from Last 3 Months Results * XR OUTSIDE IMAGES (05/18/2025) Anatomical Region Laterality Modality Radiographic Amalia ging 05/18/2025 us External Provider IMG XR PROCEDURES Final Result * CT THORACIC OUTSIDE IMAGES (05/18/2025) Anatomical Region Laterality Modality Computed Tomogra phy 05/18/2025 us External Provider IMG CT PROCEDURES Final Result * CT NEURO OUTSIDE IMAGES (05/18/2025) Anatomical Region Laterality Modality Computed Tomogra phy 05/18/2025 us External Provider IMG CT PROCEDURES Final Result * (ABNORMAL) Pain Management, Quantitative Urine Drug Testing (04/26/2025 1:47 PM EST) [facility] [place] Alprazolam <20 <20 ng/mL 04/30 4:14 AM EST [facility] [place] Midazolam <20 <20 ng/mL 2024 4:14 AM [facility] [place] Triazolam <20 <20 ng/mL 2024 4:14 AM [facility] Alprazolam <10 <10 ng/mL 04/30/2025 4:14 AM [facility] Aminoclonazepam <20 <20 ng/mL 5 4:14 AM [facility] Amphetamine <50 <50 ng/mL 04/30/2025 4:14 AM [facility] Benzoylecgonine <50 <50 ng/mL 4:14 AM [facility] Buprenorphine <10 <10 ng/mL 04/30/2025 4:14 AM [facility] Buprenorphine Glucuronide <50 <50 ng/mL 04/30/2025 4:14 AM [facility] Butalbital <50 <50 ng/mL 04/30/2025 4:14 AM [facility] 9 Carboxy THC >250(H) <10 ng/mL 04/30/2025 4:14 AM [facility] 9 Carboxy THC Glucuronide >500(H) <25 ng/mL 04/30/2025 4:14 AM [facility] Clonazepam <10 <10 ng/mL 04/30/2025 4:14 AM [facility] Codeine <50 <50 ng/mL 04/30/2025 4:14 AM [facility] Codeine Glucuronide <50 <50 ng/mL 04/30 4:14 AM [facility] Cyclobenzaprine <50 <50 ng/mL 4:14 AM [facility] Desmethyl Tramadol <50 <50 ng/mL 2024 4:14 AM [facility] Diazepam <10 <10 ng/mL 04/30/2025 4:14 AM [facility] EDDP - Methadone Metabolite <50 <50 ng/mL 04/30/2025 4:14 AM [facility] Fentanyl <1 <1 ng/mL 04/30/2025 4:14 AM [facility] Hydrocodone <50 <50 ng/mL 04/30/2025 4:14 AM EST [facility] Hydromorphone <50 <50 ng/mL 04/30/2025 4:14 AM EST [facility] Hydromorphone Glucuronide <50 <50 ng/mL 04/30/2025 4:14 AM EST [facility] Lorazepam <20 <20 ng/mL 04/30/2025 4:14 AM EST [facility] Lorazepam Glucuronide <50 <50 ng/mL 04/30/2025 4:14 AM EST [facility] MDA <50 <50 ng/mL 04/30/2025 4:14 AM EST [facility] MDMA <50 <50 ng/mL 04/30/2025 4:14 AM EST [facility] Meperidine <50 <50 ng/mL 04/30/2025 4:14 AM [facility] Methadone <50 <50 ng/mL 04/30/2025 4:14 AM [facility] Methamphetamine <50 <50 ng/mL 4:14 AM [facility] Methylphenidate <50 <50 ng/mL 4:14 AM [facility] 6 Monoacetyl morphine <10 <10 ng/mL 04/30/2025 4:14 AM [facility] Morphine 367(H) <50 ng/mL 04/30/2025 4:14 AM [facility] Morphine Glucuronide >1,000(H) <50 ng/mL 04/08 4:14 AM [facility] Naloxone <50 <50 ng/mL 04/30/2025 4:14 AM [facility] Naloxone Glucuronide <50 <50 ng/mL 04/08 4:14 AM [facility] Norbuprenorphine <10 <10 ng/mL 04/30/20 4:14 AM [facility] Norbuprenorphine Glucuronide <50 <50 ng/mL 04/30/2025 4:14 AM [facility] Nordiazepam <20 <20 ng/mL 04/30/2025 4:14 AM [facility] Norfentanyl <2 <2 ng/mL 04/30/2025 4:14 AM [facility] Normeperidine <50 <50 ng/mL 04/30/2025 4:14 AM [facility] PCP Quant, Ur <50 <50 ng/mL 04/30/2025 4:14 AM [facility] Phenobarbital <50 <50 ng/mL 04/30/2025 4:14 AM EST [facility] Oxazepam <20 <20 ng/mL 04/30/2025 4:14 AM [facility] Oxazepam Glucuronide <50 <50 ng/mL 04/08 4:14 AM EST [facility] Oxycodone <50 <50 ng/mL 04/30/2025 4:14 AM [facility] Oxymorphone <50 <50 ng/mL 04/30/2025 4:14 AM [facility] Oxymorphone Glucuronide <50 <50 ng/mL 04/30/2025 4:14 AM [facility] Secobarbital <50 <50 ng/mL 04/30/2025 4:14 AM [facility] Tramadol <50 <50 ng/mL 04/30/2025 4:14 AM [facility] Temazepam <20 <20 ng/mL 04/30/2025 4:14 AM [facility] Temazepam Glucuronide <50 <50 ng/mL 04/30/2025 4:14 AM [facility] Urine Urine specimen obtained by clean catch procedure / Unknown Non-blood Collection / Unknown 04/26/2025 1:47 PM EST 04/26/2025 6:10 PM EST [facility] - 04/30/2025 4:14 AM EST [...] laboratory. Test performed by LC-MS/MS at the [facility]. This test was developed and its performance characteristics determined by [facility]. It has not been cleared or approved by the FDA. The laboratory is regulated under CLIA as qualified to perform high-complexity testing. This test is used for clinical purposes. 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
--- OUTSIDE RECORDS SUMMARY | 2025-05-29 13:08 | XMS_ITS | Referral Summary ---
Author Organization [employer] ([place], [place], [place], [place], [place]) Address [address] [place] [address] Care Team Providers Care Bias Cutter Helper Name Role Phone Alexandra Brian RIVERO Primary Care Provider [phone] Allergies No known active allergies Medications FLUoxetine [...] the past 12 months, has t he [email or web address], [employer], [employer], or water [employer] threatened to shut off services in your [...] Do you speak a language other than German at [facility]? No 08/16/2023 Do you want help with [...] Plan of Treatment Not on file Insurance [facility] Advance Directives For more information, please contact: [phone] * Full Code (Latest Code Status on File) Date Activated Date Inactivated Comments 02/17/2024 9:05 AM 02/20/2024 1:44 PM * Full Code Date Activated Date Inactivated Comments 08/16/2023 8:46 AM 08/19/2023 3:09 PM Care Teams Bias Cutter Helper Relationship Specialty Start Date End Date Brian Morris APRN [id number] [facility] [address] [place]ATHER [id number] PCP - General Nurse Practitioner 08/16/23
--- OUTSIDE RECORDS SUMMARY | 2025-05-29 13:08 | XMS_ITS | Encounter Summary ---
Author Organization Healthcare Address [address] [place] [address] Care Team Providers Care Services Manager Name Role Phone Brian Morris APRN Primary Care Provider [phone] Reason for Visit * Reason Comments Med Refill Encounter Details Date Type Department Care Team (Late st Contact Info) Description 05/03/2024 Refill [facility] Interventional Pain Medicine [address] [place] [address] Sylvie Rico [id number] Social History Tobacco Use Types Packs/Day Years [...] Description 06/27/2025 1:20 PM EST Office Visit [facility] Interventional Pain Medicine [address] [place] [address] Michi Skelton MD [address]00 [facility] [address] [address] 06/27/2025 2:00 PM EST Procedure Visit [facility] Interventional Pain Medicine [address] [place] [address] Michi Skelton MD 2400 [facility] [address] [address] 07/09/2025 1:20 PM EST Office Visit [facility] Interventional Pain Medicine [address] [place] [address] [place] [address] [place] [address] [address] [address] 08/23/2025 1:40 PM EDT Office Visit [facility] Interventional Pain Medicine [address] [place] [address] [place] [address] [place] [address] [address] 10/05/2025 10:40 AM EDT Office Visit [address] [place] [address] Kaiden Geiger MD [address] [place] [phone] documented as of this encounter Visit [...] documented as of this encounter Care Teams Services Manager Relationship Specialty Start Date End Date Brian Morris APRN [id number] PCP - General 09/23/22 documented as of this encounter
--- OUTSIDE RECORDS SUMMARY | 2025-05-29 13:08 | XMS_ITS | Encounter Summary ---
Author Organization Healthcare Address [address] [place] [address] Care Team Providers Care Travel Rn Name Role Phone CorinaBrian hein MAT Primary Care Provider [phone] Reason for Visit * Reason Onset Date Comments HCN Clinical Concern/Question 05/22/2025 Encounter Details Date Type Department Care Team (Late st Contact Info) Description 05/22/2025 Telephone [facility] Interventional Pain Medicine [address] [place] [address] Michi Skelton MD 2400 [facility] [address] [place] [address] HCN Clinical Concern/Question Social History Tobacco Use Types Packs/Day Years [...] encounter Miscellaneous Notes * Telephone Encounter - Denae Rodrigues LPN - 05/23/2025 10:41 AM EST Returned call, pt states he was admitted to hospital and did receive pain medication while there . * Telephone Encounter - Deborah Mak - 05/22/2025 3:43 PM EST Clinical Concern/Question Reason for Call: patient is requesting a call back regarding him getting some pain medication from the ER. He states he is not sure if he should notify our office or not Best contact number: [phone] (home) Optimal time of day to reach caller: ANYTIME Additional comments/information from caller: None Note: Please do not reply to this message. Follow-up communication and further actions as a result of this message need to be communicated with the patient directly, if the patient is not active onMyChart. If the patient is active on MyChart, they will receive notification of the communication/outcome via [employer]. documented in this encounter Plan of Treatment Upcoming Encounters Date Type Department Care Team (Late st Contact Info) Description 06/27/2025 1:20 PM EST Office Visit [facility] Interventional Pain Medicine [address] [place] [phone] Michi Skelton MD [facility] [address] [place] [address] 06/27/2025 2:00 PM EST Procedure Visit [facility] Interventional Pain Medicine [address] [place] [phone] Michi Skelton MD [facility] [address] [place] [address] 07/09/2025 1:20 PM EST Office Visit [facility] Interventional Pain Medicine [address] [place] [phone] Michi Skelton MD [address] [facility] [address] [place] [address] 08/23/2025 1:40 PM EDT Office Visit [facility] Interventional Pain Medicine [address] [place] [address] Michi Skelton MD 2400 [facility] [address] [place] [address] 10/05/2025 10:40 AM EDT Office Visit [facility] [address] [facility] [address] [place] [address] Kaiden Geiger MD [address] [place] [phone] documented as of this encounter Visit [...] documented as of this encounter Care Teams Travel Rn Relationship Specialty Start Date End Date Brian Morris APRN [id number] PCP - General 09/23/22 documented as of this encounter
--- OUTSIDE RECORDS SUMMARY | 2025-05-29 13:08 | XMS_ITS | Encounter Summary ---
Author Organization Healthcare Address [address] [place] [address] Care Team Providers Care Banquet Chef Name Role Phone Brian Morris APRN Primary Care Provider [phone] Encounter Details Date Type Department Care Team [...] 1:20 PM EST Office Visit [facility] Interventional Pain Medicine [address] [place] [address] Michi Skelton MD 2400 [facility] [address] [place] [address] 06/27/2025 2:00 PM EST Procedure Visit [facility] Interventional Pain Medicine [address] [place] [address] Michi Skelton MD 2400 [facility] [address] [place] [address] 07/09/2025 1:20 PM EST Office Visit [facility] Interventional Pain Medicine [address] [place] [address] Michi Skelton MD 2400 [facility] [address] [address] 08/23/2025 1:40 PM EDT Office Visit [facility] Interventional Pain Medicine [address] [place] [address] Michi Skelton MD [address] [address] 10/05/2025 10:40 AM EDT Office Visit [place] [address] [place] [address] Kaiden Geiger MD [address] [place] [phone] documented as of this encounter Visit [...] documented as of this encounter Care Teams Banquet Chef Relationship Specialty Start Date End Date Brian Morris APRN [id number] PCP - General 09/23/22 documented as of this encounter
--- OUTSIDE RECORDS SUMMARY | 2025-05-29 13:08 | XMS_ITS | Clinical Summary ---
[facility] Address [address] [place] [id number] Care Team Providers Care Bench Mover Name Role Phone Unavailable Primary Care Provider [...]
--- OUTSIDE RECORDS SUMMARY | 2025-05-29 13:08 | XMS_ITS | Encounter Summary ---
Author Organization Healthcare Address [address] [place] [address] Care Team Providers Care Anthropological Linguist Name Role Phone Brian Morris APRN Primary Care Provider [phone] Encounter Details Date Type Department Care Team (Late st Contact Info) Description 05/18/2025 Orders Only External Location [address] [place] [address] Provider, External Social History Tobacco Use Types [...] Description 06/27/2025 1:20 PM EST Office Visit [facility] Interventional Pain Medicine [address] [place] [phone] Michi Skelton MD 2400 [facility] [address] [place] [address] 06/27/2025 2:00 PM EST Procedure Visit [facility] Interventional Pain Medicine [address] [place] [address] Michi Skelton MD 2400 [facility] [address] [place] [address] 07/09/2025 1:20 PM EST Office Visit [facility] Interventional Pain Medicine [address] [place] [address] [place] [address] [place] [address] [address] [address] 08/23/2025 1:40 PM EDT Office Visit [facility] Interventional Pain Medicine [address] [place] [address] [place] [address] [place] [address] 10/05/2025 10:40 AM EDT Office Visit [place] [address] [facility] [address] [place] [address] Kaiden Geiger MD [address] [place] [phone] documented as of this encounter Procedures Procedure Name Priority Date/Time Associated Diagnosis Comments CT NEURO OUTSIDE IMAGES 05/18/2025 documented in this encounter Results * CT NEURO OUTSIDE IMAGES (05/18/2025) Anatomical [...] documented as of this encounter Care Teams Anthropological Linguist Relationship Specialty Start Date End Date Brian Morris APRN [id number] PCP - General 09/23/22 documented as of this encounter
--- OUTSIDE RECORDS SUMMARY | 2025-05-29 13:08 | XMS_ITS | Encounter Summary ---
Author Organization Healthcare Address [address] [place] [id number] Care Team Providers Care Wire Stitcher Name Role Phone Brian Morris MAT Primary Care Provider [phone] Reason for Visit * Reason Comments Med Refill Encounter Details Date Type Department Care Team (Late st Contact Info) Description 06/18/2023 Refill [facility] Interventional Pain Medicine [address] [place] [phone] Tony Priest, DO [address] [place] [address] Chronic pain of right knee; Chronic pain [...] Description 06/27/2025 1:20 PM EST Office Visit [facility] Interventional Pain Medicine [address] [place] [address] [place] [address] [place] [address] 06/27/2025 2:00 PM EST Procedure Visit [facility] Interventional Pain Medicine [address] [place] [address] [place] [address] [place] [address] 07/09/2025 1:20 PM EST Office Visit [facility] Interventional Pain Medicine [address] [place] [address] Michi Skelton MD [address] [place] [address] 08/23/2025 1:40 PM EDT Office Visit [facility] Interventional Pain Medicine [address] [place] [address] Michi Skelton MD [address] [place] [address] 10/05/2025 10:40 AM EDT Office Visit [place] [address] [facility] [address] [place] [address] Kaiden Geiger MD [address] [place] [phone] documented as of this encounter Visit [...] documented as of this encounter Care Teams Wire Stitcher Relationship Specialty Start Date End Date Brian Morris APRN [id number] PCP - General 09/23/22 documented as of this encounter
== END 2025-05-28 23:59 | disposition home or self-care (01) ==
LOC: LAB.DROPOF 05-29 13:04
PROVIDERS: PCP Nurse Practitioner Family; Visit Provider Student in an Organized Health Care Education/Training Program
DX: N17.9 Acute kidney failure, unspecified (principal)
CPT/HCPCS: 80048